=== PATIENT | female | born 1960 | race Caucasian/White ===

== ENCOUNTER 2016-11-15 16:07 | Inpatient (IN) ==
[2016-11-15] MEDS ORDERED: methylPREDNISolone 125 MG/2 ML VIAL IVP ONE (16:50)
[2016-11-15] MEDS ORDERED: Ipratropium/Albuterol Neb 3 ML IH ONE (16:50)
--- NOTE | 2016-11-15 17:02 | Emergency Department Note ---
Disposition Clinical Impression: Acute exacerbation of chronic obstructive airways disease Disposition: Admitted As Inpatient Condition: Good Time of Disposition: 18:53 SOB HPI - General Chief Complaint: ED Shortness of Breath/Dyspnea Stated Complaint: Cough, MARITZA, weak Time Seen by Provider: 11/15/16 16:50 Source: patient Limitations: no limitations Nursing Notes Reviewed: Yes Vital Signs Reviewed: Yes - History of Present Illness 56-year-old history of COPD comes in complaining of cough congestion shortness of breath over the last several days. Patient continues to smoke. Pt Subjective Complaint: shortness of breath, cough Onset (ago): day(s) Context: recent illness Severity: moderate Consistency/Duration: constant Improves with: nothing Worsens with: exertion, coughing Known history of: COPD Associated symptoms: Reports: cough, wheezing Treatment prior to arrival: none Cough present: Yes Cough Description: Involuntary Cough Frequency: Intermittent Sputum production: No - Related Data Home Medications Medication Instructions Recorded Confirmed Albuterol Neb [Proventil Neb] 2.5 mg IH Q6H PRN 11/16/16 11/16/16 Buspirone HCl [Buspar] 10 mg PO BID 11/16/16 11/16/16 Gabapentin [Neurontin] 300 mg PO TID 11/16/16 11/16/16 Oxygen 1 each NS AD 11/16/16 11/16/16 Allergies Allergy/AdvReac Type Severity Reaction Status Date / Time No Known Allergies Allergy Verified 09/11/15 22:57 All systems ED: reviewed and negative except as stated. Constitutional: Denies: fever, chills, weakness, weight change Eyes: Denies: eye pain, eye discharge, vision change ENT ED: Denies: ear pain, throat pain, dental pain, hearing loss, epistaxis, congestion, dysphagia Cardiovascular: Denies: chest pain, palpitations, dyspnea on exertion, edema, syncope Respiratory: Reports: cough, dyspnea, wheezes. Denies: hemoptysis, stridor Gastrointestinal: Denies: abdominal pain, nausea, vomiting, diarrhea, constipation, hematemesis, melena, hematochezia Genitourinary: Denies: dysuria, frequency, hematuria, discharge Musculoskeletal: Denies: back pain, neck pain, arthralgia, myalgia Integumentary: Denies: rash, abrasion, lesions Neurological: Denies: headache, weakness, numbness, paresthesias, confusion, abnormal gait, vertigo Psychiatric: Denies: anxiety, depression, suicidal thoughts, homicidal thoughts , auditory hallucinations, visual hallucinations Endocrine: Denies: fatigue Hematological/Lymphatic: Denies: easy bleeding, easy bruising Allergic/Immunologic: Denies: facial swelling, urticaria Past Medical History - Past Medical History Medical history: Reports: arthritis, COPD, GERD, hyperlipidemia, hypertension, osteoporosis, other Surgical history: Reports: other Psychiatric history: Reports: anxiety, depression PROJECT COORDINATOR history: Reports: no PROJECT COORDINATOR history - Social History Smoking Status: Current every day smoker Smokeless Tobacco Status: No Alcohol use: Reports: none Drug use: Reports: none Physical Exam - General Limitations: no limitations General appearance: alert, in no apparent distress - Head Head exam: atraumatic - Eye Eye exam: Present: normal appearance, PERRL, EOMI - ENT ENT exam: normal exam, normal oropharynx, mucous membranes moist - Neck Neck exam: Present: normal inspection, full ROM, trachea midline - Chest Chest inspection: Present: normal inspection, symmetric chest wall rise - Respiratory Respiratory exam: Present: respiratory distress, wheezes, accessory muscle use, prolonged expiratory phase - Cardiovascular Cardiovascular exam: Present: regular rate, normal rhythm, normal heart sounds - Abdominal Exam Abdominal exam: Present: soft, Non-Tender. Absent: tenderness, distention, guarding, rebound, rigidity - Extremities Exam Extremities exam: Present: normal inspection, full ROM. Absent: tenderness, pedal edema - Expanded Lower Extremity Exam Neurovascular/Tendon exam: Absent: motor deficit, sensory deficit, tendon deficit Gait: observed and normal - Back Exam Back exam: Present: normal inspection, full ROM. Absent: tenderness - Neurological Exam Neurological exam: Present: alert, oriented X3 - Psychiatric Psychiatric exam: Present: normal affect, normal mood - Skin Skin exam: Present: warm, dry, intact, normal color Course - Reevaluation(s) Reevaluation #1: Patient presents with increasing shortness of breath. Workup includes negative cardiac workup negative chest x-ray. Patient had diffuse wheezes is given IV steroids and albuterol had some improvement but continued to wheeze will be admitted for further evaluation and treatment. Time: 19:05 - Consultations Consultation #1: Discussed with , admit. Time: 19:06 Vital Signs Temperature 97.8 F 11/15/16 16:47 Pulse Rate 92 11/15/16 16:47 Respiratory Rate 16 11/15/16 16:47 Blood Pressure 109/74 11/15/16 16:47 O2 Sat by Pulse Oximetry 93 11/15/16 16:47 Temperature 97.5 F L 11/17/16 04:25 Pulse Rate 81 11/17/16 04:25 Respiratory Rate 16 11/17/16 04:25 Blood Pressure 119/72 11/17/16 04:25 O2 Sat by Pulse Oximetry 91 11/17/16 04:25 Oxygen Delivery Oxygen Delivery Nasal Cannula Shortness of Breath/Dyspnea - Lab Data Lab results reviewed: Yes I reviewed the patient's lab results. Result diagrams: 11/16/16 05:35 11/16/16 05:35 Lab Results 11/15/16 11/15/16 11/15/16 Range/Units 17:07 17:07 17:08 WBC 9.3 (4.3-11.1) K/mcL RBC 5.16 H (3.82-4.97) M/mcL Hgb 14.6 (11.5-15.4) g/dL Hct 45.0 H (35.3-44.9) % MCV 87.2 (83.0-100.0) fL MCH 28.3 (28.0-33.3) pg MCHC 32.4 (31.6-35.5) g/dL RDW 13.1 (11.5-14.5) % Plt Count 303 (140-400) K/mcL MPV 9.2 L (9.4-12.4) fL Immature Gran % 0.3 (0-4) % Seg Neutrophils % 54.1 % Lymphocytes % 32.9 % Monocytes % 9.2 % Eosinophils % 2.7 % Basophils % 0.8 % Neutrophils # 5.0 (1.6-8.9) K/mcL Lymphocytes # 3.1 (0.6-4.6) K/mcL Monocytes # 0.9 (0.0-1.3) K/mcL Eosinophils # 0.3 (0.0-0.6) K/mcL Basophils # 0.1 (0.0-0.2) K/mcL Immature Plt Fraction 4.1 (1.1-6.1) % Sodium 139 (136-145) mEq/L Potassium 4.1 (3.5-4.5) mEq/L Chloride 103 (98-109) mEq/L Carbon Dioxide 26 (19-29) mEq/L BUN 7 (7-20) mg/dL Creatinine 0.71 (0.57-1.11) mg/dL Est GFR ( Amer) > 60 (> 60) Est GFR (Non-Af Amer) > 60 (> 60) BUN/Creatinine Ratio 10 (6-26) Glucose 50 L (70-99) mg/dL Calculated Osmolality 283 (280-300) Lactic Acid 1.3 (0.5-2.2) mmol/L Calcium 9.7 (8.6-10.8) mg/dL Troponin I (0-0.03) ng/mL B-Natriuretic Peptide (0-100) pg/mL 11/15/16 11/15/16 Range/Units 17:08 17:08 WBC (4.3-11.1) K/mcL RBC (3.82-4.97) M/mcL Hgb (11.5-15.4) g/dL Hct (35.3-44.9) % MCV (83.0-100.0) fL MCH (28.0-33.3) pg MCHC (31.6-35.5) g/dL RDW (11.5-14.5) % Plt Count (140-400) K/mcL MPV (9.4-12.4) fL Immature Gran % (0-4) % Seg Neutrophils % % Lymphocytes % % Monocytes % % Eosinophils % % Basophils % % Neutrophils # (1.6-8.9) K/mcL Lymphocytes # (0.6-4.6) K/mcL Monocytes # (0.0-1.3) K/mcL Eosinophils # (0.0-0.6) K/mcL Basophils # (0.0-0.2) K/mcL Immature Plt Fraction (1.1-6.1) % Sodium (136-145) mEq/L Potassium (3.5-4.5) mEq/L Chloride (98-109) mEq/L Carbon Dioxide (19-29) mEq/L BUN (7-20) mg/dL Creatinine (0.57-1.11) mg/dL Est GFR ( Amer) (> 60) Est GFR (Non-Af Amer) (> 60) BUN/Creatinine Ratio (6-26) Glucose (70-99) mg/dL Calculated Osmolality (280-300) Lactic Acid (0.5-2.2) mmol/L Calcium (8.6-10.8) mg/dL Troponin I 0.00 (0-0.03) ng/mL B-Natriuretic Peptide 14 (0-100) pg/mL - Radiology Data Radiology results reviewed: Yes I reviewed the patient's radiology results. Chest X-Ray 11/15/16 16:50 IMPRESSION: No acute abnormality. COPD. D/ / Julien Huang MD / Julien Huang MD Interpreting Provider: Julien Huang MD - EKG Data EKG attestation: Yes I reviewed and interpreted this EKG. EKG shows normal: Reports: sinus rhythm Rate: Reports: normal Rhythm: Reports: NSR Interpretation: Reports: no acute changes
[2016-11-15 17:21] LABS: Basophils # 0.1 K/mcL (0.0-0.2); Basophils % 0.8 %; Eosinophils # 0.3 K/mcL (0.0-0.6); Eosinophils % 2.7 %; Hemoglobin 14.6 g/dL (11.5-15.4); Immature Granulocytes % 0.3 % (0-4); Immature Platelets 4.1 % (1.1-6.1); Lymphocytes # 3.1 K/mcL (0.6-4.6); Lymphocytes % 32.9 %; Mean Corpuscular HGB Conc 32.4 g/dL (31.6-35.5); Mean Corpuscular Hemoglobin 28.3 pg (28.0-33.3); Mean Corpuscular Volume 87.2 fL (83.0-100.0); Mean Platelet Volume 9.2 fL (9.4-12.4); Monocytes # 0.9 K/mcL (0.0-1.3); Monocytes % 9.2 %; Platelet Count 303 K/mcL (140-400); Red Blood Count 5.16 M/mcL (3.82-4.97); Red Cell Distribution Width 13.1 % (11.5-14.5); Segmented Neutrophils % 54.1 %
[2016-11-15 17:32] LABS: BUN/Creatinine Ratio 10 (6-26); Blood Urea Nitrogen 7 mg/dL (7-20); Calcium 9.7 mg/dL (8.6-10.8); Carbon Dioxide 26 mEq/L (19-29); Chloride 103 mEq/L (98-109); Glucose 50 mg/dL (70-99); Osmolality,Calculated 283 (280-300); Potassium 4.1 mEq/L (3.5-4.5); Sodium 139 mEq/L (136-145); eGFR For African Americans > 60 (> 60); eGFR For Non-African Americans > 60 (> 60)
[2016-11-15] MEDS ORDERED: Acetaminophen 325 MG TABLET PO PRN (21:08)
[2016-11-15] MEDS ORDERED: Ondansetron 4 MG/2 ML VIAL IVP PRN (21:08)
[2016-11-15] MEDS ORDERED: Naloxone 0.4 MG/ML INJ IVP PRN (21:08)
[2016-11-15] MEDS ORDERED: Albuterol 2.5 MG/3 ML NEBULIZER IH PRN (21:11)
[2016-11-15] MEDS ORDERED: methylPREDNISolone 60 MG in 0.9 % Sodium Chloride 100 ML IVPB SCH (21:15)
[2016-11-15] MEDS: Azithromycin 500 MG in D5% in Water 250 ML IVPB SCH (22:38)
[2016-11-15] MEDS: *HR* HYDROcodone/Acet 5/325 mg TABLET PO PRN (22:38)
[2016-11-15] MEDS: Ipratropium/Albuterol Neb 3 ML IH SCH (23:19)
[2016-11-15] MEDS: methylPREDNISolone 125 MG/2 ML VIAL IVP SCH (23:26)
--- NOTE | 2016-11-16 03:15 | Internal Med History&Physical ---
Date of Encounter: 11/15/16 Time of Encounter: 21:00 Assessment and Plan (1) Acute exacerbation of chronic obstructive pulmonary disease (COPD) Current visit: Yes Status: Acute Presents with worsening cough, dyspnea, wheezing. No infiltrates on chest XRay. Improving with nebs. Will continue IV steroids, scheduled bronchodilator treatments, supplemental O2 and ICS. Monitor closely. (2) Tobacco abuse Current visit: Yes Status: Chronic Smoking cessation counseling done; patient reluctant to consider quitting, but being encouraged to do so by family. Refuses Nicotine transdermal patch. (3) Osteoarthritis Current visit: Yes Status: Chronic Qualifiers: Osteoarthritis location: unspecified site Osteoarthritis type: unspecified Qualified Code(s): M19.90 - Unspecified osteoarthritis, unspecified site (4) Depression Current visit: Yes Status: Chronic resume home meds; Qualifiers: Depression Type: unspecified Qualified Code(s): F32.9 - Major depressive disorder, single episode, unspecified (5) Anxiety Current visit: Yes Status: Chronic (6) Chronic respiratory failure Current visit: Yes Status: Chronic due to COPD; noted to have 3L/min O2 at home via [place]; Qualifiers: Respiratory failure complication: hypoxia Qualified Code(s): J96.11 - Chronic respiratory failure with hypoxia Internal Medicine - H&P: HPI Chief complaint: Shortness of breath Admitted From: Emergency Dept Plans for Post Hospital Care: Home History of present illness: Ms. Bush is a 56 year old female with h/o- COPD and chronic tobacco abuse, presents with c/o- worsening cough and shortness of breath. Patient reports having some dyspnea and dry cough at baseline, but started to have significantly worsening dyspnea, both at rest and on exertion, associated with productive cough with clear mucus, chest tightness, chills and wheezing. No reported fever, dizziness, syncope, hemoptysis. She reports compliance to inhalers and nebs at home, but continues to smoke heavily per family. Past Med Surg Social Fam HX - Past Medical History Medical history: arthritis, COPD, GERD, hypertension, osteoporosis, other Psychiatric history: anxiety, depression - Past Surgical History Surgical History: cholecystectomy, other (tubal ligation, brain aneurysm repair) - Social History Smoking Status: Current every day smoker Packs per day: 1-1.5, at least 35 pack years Smokeless Tobacco Status: No Alcohol use: none Drug use: none Current living situation: Home, With Family Activity Level: Independent ambulation Recent Out of Country Travel Within the Last 8 Weeks: No - Family History Mother Living Status: Still Living Hx Family Cardiac Disorders: Yes (HTN) Hx Family Respiratory Disorders: No Hx Family Cancer: No Hx Family GI Disorders: No Hx Family Endocrine Disorder: No Hx Family Neuromuscular Disorders: No Hx Family Neurologic Disorders: No Hx Family HEENT Disorders: No Hx Family Autoimmune Disorders: No Father Living Status: Hx Family Cardiac Disorders: No Hx Family Respiratory Disorders: No Hx Family Cancer: No Hx Family GI Disorders: No Hx Family Endocrine Disorder: No Hx Family Neuromuscular Disorders: No Hx Family Neurologic Disorders: No Hx Family HEENT Disorders: No Hx Family Autoimmune Disorders: No Internal Medicine - H&P: Meds Allergies No Known Allergies Allergy (Verified 09/11/15 22:57) All Systems PM: A 10-system review of systems was performed and is negative for pertinent findings except as documented above in the HPI. - Constitutional Constitutional: chills, malaise - EENT Eyes: no change in vision, no discharge, no pain, no photophobia Ears: no ear discharge, no ear pain, no tinnitus Nose, mouth and throat: no dysphagia, no nasal discharge, no neck pain, no sore throat - Cardiovascular Cardiovascular ROS IM: dyspnea, dyspnea on exertion, no chest pain, no diaphoresis, no lightheadedness, no palpitations, no syncope - Respiratory Respiratory: cough, dyspnea, dyspnea on exertion, wheezing, chest congestion - Gastrointestinal Gastrointestinal: no abdominal pain, no diarrhea, no hematemesis, no hematochezia, no melena, no nausea, no vomiting - Genitourinary Genitourinary: no change in urinary stream, no dysuria, no flank pain, no hematuria - Musculoskeletal Musculoskeletal ROS IM: no numbness, no tingling - Integumentary Integumentary IM: no rash, no unusual bruising - Neurological Neurological ROS: no confusion, no convulsions, no focal weakness, no numbness, no tingling, no tremor(s) - Hematologic/Lymphatic Hematologic/Lymphatic: no easy bruising - Constitutional Vitals: Temp Pulse Resp BP Pulse Ox 97.8 F 78 16 118/75 96 11/15/16 22:34 11/15/16 22:34 11/15/16 23:19 11/15/16 22:34 11/15/16 23:19 General appearance: Present: mild distress, A&O X 3, answers questions appropriately - Respiratory Respiratory exam: Present: CTAB (B/L coarse breath sounds). Absent: accessory muscle use, rales, rhonchi, wheezes - Cardiovascular Cardiovascular exam: Present: RRR, +S1, +S2. Absent: diastolic murmur, gallop, rubs, systolic murmur - GI/Abdominal GI/Abdominal exam: Present: normal bowel sounds, soft, no peritoneal signs. Absent: distended, tenderness - Extremities Exam Extremities exam: Present: full ROM, warm, radial pulses palpable and symetrical. Absent: calf tenderness, cyanotic, pedal edema - Neurological Exam Neurological exam: Present: CN II-XII intact, oriented X3, no focal deficits. Absent: pronater drift, facial droop, speech deficit - Skin Skin exam: Present: dry, intact Internal Med - H&P Results - Labs CBC & Chem 7: 11/15/16 17:07 11/15/16 17:07
[2016-11-16] MEDS: Ipratropium/Albuterol Neb 3 ML IH SCH ×6 (03:37→23:45)
[2016-11-16] MEDS: *HR* Heparin 5,000 UNIT/ML VIAL SQ SCH ×2 (05:47→17:57)
[2016-11-16 05:52] LABS: Basophils % 0.2 %; Hematocrit 39.6 % (35.3-44.9); Immature Granulocytes % 0.4 % (0-4); Lymphocytes # 0.8 K/mcL (0.6-4.6); Lymphocytes % 14.5 %; Mean Corpuscular HGB Conc 32.6 g/dL (31.6-35.5); Mean Corpuscular Hemoglobin 28.4 pg (28.0-33.3); Mean Platelet Volume 9.5 fL (9.4-12.4); Monocytes # 0.1 K/mcL (0.0-1.3); Monocytes % 1.5 %; Neutrophils # 4.5 K/mcL (1.6-8.9); Platelet Count 268 K/mcL (140-400); Red Blood Count 4.55 M/mcL (3.82-4.97); Red Cell Distribution Width 12.7 % (11.5-14.5); Segmented Neutrophils % 83.4 %
[2016-11-16 05:57] LABS: Hemoglobin 12.9 g/dL (11.5-15.4)
[2016-11-16 06:11] LABS: BUN/Creatinine Ratio 14 (6-26); Blood Urea Nitrogen 10 mg/dL (7-20); Calcium 9.4 mg/dL (8.6-10.8); Carbon Dioxide 24 mEq/L (19-29); Chloride 103 mEq/L (98-109); Glucose 189 mg/dL (70-99); Magnesium 2.4 mg/dL (1.6-2.6); Osmolality,Calculated 286 (280-300); Potassium 4.2 mEq/L (3.5-4.5); Sodium 136 mEq/L (136-145); eGFR For African Americans > 60 (> 60); eGFR For Non-African Americans > 60 (> 60)
[2016-11-16] MEDS: methylPREDNISolone 125 MG/2 ML VIAL IVP SCH ×2 (08:21→16:08)
[2016-11-16] MEDS: *HR* HYDROcodone/Acet 5/325 mg TABLET PO PRN ×2 (08:28→17:57)
[2016-11-16] MEDS ORDERED: ALPRAZolam 1 MG TABLET PO SCH (09:00)
[2016-11-16] MEDS ORDERED: ALPRAZolam 1 MG TABLET PO PRN (11:07)
--- NOTE | 2016-11-16 12:57 | Internal Med Progress Note ---
Date of Encounter: 11/16/16 Time of Encounter: 09:30 - Assessment and plan (1) Acute exacerbation of chronic obstructive pulmonary disease (COPD) Current Visit: Yes Status: Acute Assessment and plan: Patient stating her shortness of breath has improved but she is not yet back to her baseline. She has a moist but nonproductive cough, will add expectorants. Continue duo nebs every 4, albuterol every 2 as needed. In further discussion with the patient, she states she is only able to afford 3 medications at home including albuterol, gabapentin, and BuSpar. services host brought on board. Chest x-ray without acute processes. Continue azithromycin. ITS Impressions Chest X-Ray 11/15/16 16:50 IMPRESSION: No acute abnormality. COPD. D/ / Julien Huang MD / Julien Huang MD Interpreting Provider: Julien Huang MD (2) Acute and chronic respiratory failure Current Visit: Yes Status: Acute Assessment and plan: Increased need for supplemental oxygenation. At home, patient wears 3 L per nasal cannula as needed, she is currently on 4 L continuously here. (3) Tobacco abuse Current Visit: Yes Status: Chronic Assessment and plan: Patient continues to smoke approximately 1-1-1/2 packs per day. She declines smoking cessation counseling. She declines nicotine replacement therapy at this time. (4) Depression Current Visit: Yes Status: Chronic Assessment and plan: Mood and affect stable. Qualifiers: Depression Type: unspecified Qualified Code(s): F32.9 - Major depressive disorder, single episode, unspecified (5) Anxiety Current Visit: Yes Status: Chronic (6) History of sciatica Current Visit: No Status: Chronic Assessment and plan: denies current symptoms. - Subjective Interval history: Patient seen and examined. On examination, patient is sitting upright in bed conversing with her . Patient continued to endorse shortness of breath above her norm though states she feels better than yesterday. She states she is only able to afford 3 of her oral medications. She states she feels as if she has a lot of mucus in her chest but her cough has been nonproductive. - Constitutional Vitals: Temp Pulse Resp BP Pulse Ox 98.2 F 70 16 100/65 93 11/16/16 11:13 11/16/16 11:13 11/16/16 11:13 11/16/16 11:13 11/16/16 11:13 General appearance: Present: mild distress, A&O X 3, pleasant, answers questions appropriately - Head Head exam: Present: atraumatic, normocephalic - Eye Eye exam: Present: PERRL, conjuntiva pink, sclera anicteric Pupils: Present: PERRL - Neck Neck exam general surgery: Present: supple, trachea midline. Absent: lymphadenopathy - Respiratory Respiratory exam: Present: accessory muscle use, decreased breath sounds, prolonged expiratory phase, respiratory distress, rhonchi, wheezes. Absent: rales - Cardiovascular Cardiovascular exam: Present: RRR, +S1, +S2. Absent: diastolic murmur, gallop, rubs, systolic murmur - GI/Abdominal GI/Abdominal exam: Present: normal bowel sounds, soft, no peritoneal signs. Absent: distended, tenderness - Extremities Exam Extremities exam: Present: warm, radial pulses palpable and symetrical. Absent : calf tenderness, cyanotic, pedal edema - Neurological Exam Neurological exam: Present: alert, CN II-XII intact, oriented X3, no focal deficits, strengths equal and symetr throughout. Absent: pronater drift, facial droop, speech deficit - Skin Skin exam: Present: dry, intact, pallor, warm Internal Medicine: Result - Labs CBC & Chem 7: 11/16/16 05:35 11/16/16 05:35 Labs: Short CBC 11/16/16 Range/Units 05:35 WBC 5.4 (4.3-11.1) K/mcL Hgb 12.9 D (11.5-15.4) g/dL Hct 39.6 (35.3-44.9) % Plt Count 268 (140-400) K/mcL Neutrophils # 4.5 (1.6-8.9) K/mcL BMP 11/16/16 05:35 Sodium 136 Potassium 4.2 Chloride 103 Carbon Dioxide 24 BUN 10 Creatinine 0.74 Glucose 189 H Calcium 9.4 Consult Discharge Plan - Plan Referrals: Denisse Asher DO [Primary Care Provider] -
[2016-11-16] MEDS ORDERED: *HR* Acetaminophen w/Cod 300-30 mg 1 TAB TABLET PO PRN (13:02)
[2016-11-16] MEDS ORDERED: Albuterol 2.5 MG/3 ML NEBULIZER IH PRN (13:03)
--- NOTE | 2016-11-16 17:04 | Electrocardiograph Report ---
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
[2016-11-16] MEDS: Azithromycin 500 MG in D5% in Water 250 ML IVPB SCH (22:00)
[2016-11-17] MEDS: methylPREDNISolone 125 MG/2 ML VIAL IVP SCH ×2 (00:06→09:26)
[2016-11-17] MEDS: Ipratropium/Albuterol Neb 3 ML IH SCH ×3 (03:33→11:15)
[2016-11-17] MEDS: *HR* HYDROcodone/Acet 5/325 mg TABLET PO PRN (04:20)
[2016-11-17] MEDS: *HR* Heparin 5,000 UNIT/ML VIAL SQ SCH (05:53)
[2016-11-17 07:38] VITALS: BP 101/65
--- NOTE | 2016-11-17 11:18 | Discharge Summary ---
Date of Encounter: 11/17/16 Time of Encounter: 11:16 - Discharge Diagnosis (1) Joint pain of right hip on movement Priority: Secondary Status: Acute (2) History of sciatica Priority: Secondary Status: Chronic (3) Acute exacerbation of chronic obstructive pulmonary disease (COPD) Priority: Primary Status: Acute (4) Nicotine dependence with nicotine-induced disorder Priority: Secondary Status: Chronic Qualifiers: Nicotine product type: cigarettes Qualified Code(s): F17.219 - Nicotine dependence, cigarettes, with unspecified nicotine-induced disorders (5) Acute and chronic respiratory failure Priority: Secondary Status: Acute Qualifiers: Respiratory failure complication: unspecified whether with hypoxia or hypercapnia Qualified Code(s): J96.20 - Acute and chronic respiratory failure , unspecified whether with hypoxia or hypercapnia - Discharge Medications Prescriptions: HYDROcodone/Acet 5/325 mg [Burlison 5-325 mg] 1 tab PO Q8HR PRN #20 tablet PRN Reason: Pain Azithromycin [Zithromax] 250 mg PO DAILY #5 tablet GuaiFENesin ER [Mucinex] 600 mg PO BID #14 tbbp.12hr Ipratropium/Albuterol Neb [Duoneb] 3 ml IH TID #30 inhsol predniSONE [PredniSONE] 60 mg PO DAILY #52 tablet Home Medications: Albuterol Neb [Proventil Neb] 2.5 mg IH Q6H PRN 11/16/16 [History] Buspirone HCl [Buspar] 10 mg PO BID 11/16/16 [History] Gabapentin [Neurontin] 300 mg PO TID 11/16/16 [History] Oxygen 1 each NS AD 11/16/16 [History] Azithromycin [Zithromax] 250 mg PO DAILY #5 tablet 11/17/16 [Rx] GuaiFENesin ER [Mucinex] 600 mg PO BID #14 tbbp.12hr 11/17/16 [Rx] HYDROcodone/Acet 5/325 mg [Burlison 5-325 mg] 1 tab PO Q8HR PRN #20 tablet [Rx] Ipratropium/Albuterol Neb [Duoneb] 3 ml IH TID #30 inhsol 11/17/16 [Rx] predniSONE [PredniSONE] 60 mg PO DAILY #52 tablet 11/17/16 [Rx] Allergies/Adverse Reactions: Allergies No Known Allergies Allergy (Verified 03/16/16 22:57) Date of admission: 11/15/16 21:08 Primary care physician: Denisse Asher DO Consults: 11/16/16 11:07 Consult to Signal Circuit Designer [CONS] Routine Reason for SW Consult: needs help with home medications - Patient Status Disposition: Home, Self-Care Condition: Good Functional capacity at discharge: independent ambulation Overall status at discharge: patient is progressing back to baseline - Discharge Instructions Follow Up With: Denisse Asher DO [Primary Care Provider] - Additional Instructions: Avoid cigarette smoking. Follow-up with primary care physician in one to 2 weeks. If he cannot afford your medications the hospital social media developer can help. - Diet and Activity Activity: increase activity as tolerated Diet: regular diet Hospital course: Ms. Bush is a 56 year old female with past medical history significant for COPD , chronic tobacco abuse and chronic hypoxic respiratory failure on home oxygen who presented to the hospital for worsening cough and shortness of breath. She denied fevers chills and chest pain. Her initial workup included a chest x-ray which was negative for pneumonia. She was severely hypoxic and required increased oxygen from her baseline. She was admitted to the medical service and treated with inhaled bronchodilators, IV steroids and IV azithromycin. She made a good clinical improvement and today her shortness of breath is close to her baseline. Her oxygen saturation has improved and it is up to 96% on her baseline of 3 L/m. She will be transitioned to oral steroids and prescribed a slow prednisone taper. She will be prescribed azithromycin and guaifenesin and will be discharged home. I have provided excessive smoking cessation counseling. Time spent discussing smoking cessation with patient: 3 to 10 minutes - Time Spent with Patient Total time spent providing and/or coordinating discharge services: Greater than 30 minutes (I have spent 40 minutes coordinating this discharge.) - Constitutional Vitals: Temp Pulse Resp BP Pulse Ox 97.8 F 68 14 101/65 96 11/17/16 07:37 11/17/16 07:37 11/17/16 08:06 11/17/16 07:37 11/17/16 09:22 General appearance: Present: mild distress, A&O X 3, pleasant, answers questions appropriately - Respiratory Respiratory exam: Present: CTAB. Absent: accessory muscle use, rales, rhonchi, wheezes - Cardiovascular Cardiovascular exam: Present: RRR, +S1, +S2. Absent: diastolic murmur, gallop, rubs, systolic murmur - Extremities Exam Extremities exam: Present: warm, radial pulses palpable and symetrical. Absent : calf tenderness, cyanotic, pedal edema
== END 2016-11-17 14:06 | disposition home or self-care (01) | DRG 190 ==
LOC: EMEROO 16:07 → 3BNU 16:07 → SUATTDRO 21:08
PROVIDERS: ADMIT Internal Medicine Sleep Medicine; ATTEND Internal Medicine

== ENCOUNTER 2017-06-05 11:55 | Observation (INO) ==
[2017-06-05] MEDS ORDERED: Ipratropium/Albuterol Neb 3 ML IH ONE (11:58)
--- NOTE | 2017-06-05 11:59 | Emergency Department Note ---
Disposition Clinical Impression: Acute exacerbation of chronic obstructive pulmonary disease (COPD), Community acquired pneumonia Disposition: Admitted As Inpatient Condition: Good General Adult HPI - General Chief complaint: ED Shortness of Breath/Dyspnea Stated complaint: Khai Time Seen by Provider: 06/05/17 11:57 - Related Data Home Medications Medication Instructions Recorded Confirmed Albuterol Neb [Proventil Neb] 2.5 mg IH Q6H PRN 11/16/16 06/05/17 Buspirone HCl [Buspar] 10 mg PO BID 11/16/16 06/05/17 Gabapentin [Neurontin] 300 mg PO TID 11/16/16 06/05/17 Oxygen 3 l NS HS 11/16/16 06/05/17 Previous Rx's Medication Instructions Recorded GuaiFENesin ER [Mucinex] 600 mg PO BID #14 tbbp.12hr 11/17/16 Ipratropium/Albuterol Neb [Duoneb] 3 ml IH TID #30 inhsol 11/17/16 Naproxen [Naprosyn] 500 mg PO BID #30 tablet 01/11/17 Allergies Allergy/AdvReac Type Severity Reaction Status Date / Time No Known Allergies Allergy Verified 09/11/15 22:57 Past Medical History - Past Medical History Medical history: Reports: arthritis, COPD, GERD, hyperlipidemia, hypertension, osteoporosis, other Surgical history: Reports: other Psychiatric history: Reports: anxiety, depression 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 history - Social History Smoking Status: Current every day smoker Smokeless Tobacco Status: No Alcohol use: Reports: none Drug use: Reports: none Course Vital Signs Temperature 98.7 F 06/05/17 11:58 Pulse Rate 113 06/05/17 11:58 Respiratory Rate 25 06/05/17 11:58 Blood Pressure 133/82 06/05/17 11:58 O2 Sat by Pulse Oximetry 92 06/05/17 11:58 Temperature 98.9 F 06/05/17 14:45 Pulse Rate 99 06/05/17 14:45 Respiratory Rate 16 06/05/17 15:59 Blood Pressure 107/72 06/05/17 14:45 O2 Sat by Pulse Oximetry 94 06/05/17 15:59 Oxygen Delivery Oxygen Delivery Nasal Cannula Medical Decision Making - Lab Data Result diagrams: 06/05/17 12:21 06/05/17 12:21 Lab Results 06/05/17 06/05/17 06/05/17 Range/Units 12:21 12:21 12:21 WBC 19.1 H (4.3-11.1) K/mcL RBC 5.08 H (3.82-4.97) M/mcL Hgb 14.7 (11.5-15.4) g/dL Hct 45.4 H (35.3-44.9) % MCV 89.4 (83.0-100.0) fL MCH 28.9 (28.0-33.3) pg MCHC 32.4 (31.6-35.5) g/dL RDW 13.1 (11.5-14.5) % Plt Count 318 (140-400) K/mcL MPV 9.3 L (9.4-12.4) fL Immature Gran % 0.3 (0-4) % Seg Neutrophils % 73.0 % Lymphocytes % 15.1 % Monocytes % 11.1 % Eosinophils % 0.1 % Basophils % 0.4 % Neutrophils # 14.0 H (1.6-8.9) K/mcL Lymphocytes # 2.9 (0.6-4.6) K/mcL Monocytes # 2.1 H (0.0-1.3) K/mcL Eosinophils # 0.0 (0.0-0.6) K/mcL Basophils # 0.1 (0.0-0.2) K/mcL Sodium 137 (136-145) mEq/L Potassium 3.9 (3.5-4.5) mEq/L Chloride 97 L (98-109) mEq/L Carbon Dioxide 28 (19-29) mEq/L BUN 10 (7-20) mg/dL Creatinine 0.74 (0.57-1.11) mg/dL Est GFR ( Amer) > 60 (> 60) Est GFR (Non-Af Amer) > 60 (> 60) BUN/Creatinine Ratio 14 (6-26) Glucose 113 H (70-99) mg/dL Calculated Osmolality 284 (280-300) Calcium 9.5 (8.6-10.8) mg/dL Troponin I 0.01 (0-0.03) ng/mL B-Natriuretic Peptide (0-100) pg/mL 06/05/17 Range/Units 12:21 WBC (4.3-11.1) K/mcL RBC (3.82-4.97) M/mcL Hgb (11.5-15.4) g/dL Hct (35.3-44.9) % MCV (83.0-100.0) fL MCH (28.0-33.3) pg MCHC (31.6-35.5) g/dL RDW (11.5-14.5) % Plt Count (140-400) K/mcL MPV (9.4-12.4) fL Immature Gran % (0-4) % Seg Neutrophils % % Lymphocytes % % Monocytes % % Eosinophils % % Basophils % % Neutrophils # (1.6-8.9) K/mcL Lymphocytes # (0.6-4.6) K/mcL Monocytes # (0.0-1.3) K/mcL Eosinophils # (0.0-0.6) K/mcL Basophils # (0.0-0.2) K/mcL Sodium (136-145) mEq/L Potassium (3.5-4.5) mEq/L Chloride (98-109) mEq/L Carbon Dioxide (19-29) mEq/L BUN (7-20) mg/dL Creatinine (0.57-1.11) mg/dL Est GFR ( Amer) (> 60) Est GFR (Non-Af Amer) (> 60) BUN/Creatinine Ratio (6-26) Glucose (70-99) mg/dL Calculated Osmolality (280-300) Calcium (8.6-10.8) mg/dL Troponin I (0-0.03) ng/mL B-Natriuretic Peptide 58 (0-100) pg/mL Attestation Statement - Attestation Attestation: I examined this patient and my medical decision-making was reviewed with the Resident Physician. I agree with the documented findings, disposition and treatment plan as described except to the extent set forth below. [id number] time provided Patient arrives by EMS complaining of dyspnea. She is an active smoker with history of COPD. Appears visibly dyspneic on exam. Appears thin, somewhat frail, older than stated age 12:54: Patient meets criteria for sepsis given tachycardia, tachypnea, chest x- ray infiltrate. Lactate and cultures ordered. Patient is not given 30 mL per KG of saline fluid because she is not hypotensive
[2017-06-05] MEDS ORDERED: methylPREDNISolone 125 MG/2 ML VIAL IVP ONE (12:01)
--- NOTE | 2017-06-05 12:04 | Emergency Department Note ---
Disposition Clinical Impression: Acute exacerbation of chronic obstructive pulmonary disease (COPD) Community acquired pneumonia Qualifiers: Laterality: unspecified laterality Qualified Code(s): J18.9 - Pneumonia, unspecified organism Disposition: Admitted As Inpatient Condition: Good Time of Disposition: 13:12 SOB HPI - General Chief Complaint: ED Shortness of Breath/Dyspnea Stated Complaint: Khai Time Seen by Provider: 06/05/17 11:57 Source: patient, EMS Mode of arrival: EMS Limitations: no limitations Nursing Notes Reviewed: Yes Vital Signs Reviewed: Yes - History of Present Illness 56-year-old female history of COPD on 3 L home oxygen supplementation and hyperlipidemia presents to the ED via EMS for difficulty breathing. Progressively worse over the past week. She just recently saw primary care physician who prescribed or prednisone about 4 days ago. States she is been taken that as well as increasing use of her inhalers. Today she woke up very short of breath with some intermittent chest pain on the right. Denies any diaphoresis. Patient has required admission for her COPD over year ago. She denies any other complaints at this time. She denies any recent fever or chills. She has a dry cough no change in sputum production. Pt Subjective Complaint: shortness of breath, cough, chest pain - Related Data Home Medications Medication Instructions Recorded Confirmed Albuterol Neb [Proventil Neb] 2.5 mg IH Q6H PRN 11/16/16 06/05/17 Buspirone HCl [Buspar] 10 mg PO BID 11/16/16 06/05/17 Gabapentin [Neurontin] 300 mg PO TID 11/16/16 06/05/17 Oxygen 3 l NS HS 11/16/16 06/05/17 Previous Rx's Medication Instructions Recorded GuaiFENesin ER [Mucinex] 600 mg PO BID #14 tbbp.12hr 11/17/16 Ipratropium/Albuterol Neb [Duoneb] 3 ml IH TID #30 inhsol 11/17/16 Naproxen [Naprosyn] 500 mg PO BID #30 tablet 01/11/17 Allergies Allergy/AdvReac Type Severity Reaction Status Date / Time No Known Allergies Allergy Verified 09/11/15 22:57 All systems ED: reviewed and negative except as stated. Review of Systems: As Per HPI Constitutional: Denies: fever, chills ENT ED: Reports: congestion Cardiovascular: Reports: chest pain, dyspnea on exertion Respiratory: Reports: cough, dyspnea, wheezes Gastrointestinal: Denies: abdominal pain, nausea, vomiting Genitourinary: Denies: urgency, dysuria Musculoskeletal: Denies: back pain, neck pain Integumentary: Denies: rash, abrasion, lesions Neurological: Denies: headache Past Medical History - Past Medical History Attestation: Yes The following information was validated with the patient. 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: Reports: no AFTER SCHOOL PROGRAM DIRECTOR history - Social History Smoking Status: Current every day smoker Smokeless Tobacco Status: No Alcohol use: Reports: none Drug use: Reports: none Physical Exam - General Limitations: no limitations General appearance: alert, in no apparent distress - Head Head exam: atraumatic, normocephalic, normal inspection - Eye Eye exam: Present: normal appearance, PERRL, EOMI - ENT ENT exam: normal exam, normal oropharynx, mucous membranes moist - Neck Neck exam: Present: normal inspection, full ROM, trachea midline - Chest Chest inspection: Present: normal inspection, symmetric chest wall rise - Respiratory Respiratory exam: Present: wheezes, other (tight breath sounds on right). Absent: respiratory distress - Expanded Respiratory Exam Location: wheezes: Left, decreased breath sounds: Right - Cardiovascular Cardiovascular exam: Present: regular rate, normal rhythm, normal heart sounds - Abdominal Exam Abdominal exam: Present: soft, Non-Tender, normal bowel sounds. Absent: tenderness, distention, guarding, rebound, rigidity - Extremities Exam Extremities exam: Present: normal inspection, full ROM, normal capillary refill. Absent: tenderness, pedal edema, calf tenderness - Back Exam Back exam: Present: normal inspection, full ROM. Absent: tenderness, CVA tenderness (R), CVA tenderness (L), vertebral tenderness - Neurological Exam Neurological exam: Present: alert, oriented X3, normal gait - Psychiatric Psychiatric exam: Present: normal affect, normal mood - Skin Skin exam: Present: warm, dry, intact, normal color. Absent: rash, cyanosis, diaphoresis Course - Reevaluation(s) Reevaluation #1: Patient presents with worsening shortness of breath. She has responded well after continuous DuoNeb treatment. She is received steroids as well. On repeat evaluation lungs are improved with scattered wheezing. Her right lung field is less tight. She would benefit admission she has failed outpatient treatment for her COPD exacerbation. Chest x-ray also concern for infiltrate and pneumonia. She has not been hospitalized over the past 3 months will treat for community acquired pneumonia with Levaquin. With infiltrate as well as tachycardia and leukocytosis of 19 she meets sepsis criteria. She is not hypotensive and does not require aggressive fluid resuscitation of 30 mL per kilogram. Will get a lactate in a time Lactaid as well as blood cultures. Patient has been admitted her COPD exacerbation and community acquired pneumonia. She is in agreement with this plan. Time: 13:00 Reevaluation #2: Lactate is 1.1. Time: 14:18 - Consultations Consultation #1: Spoke with on-call hospitalist david Lee to admit for COPD exacerbation and CAP. No further orders at this time Time: 13:11 Vital Signs Temperature 98.7 F 06/05/17 11:58 Pulse Rate 113 06/05/17 11:58 Respiratory Rate 25 06/05/17 11:58 Blood Pressure 133/82 06/05/17 11:58 O2 Sat by Pulse Oximetry 92 06/05/17 11:58 Temperature 98.7 F 06/05/17 11:58 Pulse Rate 107 06/05/17 13:37 Respiratory Rate 24 06/05/17 13:37 Blood Pressure 115/68 06/05/17 13:37 O2 Sat by Pulse Oximetry 92 06/05/17 13:37 Oxygen Delivery Oxygen Delivery Nasal Cannula Shortness of Breath/Dyspnea - MDM Narrative Medical decision making narrative: Patient was discussed with my attending physician who agrees with ED management and final disposition. They independently evaluated the patient. Please refer to their attestation to this encounter for additional information. This note was generated by [employer] voice recognition software and as a result grammatical or spelling errors may occur using this program. - Medical Records Medical records reviewed: Yes I reviewed the patient's medical records. - Lab Data Lab results reviewed: Yes I reviewed the patient's lab results. Result diagrams: 06/05/17 12:21 06/05/17 12:21 Lab Results 06/05/17 06/05/17 06/05/17 Range/Units 12:21 12:21 12:21 WBC 19.1 H (4.3-11.1) K/mcL RBC 5.08 H (3.82-4.97) M/mcL Hgb 14.7 (11.5-15.4) g/dL Hct 45.4 H (35.3-44.9) % MCV 89.4 (83.0-100.0) fL MCH 28.9 (28.0-33.3) pg MCHC 32.4 (31.6-35.5) g/dL RDW 13.1 (11.5-14.5) % Plt Count 318 (140-400) K/mcL MPV 9.3 L (9.4-12.4) fL Immature Gran % 0.3 (0-4) % Seg Neutrophils % 73.0 % Lymphocytes % 15.1 % Monocytes % 11.1 % Eosinophils % 0.1 % Basophils % 0.4 % Neutrophils # 14.0 H (1.6-8.9) K/mcL Lymphocytes # 2.9 (0.6-4.6) K/mcL Monocytes # 2.1 H (0.0-1.3) K/mcL Eosinophils # 0.0 (0.0-0.6) K/mcL Basophils # 0.1 (0.0-0.2) K/mcL Sodium 137 (136-145) mEq/L Potassium 3.9 (3.5-4.5) mEq/L Chloride 97 L (98-109) mEq/L Carbon Dioxide 28 (19-29) mEq/L BUN 10 (7-20) mg/dL Creatinine 0.74 (0.57-1.11) mg/dL Est GFR ( Amer) > 60 (> 60) Est GFR (Non-Af Amer) > 60 (> 60) BUN/Creatinine Ratio 14 (6-26) Glucose 113 H (70-99) mg/dL Calculated Osmolality 284 (280-300) Calcium 9.5 (8.6-10.8) mg/dL Troponin I 0.01 (0-0.03) ng/mL B-Natriuretic Peptide (0-100) pg/mL 06/05/17 Range/Units 12:21 WBC (4.3-11.1) K/mcL RBC (3.82-4.97) M/mcL Hgb (11.5-15.4) g/dL Hct (35.3-44.9) % MCV (83.0-100.0) fL MCH (28.0-33.3) pg MCHC (31.6-35.5) g/dL RDW (11.5-14.5) % Plt Count (140-400) K/mcL MPV (9.4-12.4) fL Immature Gran % (0-4) % Seg Neutrophils % % Lymphocytes % % Monocytes % % Eosinophils % % Basophils % % Neutrophils # (1.6-8.9) K/mcL Lymphocytes # (0.6-4.6) K/mcL Monocytes # (0.0-1.3) K/mcL Eosinophils # (0.0-0.6) K/mcL Basophils # (0.0-0.2) K/mcL Sodium (136-145) mEq/L Potassium (3.5-4.5) mEq/L Chloride (98-109) mEq/L Carbon Dioxide (19-29) mEq/L BUN (7-20) mg/dL Creatinine (0.57-1.11) mg/dL Est GFR ( Amer) (> 60) Est GFR (Non-Af Amer) (> 60) BUN/Creatinine Ratio (6-26) Glucose (70-99) mg/dL Calculated Osmolality (280-300) Calcium (8.6-10.8) mg/dL Troponin I (0-0.03) ng/mL B-Natriuretic Peptide 58 (0-100) pg/mL - Radiology Data Radiology results reviewed: Yes I reviewed the patient's radiology results. Chest X-Ray 06/05/17 12:01 IMPRESSION: Emphysematous changes with bibasilar scarring. Right mid lung and basilar opacities appear slightly increased from prior exam and could represent a developing infiltrate. D/ / 06/05/2017 12:47:15 Derrick Posey MD / lloyd Interpreting Provider: Derrick Posey MD - EKG Data EKG attestation: Yes I reviewed and interpreted this EKG. EKG results narrative: EKG performed 1207 sinus tachycardia 114
[2017-06-05 12:36] LABS: Basophils # 0.1 K/mcL (0.0-0.2); Basophils % 0.4 %; Eosinophils % 0.1 %; Hematocrit 45.4 % (35.3-44.9); Hemoglobin 14.7 g/dL (11.5-15.4); Immature Granulocytes % 0.3 % (0-4); Lymphocytes # 2.9 K/mcL (0.6-4.6); Lymphocytes % 15.1 %; Mean Corpuscular HGB Conc 32.4 g/dL (31.6-35.5); Mean Corpuscular Hemoglobin 28.9 pg (28.0-33.3); Mean Corpuscular Volume 89.4 fL (83.0-100.0); Mean Platelet Volume 9.3 fL (9.4-12.4); Monocytes # 2.1 K/mcL (0.0-1.3); Monocytes % 11.1 %; Platelet Count 318 K/mcL (140-400); Red Blood Count 5.08 M/mcL (3.82-4.97); Red Cell Distribution Width 13.1 % (11.5-14.5)
[2017-06-05 12:45] LABS: BUN/Creatinine Ratio 14 (6-26); Blood Urea Nitrogen 10 mg/dL (7-20); Calcium 9.5 mg/dL (8.6-10.8); Carbon Dioxide 28 mEq/L (19-29); Chloride 97 mEq/L (98-109); Glucose 113 mg/dL (70-99); Osmolality,Calculated 284 (280-300); Potassium 3.9 mEq/L (3.5-4.5); Sodium 137 mEq/L (136-145); eGFR For African Americans > 60 (> 60); eGFR For Non-African Americans > 60 (> 60)
[2017-06-05] MEDS ORDERED: Levofloxacin 750 MG/150 ML 750 MG/150 ML BAG IVPB ONE (12:52)
--- NOTE | 2017-06-05 14:50 | Internal Med History&Physical ---
Date of Encounter: 06/05/17 Time of Encounter: 14:00 Assessment and Plan (1) Community acquired pneumonia Current visit: Yes Status: Acute -In the ER, patient was found to have leukocytosis (white blood cell count 19.1 ) with right mid and lower lobe opacities concerning for pneumonia on chest x- ray. -Will continue IV ceftriaxone and azithromycin started in the ER for CAP Qualifiers: Laterality: right Lung location: middle lobe of lung Qualified Code(s): J18.1 - Lobar pneumonia, unspecified organism (2) Acute and chronic respiratory failure Current visit: No Status: Acute -Secondary to the above. -Patient currently on 3 L of supplemental oxygen; she wears 3 L daily at bedtime and as needed during the daytime. -Will continue to monitor. Qualifiers: Respiratory failure complication: unspecified whether with hypoxia or hypercapnia Qualified Code(s): J96.20 - Acute and chronic respiratory failure , unspecified whether with hypoxia or hypercapnia (3) Acute exacerbation of chronic obstructive pulmonary disease (COPD) Current visit: Yes Status: Acute -Secondary to the above. -Will continue dual nebs and IV steroids. (4) Tobacco abuse Current visit: No Status: Chronic -Discussed with patient about smoking cessation and she would like to quit. -Nicotine replacement offered (nicotine patch). (5) Anxiety Current visit: No Status: Chronic -Continue home dose of BuSpar. (6) DVT prophylaxis Current visit: Yes Status: Acute -Subcutaneous heparin. Internal Medicine - H&P: HPI Chief complaint: Shortness of breath/cough Admitted From: Home Plans for Post Hospital Care: Home History of present illness: Patient is a 48-year-old female with past medical history significant for COPD ( oxygen dependent daily at bedtime-3L), smoker and generalized anxiety disorder who presents to the ER on 06/05/17 with shortness of breath. Patient reports a one-week history of shortness of breath, nonproductive cough and fever/chills (MAXIMUM TEMPERATURE 102). Patient was concerned and decided to come to the ER for evaluation. In the ER, patient was found to have leukocytosis (white blood cell count 19.1) with right mid and lower lobe opacities concerning for pneumonia on chest x-ray. Patient will be admitted to the medical surgical floor for community acquired pneumonia and COPD exacerbation. Past Med Surg Social Fam HX - Past Medical History Medical history: arthritis, COPD, GERD, hyperlipidemia, hypertension, osteoporosis, other Psychiatric history: anxiety, depression - Past Surgical History Surgical History: other - Social History Smoking Status: Current every day smoker Smokeless Tobacco Status: No Alcohol use: none Drug use: none - Family History Mother Living Status: Still Living Hx Family Cardiac Disorders: Yes (HTN) Hx Family Respiratory Disorders: No Hx Family Cancer: No Hx Family GI Disorders: No Hx Family Endocrine Disorder: No Hx Family Neuromuscular Disorders: No Hx Family Neurologic Disorders: No Hx Family HEENT Disorders: No Hx Family Autoimmune Disorders: No Father Living Status: Hx Family Cardiac Disorders: No Hx Family Respiratory Disorders: No Hx Family Cancer: No Hx Family GI Disorders: No Hx Family Endocrine Disorder: No Hx Family Neuromuscular Disorders: No Hx Family Neurologic Disorders: No Hx Family HEENT Disorders: No Hx Family Autoimmune Disorders: No Internal Medicine - H&P: Meds Albuterol Neb [Proventil Neb] 2.5 mg IH Q6H PRN 11/16/16 [History] Buspirone HCl [Buspar] 10 mg PO BID 11/16/16 [History] Gabapentin [Neurontin] 300 mg PO TID 11/16/16 [History] Oxygen 3 l NS HS 11/16/16 [History] GuaiFENesin ER [Mucinex] 600 mg PO BID #14 tbbp.12hr 11/17/16 [Rx] Ipratropium/Albuterol Neb [Duoneb] 3 ml IH TID #30 inhsol 11/17/16 [Rx] Naproxen [Naprosyn] 500 mg PO BID #30 tablet 01/11/17 [Rx] 3 Allergy/AdvReac Type Severity Reaction Status Date / Time No Known Allergies Allergy Verified 09/11/15 22:57 All Systems PM: A 10-system review of systems was performed and is negative for pertinent findings except as documented above in the HPI. - Constitutional Vitals: Temp Pulse Resp BP Pulse Ox 98.7 F 107 24 115/68 92 06/05/17 11:58 06/05/17 13:37 06/05/17 13:37 06/05/17 13:37 06/05/17 13:37 General appearance: Present: A&O X 3, no acute distress - Head Head exam: Present: normocephalic - Eye Eye exam: Present: normal appearance - ENT ENT exam: Present: mucous membranes dry - Respiratory Respiratory exam: Present: decreased breath sounds, wheezes - Cardiovascular Cardiovascular exam: Present: RRR, +S1, +S2. Absent: diastolic murmur, gallop, rubs, systolic murmur - GI/Abdominal GI/Abdominal exam: Present: normal bowel sounds, soft, no peritoneal signs. Absent: distended, tenderness - Extremities Exam Extremities exam: Absent: pedal edema - Neurological Exam Neurological exam: Present: oriented X3, no focal deficits - Psychiatric Psychiatric exam: Present: normal mood - Skin Skin exam: Present: normal color Internal Med - H&P Results - Labs CBC & Chem 7: 06/05/17 12:21 06/05/17 12:21
[2017-06-05] MEDS ORDERED: Naloxone 0.4 MG/ML INJ IVP PRN (15:22)
[2017-06-05] MEDS: Ipratropium/Albuterol Neb 3 ML IH SCH ×3 (15:56→23:15)
[2017-06-05] MEDS: methylPREDNISolone 125 MG/2 ML VIAL IVP SCH (23:19)
[2017-06-06] MEDS: Ipratropium/Albuterol Neb 3 ML IH SCH ×6 (03:55→23:06)
[2017-06-06 04:53] LABS: Basophils % 0.2 %; Hematocrit 39.3 % (35.3-44.9); Immature Granulocytes % 0.4 % (0-4); Lymphocytes # 0.9 K/mcL (0.6-4.6); Lymphocytes % 7.3 %; Mean Corpuscular HGB Conc 32.1 g/dL (31.6-35.5); Mean Corpuscular Hemoglobin 28.8 pg (28.0-33.3); Mean Corpuscular Volume 89.7 fL (83.0-100.0); Mean Platelet Volume 9.4 fL (9.4-12.4); Monocytes # 0.2 K/mcL (0.0-1.3); Monocytes % 1.9 %; Neutrophils # 10.6 K/mcL (1.6-8.9); Platelet Count 286 K/mcL (140-400); Red Blood Count 4.38 M/mcL (3.82-4.97); Red Cell Distribution Width 12.9 % (11.5-14.5); Segmented Neutrophils % 90.2 %
[2017-06-06 04:55] LABS: Hemoglobin 12.6 g/dL (11.5-15.4)
[2017-06-06 04:59] LABS: BUN/Creatinine Ratio 17 (6-26); Blood Urea Nitrogen 12 mg/dL (7-20); Calcium 9.7 mg/dL (8.6-10.8); Carbon Dioxide 29 mEq/L (19-29); Chloride 100 mEq/L (98-109); Glucose 174 mg/dL (70-99); Osmolality,Calculated 286 (280-300); Potassium 3.8 mEq/L (3.5-4.5); Sodium 136 mEq/L (136-145); eGFR For African Americans > 60 (> 60); eGFR For Non-African Americans > 60 (> 60)
[2017-06-06] MEDS: methylPREDNISolone 125 MG/2 ML VIAL IVP SCH (08:52)
[2017-06-06] MEDS: Levofloxacin 750 MG/150 ML 750 MG/150 ML BAG IVPB SCH (08:52)
[2017-06-06] MEDS: Nicotine 21 MG PATCH.TD24 TD SCH (08:53)
--- NOTE | 2017-06-06 10:36 | Internal Med Progress Note ---
Date of Encounter: 06/06/17 Time of Encounter: 08:45 - Assessment and plan (1) Community acquired pneumonia Current Visit: Yes Status: Acute Assessment and plan: Patient presented to the emergency department with shortness of breath for one week. She reports a nonproductive cough and fever/chills at home. She reports her MAXIMUM TEMPERATURE was 102. Chest x-ray in the ER was concerning for pneumonia, this right midlung and basilar pace of these slightly increased from prior exam, could represent a developing infiltrate. Initial CBC revealed white count of 19.1, has decreased 11.7. Patient is requiring additional supplemental oxygen above her normal baseline demand. She remains afebrile, she is not tachycardic or tachypneic. Patient has been mildly hypotensive, patient is frail and cachectic. We will continue to monitor. She was admitted and is being treated with Levaquin 750 mg IV daily, 60 mg of Solu-Medrol IV every 8 hours, DuoNeb's, as well as when necessary albuterol treatments and Mucinex. Continue O2, titrate as needed to maintain sats greater than 92%. Continue IV antibiotics, steroids Continue breathing treatments and Mucinex. Qualifiers: Laterality: right Lung location: middle lobe of lung Qualified Code(s): J18.1 - Lobar pneumonia, unspecified organism (2) Acute exacerbation of chronic obstructive pulmonary disease (COPD) Current Visit: Yes Status: Acute Assessment and plan: Patient with history of COPD. Lungs are clear and diminished throughout. She is also being treated for CAP. Plan as above (3) Tobacco abuse Current Visit: Yes Status: Chronic Assessment and plan: Patient reports smoking 1 pack per day. She is interested in a prescription for Chantix for home. Nicotine patches here. (4) Acute and chronic respiratory failure Current Visit: Yes Status: Acute Assessment and plan: Pt normally wears 3L 02 at bedtime, is requiring 4L /nc here. Will attempt to wean. Qualifiers: Respiratory failure complication: unspecified whether with hypoxia or hypercapnia Qualified Code(s): J96.20 - Acute and chronic respiratory failure , unspecified whether with hypoxia or hypercapnia (5) DVT prophylaxis Current Visit: Yes Status: Acute Assessment and plan: Lovenox SQ - Time Spent With Patient less than 15 minutes - Subjective Interval history: Patient was seen and assessed by thyroid 8:45 AM. Resting comfortably. She reports that she normally wears 3 L of oxygen at bedtime. She is currently requiring 4 to maintain her sats. She is agreeable with plan of care. She denies fever or chills. No headache, blurred vision neck pain, chest pain abdominal pain, nausea vomiting or diarrhea. She will be observed overnight given IV antibiotics, most likely discharge in the morning. - Constitutional Vitals: Temp Pulse Resp BP Pulse Ox 98.3 F 85 16 96/60 91 06/06/17 08:45 06/06/17 08:45 06/06/17 08:45 06/06/17 08:45 06/06/17 08:45 General appearance: Present: cooperative, A&O X 3, pleasant, no acute distress, answers questions appropriately - Head Head exam: Present: atraumatic, normal inspection, normocephalic - Eye Eye exam: Present: normal appearance, conjuntiva pink, sclera anicteric - Neck Neck exam general surgery: Present: supple, trachea midline. Absent: lymphadenopathy - Respiratory Respiratory exam: Present: decreased breath sounds, CTAB. Absent: accessory muscle use, chest wall tenderness, rales, respiratory distress, rhonchi, wheezes - Cardiovascular Cardiovascular exam: Present: RRR, +S1, +S2. Absent: diastolic murmur, gallop, rubs, systolic murmur - GI/Abdominal GI/Abdominal exam: Present: normal bowel sounds, soft, no peritoneal signs. Absent: distended, hepatomegaly, tenderness - Extremities Exam Extremities exam: Present: normal capillary refill, warm, radial pulses palpable and symmetrical. Absent: calf tenderness, cyanotic, pedal edema, tenderness - Neurological Exam Neurological exam: Present: alert, oriented X3, no focal deficits. Absent: facial droop, speech deficit - Skin Skin exam: Present: dry, intact, normal color, warm. Absent: rash Internal Medicine: Result - Labs CBC & Chem 7: 06/06/17 04:20 06/06/17 04:20 Labs: Short CBC 06/06/17 Range/Units 04:20 WBC 11.7 H (4.3-11.1) K/mcL Hgb 12.6 D (11.5-15.4) g/dL Hct 39.3 (35.3-44.9) % Plt Count 286 (140-400) K/mcL Neutrophils # 10.6 H (1.6-8.9) K/mcL BMP 06/06/17 04:20 Sodium 136 Potassium 3.8 Chloride 100 Carbon Dioxide 29 BUN 12 Creatinine 0.70 Glucose 174 H Calcium 9.7 Consult Discharge Plan - Plan Referrals: NONE,PCP [Primary Care Provider] -
[2017-06-06] MEDS ORDERED: Albuterol 2.5 MG/3 ML NEBULIZER IH PRN (10:40)
[2017-06-06] MEDS: Gabapentin 300 MG CAPSULE PO SCH ×2 (17:10→21:53)
[2017-06-06] MEDS: MethylPREDNISolone 40 MG/ML VIAL IVP SCH (17:11)
[2017-06-07] MEDS: Ipratropium/Albuterol Neb 3 ML IH SCH ×3 (03:45→11:28)
[2017-06-07 04:45] LABS: Basophils % 0.1 %; Hematocrit 38.1 % (35.3-44.9); Hemoglobin 12.2 g/dL (11.5-15.4); Immature Granulocytes % 0.6 % (0-4); Lymphocytes # 1.7 K/mcL (0.6-4.6); Lymphocytes % 8.1 %; Mean Corpuscular Hemoglobin 28.7 pg (28.0-33.3); Mean Corpuscular Volume 89.6 fL (83.0-100.0); Mean Platelet Volume 9.5 fL (9.4-12.4); Monocytes # 0.9 K/mcL (0.0-1.3); Monocytes % 4.2 %; Neutrophils # 18.6 K/mcL (1.6-8.9); Platelet Count 345 K/mcL (140-400); Red Blood Count 4.25 M/mcL (3.82-4.97)
[2017-06-07] MEDS: MethylPREDNISolone 40 MG/ML VIAL IVP SCH (06:11)
[2017-06-07] MEDS ORDERED: *HR* Enoxaparin 40 MG/0.4 ML SYRINGE SQ SCH (07:00)
[2017-06-07] MEDS: Nicotine 21 MG PATCH.TD24 TD SCH (08:00)
[2017-06-07] MEDS: Levofloxacin 750 MG/150 ML 750 MG/150 ML BAG IVPB SCH (08:01)
[2017-06-07] MEDS: Gabapentin 300 MG CAPSULE PO SCH (08:01)
--- NOTE | 2017-06-07 11:05 | Discharge Summary ---
Date of Encounter: 06/07/17 Time of Encounter: 10:20 - Discharge Diagnosis (1) Community acquired pneumonia Priority: Primary Status: Acute Comments: Patient presented to the emergency department with shortness of breath for one week. She reports a nonproductive cough and fever/chills at home. She reports her MAXIMUM TEMPERATURE was 102. Chest x-ray in the ER was concerning for pneumonia, this right midlung and basilar pace of these slightly increased from prior exam, could represent a developing infiltrate. Initial CBC revealed white count of 19.1, has decreased 11.7. Patient is requiring additional supplemental oxygen above her normal baseline demand. She remains afebrile, she is not tachycardic or tachypneic. Patient has been mildly hypotensive, patient is frail and cachectic. We will continue to monitor. She was admitted and is being treated with Levaquin 750 mg IV daily, 60 mg of Solu-Medrol IV every 8 hours, DuoNeb's, as well as when necessary albuterol treatments and Mucinex. Pt with mild leukocytosis, most likely due to steroid use. Pt has no fever, tachycardia, or hypotension. No signs of infection or sepsis. Lungs are diminished throughout with faint expiratory wheezing. Pt states that she feels better and is ready to go home. Pt has oxygen at home and denies needs for refills in medications at home. Pt will be sent home with prescriptions for Levaquin, Mucinex, Prednisone. Qualifiers: Laterality: right Lung location: middle lobe of lung Qualified Code(s): J18.1 - Lobar pneumonia, unspecified organism (2) Acute exacerbation of chronic obstructive pulmonary disease (COPD) Priority: Secondary Status: Acute Comments: Patient with history of COPD. Lungs are clear and diminished throughout. She is also being treated for CAP. (3) Tobacco abuse Priority: Secondary Status: Chronic Comments: Patient reports smoking 1 pack per day. She is interested in a prescription for Nicoderm patches for home. Nicotine patches here, as well. (4) Acute and chronic respiratory failure Priority: Secondary Status: Acute Comments: Pt normally wears 3L 02 at bedtime, was requiring 4L /nc here. Pt has been weaned to 1 liter. Qualifiers: Respiratory failure complication: unspecified whether with hypoxia or hypercapnia Qualified Code(s): J96.20 - Acute and chronic respiratory failure , unspecified whether with hypoxia or hypercapnia (5) DVT prophylaxis Priority: Secondary Status: Acute Comments: Pt on Coumadin. - Discharge Medications Prescriptions: GuaiFENesin ER [Mucinex] 600 mg PO BID #14 tbbp.12hr Levofloxacin [Levaquin] 750 mg PO DAILY #5 tablet Nicotine Patch [Nicoderm] 21 mg TD DAILY #30 patch.td24 predniSONE [PredniSONE] 10 mg PO DAILY #27 tablet Home Medications: Albuterol Neb [Proventil Neb] 2.5 mg IH Q6H PRN 11/16/16 [History] Buspirone HCl [Buspar] 10 mg PO BID 11/16/16 [History] Gabapentin [Neurontin] 300 mg PO TID 11/16/16 [History] Oxygen 3 l NS HS 11/16/16 [History] Ipratropium/Albuterol Neb [Duoneb] 3 ml IH TID #30 inhsol 11/17/16 [Rx] Naproxen [Naprosyn] 500 mg PO BID #30 tablet 01/11/17 [Rx] GuaiFENesin ER [Mucinex] 600 mg PO BID #14 tbbp.12hr 06/07/17 [Rx] Levofloxacin [Levaquin] 750 mg PO DAILY #5 tablet 06/07/17 [Rx] Nicotine Patch [Nicoderm] 21 mg TD DAILY #30 patch.td24 06/07/17 [Rx] predniSONE [PredniSONE] 10 mg PO DAILY #27 tablet 06/07/17 [Rx] Allergies/Adverse Reactions: 3 Allergy/AdvReac Type Severity Reaction Status Date / Time No Known Allergies Allergy Verified 09/11/15 22:57 Date of admission: 06/05/17 13:08 Primary care physician: PCP NONE Discharging clinician: Veronica Harris Anticipated date of discharge: 06/07/17 - Patient Status Disposition: Home, Self-Care Condition: Good Functional capacity at discharge: independent ambulation Overall status at discharge: patient is progressing back to baseline - Discharge Instructions Follow Up With: NONE,PCP [Primary Care Provider] - Additional Instructions: Follow-up with primary care in the next 7-10 days for follow-up visit. Take medications as directed. Wear oxygen as needed. Return to the emergency department as needed for any other problems or concerns , or if your symptoms return or worsen. Return to home medications and activities as tolerated. - Diet and Activity Activity: increase activity as tolerated Diet: advance to your usual diet Hospital course: Ms. Bush is a 56 year old female with past medical history of COPD, intractable neuropathic pain, osteoporosis, osteoarthritis, tobacco abuse, depression and anxiety, chronic respiratory failure. She has been seen here for community- acquired pneumonia and acute on chronic respiratory failure, acute exacerbation of COPD. She has improved and states that she feels well enough to go home. She is going to be sent home with antibiotics, by mouth steroid taper, Mucinex, and she has expressed an interest to stop smoking and has requested a prescription for nicotine patches. Please see assessment and plan for remainder of hospital course. Time spent discussing smoking cessation with patient: 3 to 10 minutes - Time Spent with Patient Total time spent providing and/or coordinating discharge services: Less than 30 minutes - Constitutional Vitals: Temp Pulse Resp BP Pulse Ox 98.0 F 68 15 105/66 94 06/07/17 06:51 06/07/17 06:51 06/07/17 06:51 06/07/17 06:51 06/07/17 06:51 General appearance: Present: cooperative, A&O X 3, pleasant, no acute distress, answers questions appropriately - Head Head exam: Present: atraumatic, normal inspection, normocephalic - Eye Eye exam: Present: normal appearance, conjuntiva pink, sclera anicteric - Neck Neck exam general surgery: Present: supple, trachea midline. Absent: lymphadenopathy - Respiratory Respiratory exam: Present: CTAB. Absent: accessory muscle use, chest wall tenderness, rales, respiratory distress, rhonchi, wheezes - Cardiovascular Cardiovascular exam: Present: RRR, +S1, +S2. Absent: diastolic murmur, gallop, rubs, systolic murmur - GI/Abdominal GI/Abdominal exam: Present: normal bowel sounds, soft, no peritoneal signs. Absent: distended, hepatomegaly, tenderness - Extremities Exam Extremities exam: Present: normal capillary refill, warm, radial pulses palpable and symmetrical. Absent: calf tenderness, cyanotic, pedal edema - Neurological Exam Neurological exam: Present: alert, oriented X3, no focal deficits. Absent: facial droop, speech deficit - Skin Skin exam: Present: dry, intact, normal color, warm. Absent: rash
[2017-06-07 11:16] VITALS: BP 134/75
--- NOTE | 2017-06-07 14:47 | Electrocardiograph Report ---
[address] [address] Test Date: 2017-06-05 Pat Name: Yamilet Bush Department: 104 Room: 3B13 Gender: F Base Manager: : 1960 Requested By: Aravind Chavez Order Number: [id number] Reading MD: Wale Blanc Measurements Intervals [place] Rate: 114 P: 72 HI: 144 QRS: -57 QRSD: 91 T: 88 QT: 320 QTc: 387 Interpretive Statements SINUS TACHYCARDIA ARTIFACT LIMITS INTERPRETATION Electronically Signed On 06-07-2017 14:45:21 EST by Wale Blanc
== END 2017-06-07 12:33 | disposition home or self-care (01) ==
LOC: 3BNU 11:55 → EMEROO 11:55 → 3BNU 14:35
PROVIDERS: ADMIT Hospitalist; ATTEND Registered Nurse

== ENCOUNTER 2017-08-07 12:52 | Observation (INO) ==
--- NOTE | 2017-08-07 13:15 | Emergency Department Note ---
Disposition Clinical Impression: Shortness of breath, History of COPD Chest pain Qualifiers: Chest pain type: unspecified Qualified Code(s): R07.9 - Chest pain, unspecified Disposition: Admitted As Inpatient Condition: Good Referrals: NONE,PCP [Primary Care Provider] - Forms: ED Satisfaction Letter Time of Disposition: 15:38 General Adult HPI - General Chief complaint: ED Chest Pain Stated complaint: chest pain Time Seen by Provider: 08/07/17 12:58 Source: patient, EMS Mode of arrival: EMS Limitations: no limitations Nursing Notes Reviewed: Yes Vital Signs Reviewed: Yes - History of Present Illness HPI Narrative: Patient is a 56-year-old female that presents to the emergency Department for chest pain. She states that it began approximately 30 minutes prior to arrival. Patient states is left-sided chest pain that does not radiate. She describes the pain as a 10 out of 10 and sharp. Patient states that she has some associated worsening of her shortness of breath. There is no reported nausea or diaphoresis. EMS states that they gave her 4 baby aspirin in route. No nitroglycerin has been given. Patient denies any history of cardiac-related disease but does state that she has a history of COPD. She states that she wears 2 L of oxygen at home. Pain Scale: 9 - Related Data Home Medications Medication Instructions Recorded Confirmed Albuterol Neb [Proventil Neb] 2.5 mg IH Q6H PRN 11/16/16 06/05/17 Buspirone HCl [Buspar] 10 mg PO BID 11/16/16 06/05/17 Gabapentin [Neurontin] 300 mg PO TID 11/16/16 06/05/17 Oxygen 3 l NS HS 11/16/16 06/05/17 Previous Rx's Medication Instructions Recorded Ipratropium/Albuterol Neb [Duoneb] 3 ml IH TID #30 inhsol 11/17/16 Naproxen [Naprosyn] 500 mg PO BID #30 tablet 01/11/17 GuaiFENesin ER [Mucinex] 600 mg PO BID #14 tbbp.12hr 06/07/17 Levofloxacin [Levaquin] 750 mg PO DAILY #5 tablet 06/07/17 Nicotine Patch [Nicoderm] 21 mg TD DAILY #30 patch.td24 06/07/17 predniSONE [PredniSONE] 10 mg PO DAILY #27 tablet 06/07/17 Allergies Allergy/AdvReac Type Severity Reaction Status Date / Time No Known Allergies Allergy Verified 09/11/15 22:57 All systems ED: reviewed and negative except as stated. 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 - Social History Smoking Status: Current every day smoker Smokeless Tobacco Status: No Alcohol use: Reports: none Drug use: Reports: none Physical Exam - General Limitations: no limitations General appearance: alert, in no apparent distress - Head Head exam: atraumatic, normocephalic - Eye Eye exam: Present: normal appearance, EOMI - Neck Neck exam: Present: normal inspection, full ROM, trachea midline - Respiratory Respiratory exam: Present: wheezes (Mild bilateral wheezes) - Cardiovascular Cardiovascular exam: Present: regular rate, normal rhythm, normal heart sounds, +S1, +S2 - Abdominal Exam Abdominal exam: Present: soft, Non-Tender, normal bowel sounds - Neurological Exam Neurological exam: Present: alert, oriented X3 - Psychiatric Psychiatric exam: Present: normal affect, normal mood - Skin Skin exam: Present: warm, dry, intact Course Vital Signs Temperature 98.1 F 08/07/17 12:54 Pulse Rate 64 08/07/17 12:54 Respiratory Rate 20 08/07/17 12:54 Blood Pressure 151/104 08/07/17 12:54 O2 Sat by Pulse Oximetry 95 08/07/17 12:54 Temperature 98.1 F 08/07/17 12:54 Pulse Rate 53 08/07/17 14:43 Respiratory Rate 16 08/07/17 14:43 Blood Pressure 154/116 08/07/17 14:43 O2 Sat by Pulse Oximetry 99 08/07/17 14:43 Oxygen Delivery Oxygen Delivery Nasal Cannula Medical Decision Making - MDM Narrative Medical decision making narrative: Due to the patient presenting with left-sided chest pain and shortness of breath we will work this patient up for inserted for possible cardiac cause versus pulmonary cause. Patient will obtain a CBC, CMP, troponin, chest x-ray EKG and a d-dimer. The patient's troponin was negative, BNP was negative but the patient had an elevated d-dimer. We will obtain a CT of the chest to rule out possible pulmonary embolus. The patient's chest x-ray showed no superimposed acute process over the underlying chronic issues. CT of the chest did not show any evidence of acute pulmonary embolus. The remainder of the patient's laboratory testing was unremarkable. Patient will be admitted to the hospital for further evaluation management. I called and spoke the hospitalist and they have accepted the patient to their service. The patient be admitted to the hospital at this time. - Lab Data Lab results reviewed: Yes I reviewed the patient's lab results. Result diagrams: 08/07/17 13:05 08/07/17 13:05 Lab Results 08/07/17 08/07/17 08/07/17 Range/Units 13:05 13:05 13:05 WBC 8.5 (4.3-11.1) K/mcL RBC 4.98 H (3.82-4.97) M/mcL Hgb 14.4 (11.5-15.4) g/dL Hct 44.0 (35.3-44.9) % MCV 88.4 (83.0-100.0) fL MCH 28.9 (28.0-33.3) pg MCHC 32.7 (31.6-35.5) g/dL RDW 13.6 (11.5-14.5) % Plt Count 295 (140-400) K/mcL MPV 9.1 L (9.4-12.4) fL Immature Gran % 0.2 (0-4) % Seg Neutrophils % 50.6 % Lymphocytes % 40.0 % Monocytes % 6.5 % Eosinophils % 2.0 % Basophils % 0.7 % Neutrophils # 4.3 (1.6-8.9) K/mcL Lymphocytes # 3.4 (0.6-4.6) K/mcL Monocytes # 0.6 (0.0-1.3) K/mcL Eosinophils # 0.2 (0.0-0.6) K/mcL Basophils # 0.1 (0.0-0.2) K/mcL PT 11.1 (9.4-12.1) Seconds INR 1.0 APTT 36.8 H (26.0-36.0) Seconds D-Dimer 1376 H (0-500) ng/mLFEU Sodium (136-145) mEq/L Potassium (3.5-5.1) mEq/L Chloride (98-107) mEq/L Carbon Dioxide (23-29) mEq/L BUN (6-20) mg/dL Creatinine (0.60-1.20) mg/dL Est GFR ( Amer) (> 60) Est GFR (Non-Af Amer) (> 60) BUN/Creatinine Ratio (6-26) Glucose (70-105) mg/dL Calculated Osmolality (280-300) Calcium (8.6-10.3) mg/dL Troponin I (< 0.04) ng/mL B-Natriuretic Peptide 53 (Less than 100) pg/mL 08/07/17 08/07/17 Range/Units 13:05 13:05 WBC (4.3-11.1) K/mcL RBC (3.82-4.97) M/mcL Hgb (11.5-15.4) g/dL Hct (35.3-44.9) % MCV (83.0-100.0) fL MCH (28.0-33.3) pg MCHC (31.6-35.5) g/dL RDW (11.5-14.5) % Plt Count (140-400) K/mcL MPV (9.4-12.4) fL Immature Gran % (0-4) % Seg Neutrophils % % Lymphocytes % % Monocytes % % Eosinophils % % Basophils % % Neutrophils # (1.6-8.9) K/mcL Lymphocytes # (0.6-4.6) K/mcL Monocytes # (0.0-1.3) K/mcL Eosinophils # (0.0-0.6) K/mcL Basophils # (0.0-0.2) K/mcL PT (9.4-12.1) Seconds INR APTT (26.0-36.0) Seconds D-Dimer (0-500) ng/mLFEU Sodium 135 L (136-145) mEq/L Potassium 4.1 (3.5-5.1) mEq/L Chloride 101 (98-107) mEq/L Carbon Dioxide 30 H (23-29) mEq/L BUN 13 (6-20) mg/dL Creatinine 0.75 (0.60-1.20) mg/dL Est GFR ( Amer) > 60 (> 60) Est GFR (Non-Af Amer) > 60 (> 60) BUN/Creatinine Ratio 17 (6-26) Glucose 97 (70-105) mg/dL Calculated Osmolality 280 (280-300) Calcium 9.3 (8.6-10.3) mg/dL Troponin I < 0.03 (< 0.04) ng/mL B-Natriuretic Peptide (Less than 100) pg/mL - Radiology Data Radiology results reviewed: Yes I reviewed the patient's radiology results. Chest X-Ray 08/07/17 12:58 IMPRESSION: 1. Stable bibasilar scarring/fibrosis. 2. Stable blunting of the bilateral costophrenic angles, may indicate pleural scarring or chronic trace pleural effusions. 3. No superimposed acute process or significant interval change. D/ / 08/07/2017 13:49:52 Obey Jasmine MD / saurabh Interpreting Provider: Obey Jasmine MD Chest CTA 08/07/17 13:52 IMPRESSION: No evidence of pulmonary embolism or acute pulmonary abnormality. Minimal dependent bibasilar atelectasis/scarring. D/ / Amanuel Meade MD / Amanuel Meade MD Interpreting Provider: Amanuel Meade MD - EKG Data EKG #1 EKG attestation: Yes I reviewed and interpreted this EKG. EKG results narrative: EKG showed sinus rhythm at a rate of 64 bpm, [place] interval of 151, respiration of 86, QTC of 400 with a normal axis. No STEMI is noted on this EKG. This is compared to previous EKG on 06/05/17 which showed a sinus tachycardia at a rate of 114 beats per minute.
--- NOTE | 2017-08-07 13:16 | Emergency Department Note ---
Disposition Clinical Impression: Chest pain, Shortness of breath, History of COPD Disposition: Admitted As Inpatient Condition: Good Referrals: NONE,PCP [Primary Care Provider] - Forms: ED Satisfaction Letter General Adult HPI - General Chief complaint: ED Chest Pain Stated complaint: chest pain Time Seen by Provider: 08/07/17 12:58 Source: patient, EMS Mode of arrival: EMS Limitations: no limitations Nursing Notes Reviewed: Yes Vital Signs Reviewed: Yes - History of Present Illness Pain Scale: 9 - Related Data Home Medications Medication Instructions Recorded Confirmed Albuterol Neb [Proventil Neb] 2.5 mg IH Q6H PRN 11/16/16 06/05/17 Buspirone HCl [Buspar] 10 mg PO BID 11/16/16 06/05/17 Gabapentin [Neurontin] 300 mg PO TID 11/16/16 06/05/17 Oxygen 3 l NS HS 11/16/16 06/05/17 Previous Rx's Medication Instructions Recorded Ipratropium/Albuterol Neb [Duoneb] 3 ml IH TID #30 inhsol 11/17/16 Naproxen [Naprosyn] 500 mg PO BID #30 tablet 01/11/17 GuaiFENesin ER [Mucinex] 600 mg PO BID #14 tbbp.12hr 06/07/17 Levofloxacin [Levaquin] 750 mg PO DAILY #5 tablet 06/07/17 Nicotine Patch [Nicoderm] 21 mg TD DAILY #30 patch.td24 06/07/17 predniSONE [PredniSONE] 10 mg PO DAILY #27 tablet 06/07/17 Allergies Allergy/AdvReac Type Severity Reaction Status Date / Time No Known Allergies Allergy Verified 09/11/15 22:57 Past Medical History - Past Medical History Medical history: Reports: arthritis, COPD, GERD, hyperlipidemia, hypertension, osteoporosis, other Surgical history: Reports: other Psychiatric history: Reports: anxiety, depression 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 - Social History Smoking Status: Current every day smoker Smokeless Tobacco Status: No Alcohol use: Reports: none Drug use: Reports: none Physical Exam - General Limitations: no limitations General appearance: alert Course Vital Signs Temperature 98.1 F 08/07/17 12:54 Pulse Rate 64 08/07/17 12:54 Respiratory Rate 20 08/07/17 12:54 Blood Pressure 151/104 08/07/17 12:54 O2 Sat by Pulse Oximetry 95 08/07/17 12:54 Temperature 98.1 F 08/07/17 12:54 Pulse Rate 64 08/07/17 15:31 Respiratory Rate 16 08/07/17 15:31 Blood Pressure 150/76 08/07/17 15:31 O2 Sat by Pulse Oximetry 96 08/07/17 15:31 Oxygen Delivery Oxygen Delivery Nasal Cannula Medical Decision Making - MDM Narrative Medical decision making narrative: This documentation is done with the assistance of Dragon dictation. Despite efforts made to ensure accuracy, there may be inaccuracies in embossing machine tender or spelling and typographical errors. I examined this patient and my medical decision-making was reviewed with the Resident Physician. I agree with the documented findings, disposition and treatment plan as described except to the extent set forth below. Patient presents today with seen by Dr. Brady and myself, Kendall's evaluation and management plan, supervise care the patient's stay. Patient presented with chest pain today. She has chronic risk factors but no history of cardiac disease. She had baby aspirin prior to arrival she is getting nitroglycerin trial and labs here. Most likely she will need admission. She is in agreement with plan. Chest X-Ray 08/07/17 12:58 IMPRESSION: 1. Stable bibasilar scarring/fibrosis 2. Stable blunting of the bilateral costophrenic angles, may indicate pleural scarring or chronic trace pleural effusions 3. No superimposed acute process or significant interval change D/ / Obey Jasmine MD / Obey Jasmine MD Interpreting Provider: Obey Jasmine MD 1352 hrs.: D-dimer is elevated so do a CTA of her chest. She is getting her nitroglycerin trial this time. 1414 hrs.: Patient did not have relief with 2 nitroglycerin. She refused a third. We will give her something for pain. She is getting a CTA to rule out PE. Chest X-Ray 08/07/17 12:58 IMPRESSION: 1. Stable bibasilar scarring/fibrosis. 2. Stable blunting of the bilateral costophrenic angles, may indicate pleural scarring or chronic trace pleural effusions. 3. No superimposed acute process or significant interval change. D/ / 08/07/2017 13:49:52 Obey Jasmine MD / saurabh Interpreting Provider: Obey Jasmine MD Chest CTA 08/07/17 13:52 IMPRESSION: No evidence of pulmonary embolism or acute pulmonary abnormality. Minimal dependent bibasilar atelectasis/scarring. D/ / Amanuel Meade MD / Amanuel Meade MD Interpreting Provider: Amanuel Meade MD 1530 hrs.: CTA is negative. We will bring her in for chest pain rule out ACS. She is in agreement with plan. - Lab Data Result diagrams: 08/07/17 13:05 08/07/17 13:05 Lab Results 08/07/17 08/07/17 08/07/17 Range/Units 13:05 13:05 13:05 WBC 8.5 (4.3-11.1) K/mcL RBC 4.98 H (3.82-4.97) M/mcL Hgb 14.4 (11.5-15.4) g/dL Hct 44.0 (35.3-44.9) % MCV 88.4 (83.0-100.0) fL MCH 28.9 (28.0-33.3) pg MCHC 32.7 (31.6-35.5) g/dL RDW 13.6 (11.5-14.5) % Plt Count 295 (140-400) K/mcL MPV 9.1 L (9.4-12.4) fL Immature Gran % 0.2 (0-4) % Seg Neutrophils % 50.6 % Lymphocytes % 40.0 % Monocytes % 6.5 % Eosinophils % 2.0 % Basophils % 0.7 % Neutrophils # 4.3 (1.6-8.9) K/mcL Lymphocytes # 3.4 (0.6-4.6) K/mcL Monocytes # 0.6 (0.0-1.3) K/mcL Eosinophils # 0.2 (0.0-0.6) K/mcL Basophils # 0.1 (0.0-0.2) K/mcL PT 11.1 (9.4-12.1) Seconds INR 1.0 APTT 36.8 H (26.0-36.0) Seconds D-Dimer 1376 H (0-500) ng/mLFEU Sodium (136-145) mEq/L Potassium (3.5-5.1) mEq/L Chloride (98-107) mEq/L Carbon Dioxide (23-29) mEq/L BUN (6-20) mg/dL Creatinine (0.60-1.20) mg/dL Est GFR ( Amer) (> 60) Est GFR (Non-Af Amer) (> 60) BUN/Creatinine Ratio (6-26) Glucose (70-105) mg/dL Calculated Osmolality (280-300) Calcium (8.6-10.3) mg/dL Troponin I (< 0.04) ng/mL B-Natriuretic Peptide 53 (Less than 100) pg/mL 08/07/17 08/07/17 Range/Units 13:05 13:05 WBC (4.3-11.1) K/mcL RBC (3.82-4.97) M/mcL Hgb (11.5-15.4) g/dL Hct (35.3-44.9) % MCV (83.0-100.0) fL MCH (28.0-33.3) pg MCHC (31.6-35.5) g/dL RDW (11.5-14.5) % Plt Count (140-400) K/mcL MPV (9.4-12.4) fL Immature Gran % (0-4) % Seg Neutrophils % % Lymphocytes % % Monocytes % % Eosinophils % % Basophils % % Neutrophils # (1.6-8.9) K/mcL Lymphocytes # (0.6-4.6) K/mcL Monocytes # (0.0-1.3) K/mcL Eosinophils # (0.0-0.6) K/mcL Basophils # (0.0-0.2) K/mcL PT (9.4-12.1) Seconds INR APTT (26.0-36.0) Seconds D-Dimer (0-500) ng/mLFEU Sodium 135 L (136-145) mEq/L Potassium 4.1 (3.5-5.1) mEq/L Chloride 101 (98-107) mEq/L Carbon Dioxide 30 H (23-29) mEq/L BUN 13 (6-20) mg/dL Creatinine 0.75 (0.60-1.20) mg/dL Est GFR ( Amer) > 60 (> 60) Est GFR (Non-Af Amer) > 60 (> 60) BUN/Creatinine Ratio 17 (6-26) Glucose 97 (70-105) mg/dL Calculated Osmolality 280 (280-300) Calcium 9.3 (8.6-10.3) mg/dL Troponin I < 0.03 (< 0.04) ng/mL B-Natriuretic Peptide (Less than 100) pg/mL
[2017-08-07 13:20] LABS: Basophils # 0.1 K/mcL (0.0-0.2); Basophils % 0.7 %; Eosinophils # 0.2 K/mcL (0.0-0.6); Hemoglobin 14.4 g/dL (11.5-15.4); Immature Granulocytes % 0.2 % (0-4); Lymphocytes # 3.4 K/mcL (0.6-4.6); Mean Corpuscular HGB Conc 32.7 g/dL (31.6-35.5); Mean Corpuscular Hemoglobin 28.9 pg (28.0-33.3); Mean Corpuscular Volume 88.4 fL (83.0-100.0); Mean Platelet Volume 9.1 fL (9.4-12.4); Monocytes # 0.6 K/mcL (0.0-1.3); Monocytes % 6.5 %; Neutrophils # 4.3 K/mcL (1.6-8.9); Platelet Count 295 K/mcL (140-400); Red Blood Count 4.98 M/mcL (3.82-4.97); Red Cell Distribution Width 13.6 % (11.5-14.5); Segmented Neutrophils % 50.6 %
[2017-08-07 13:25] LABS: Prothrombin Time 11.1 Seconds (9.4-12.1)
[2017-08-07 13:28] LABS: Activated Partial Thrombo Time 36.8 Seconds (26.0-36.0)
[2017-08-07 13:37] LABS: BUN/Creatinine Ratio 17 (6-26); Blood Urea Nitrogen 13 mg/dL (6-20); Calcium 9.3 mg/dL (8.6-10.3); Carbon Dioxide 30 mEq/L (23-29); Chloride 101 mEq/L (98-107); Glucose 97 mg/dL (70-105); Osmolality,Calculated 280 (280-300); Potassium 4.1 mEq/L (3.5-5.1); Sodium 135 mEq/L (136-145); eGFR For African Americans > 60 (> 60); eGFR For Non-African Americans > 60 (> 60)
[2017-08-07] MEDS ORDERED: 0.9 % Sodium Chloride 1,000 ML IVC ONE (13:53)
[2017-08-07] MEDS: Nitroglycerin 0.4 MG TAB.SUBL SL PRN ×2 (13:59→14:05)
[2017-08-07] MEDS ORDERED: *HR* FentaNYL (PF) 100 MCG/2 ML VIAL IVP ONE (14:14)
--- NOTE | 2017-08-07 15:58 | Internal Med History&Physical ---
Date of Encounter: 08/07/17 Time of Encounter: 15:53 Assessment and Plan (1) Chest pain Current visit: Yes Status: Acute Her chest pain patient will risk factors of hypertension high cholesterol smoking history EKG is unremarkable troponin so far is negative we will admit and trend troponin will likely need an outpatient nuclear stress test if negative Qualifiers: Chest pain type: unspecified Qualified Code(s): R07.9 - Chest pain, unspecified (2) COPD (chronic obstructive pulmonary disease) Current visit: No Status: Chronic COPD on 3 L oxygen dependent patient is wheezing on exam we will place on DuoNeb scheduled and when necessary Qualifiers: COPD type: unspecified COPD Qualified Code(s): J44.9 - Chronic obstructive pulmonary disease, unspecified (3) Depression Current visit: No Status: Chronic Chronic resume home medication Qualifiers: Depression Type: unspecified Qualified Code(s): F32.9 - Major depressive disorder, single episode, unspecified (4) Osteoporosis Current visit: No Status: Chronic Chronic resume home medication Qualifiers: Osteoporosis type: age-related Presence of current pathological fracture: unspecified Qualified Code(s): M81.0 - Age-related osteoporosis without current pathological fracture (5) Tobacco abuse Current visit: No Status: Chronic Chronic we will place some nicotine patch Internal Medicine - H&P: HPI Chief complaint: chest pain Admitted From: Emergency Dept Plans for Post Hospital Care: Home History of present illness: Ms. Bush is a 56 year old female Patient with history of COPD, untreated of oxygen on home smoking history, high cholesterol, hypertension, osteoporosis, anxiety and depression. Patient presented emergency room with acute onset of chest pain describes as sharp pain no radiation with some shortness of breath denies any nausea Began about 30 minutes prior to arrival to the emergency room. given 4 aspirin some nitroglycerin chest pain has subsided but not resolved. Patient being admitted for rule out protocol and further evaluation. EKG is unremarkable Past Med Surg Social Fam HX - Past Medical History Medical history: arthritis, COPD, GERD, hyperlipidemia, hypertension, osteoporosis, other Psychiatric history: anxiety, depression - Past Surgical History Surgical History: other - Social History Smoking Status: Current every day smoker Smokeless Tobacco Status: No Alcohol use: none Drug use: none - Family History Mother Living Status: Still Living Hx Family Cardiac Disorders: Yes (HTN) Hx Family Respiratory Disorders: No Hx Family Cancer: No Hx Family GI Disorders: No Hx Family Endocrine Disorder: No Hx Family Neuromuscular Disorders: No Hx Family Neurologic Disorders: No Hx Family HEENT Disorders: No Hx Family Autoimmune Disorders: No Father Living Status: Hx Family Cardiac Disorders: No Hx Family Respiratory Disorders: No Hx Family Cancer: No Hx Family GI Disorders: No Hx Family Endocrine Disorder: No Hx Family Neuromuscular Disorders: No Hx Family Neurologic Disorders: No Hx Family HEENT Disorders: No Hx Family Autoimmune Disorders: No Internal Medicine - H&P: Meds Albuterol Neb [Proventil Neb] 2.5 mg IH Q6H PRN 11/16/16 [History] Buspirone HCl [Buspar] 10 mg PO BID 11/16/16 [History] Gabapentin [Neurontin] 300 mg PO TID 11/16/16 [History] Oxygen 3 l NS HS 11/16/16 [History] Ipratropium/Albuterol Neb [Duoneb] 3 ml IH TID #30 inhsol 11/17/16 [Rx] Naproxen [Naprosyn] 500 mg PO BID #30 tablet 01/11/17 [Rx] GuaiFENesin ER [Mucinex] 600 mg PO BID #14 tbbp.12hr 06/07/17 [Rx] Levofloxacin [Levaquin] 750 mg PO DAILY #5 tablet 06/07/17 [Rx] Nicotine Patch [Nicoderm] 21 mg TD DAILY #30 patch.td24 06/07/17 [Rx] predniSONE [PredniSONE] 10 mg PO DAILY #27 tablet 06/07/17 [Rx] 3 Allergy/AdvReac Type Severity Reaction Status Date / Time No Known Allergies Allergy Verified 09/11/15 22:57 All Systems PM: A 10-system review of systems was performed and is negative for pertinent findings except as documented above in the HPI. - Constitutional Constitutional: no chills, no fever(s), no night sweats - EENT Eyes: no change in vision, no discharge, no pain, no photophobia Ears: no ear discharge, no ear pain, no tinnitus Nose, mouth and throat: no dysphagia, no nasal discharge, no neck pain, no sore throat - Cardiovascular Cardiovascular ROS IM: chest pain, dyspnea, dyspnea on exertion - Respiratory Respiratory: dyspnea on exertion - Gastrointestinal Gastrointestinal: no abdominal pain, no diarrhea, no hematemesis, no hematochezia, no melena, no nausea, no vomiting - Genitourinary Genitourinary: no change in urinary stream, no dysuria, no flank pain, no hematuria - Constitutional Vitals: Temp Pulse Resp BP Pulse Ox 98.1 F 64 16 150/76 96 08/07/17 12:54 08/07/17 15:31 08/07/17 15:31 08/07/17 15:31 08/07/17 15:31 General appearance: Present: A&O X 3 - Eye Eye exam: Present: PERRL, conjuntiva pink, sclera anicteric Pupils: Present: PERRL - Neck Neck exam general surgery: Present: supple, trachea midline. Absent: lymphadenopathy - Respiratory Respiratory exam: Present: prolonged expiratory phase, wheezes - Cardiovascular Cardiovascular exam: Present: RRR, +S1, +S2. Absent: diastolic murmur, gallop, rubs, systolic murmur - GI/Abdominal GI/Abdominal exam: Present: normal bowel sounds, soft, no peritoneal signs. Absent: distended, tenderness - Extremities Exam Extremities exam: Present: warm, radial pulses palpable and symmetrical. Absent : calf tenderness, cyanotic, pedal edema Internal Med - H&P Results - Labs CBC & Chem 7: 08/07/17 13:05 08/07/17 13:05 Labs: Short CBC 08/07/17 Range/Units 13:05 WBC 8.5 (4.3-11.1) K/mcL Hgb 14.4 (11.5-15.4) g/dL Hct 44.0 (35.3-44.9) % Plt Count 295 (140-400) K/mcL Neutrophils # 4.3 (1.6-8.9) K/mcL BMP 08/07/17 13:05 Sodium 135 L Potassium 4.1 Chloride 101 Carbon Dioxide 30 H BUN 13 Creatinine 0.75 Glucose 97 Calcium 9.3 Cardiac Enzymes 08/07/17 Range/Units 13:05 Troponin I < 0.03 (< 0.04) ng/mL - Impressions ITS Impressions Chest X-Ray 08/07/17 12:58 IMPRESSION: 1. Stable bibasilar scarring/fibrosis. 2. Stable blunting of the bilateral costophrenic angles, may indicate pleural scarring or chronic trace pleural effusions. 3. No superimposed acute process or significant interval change. D/ / 08/07/2017 13:49:52 Obey Jasmine MD / saurabh Interpreting Provider: Obey Jasmine MD Chest CTA 08/07/17 13:52 IMPRESSION: No evidence of pulmonary embolism or acute pulmonary abnormality. Minimal dependent bibasilar atelectasis/scarring. D/ / Amanuel Meade MD / Amanuel Meade MD Interpreting Provider: Amanuel Meade MD
[2017-08-07] MEDS ORDERED: traMADol 50 MG TABLET PO PRN (16:03)
[2017-08-07] MEDS ORDERED: Naloxone 0.4 MG/ML INJ IVP PRN (16:03)
[2017-08-07] MEDS ORDERED: Ipratropium/Albuterol Neb 3 ML IH PRN (16:07)
[2017-08-07] MEDS: 0.9 % Sodium Chloride 1,000 ML IVC SCH (16:35)
[2017-08-07] MEDS: Acetaminophen 325 MG TABLET PO PRN (20:17)
[2017-08-07] MEDS: Gabapentin 300 MG CAPSULE PO SCH (20:17)
[2017-08-07] MEDS: Ipratropium/Albuterol Neb 3 ML IH SCH (20:38)
[2017-08-07] MEDS ORDERED: NON-FORMULARY MEDICATION 1 EACH EACH (Oxygen [Oxygen] 3 L) NS SCH (21:00)
[2017-08-08] MEDS: Ipratropium/Albuterol Neb 3 ML IH SCH ×7 (04:48→23:49)
[2017-08-08 05:07] LABS: Alanine Aminotransferase 5 Units/L (7-52); Albumin 3.1 g/dL (3.5-5.7); Albumin/Globulin Ratio 1.4 (1.1-2.2); Alkaline Phosphatase 63 Units/L (34-104); Aspartate Amino Transferase 8 Units/L (13-39); BUN/Creatinine Ratio 17 (6-26); Bilirubin,Total 0.2 mg/dL (0.3-1.0); Blood Urea Nitrogen 12 mg/dL (6-20); Carbon Dioxide 26 mEq/L (23-29); Chloride 112 mEq/L (98-107); Chol/HDL Ratio 3.1 (0-4.9); Cholesterol 121 mg/dL (< 200); Globulin 2.2 g/dL (2.4-3.5); Glucose 99 mg/dL (70-105); HDL Cholesterol 39 mg/dL (40-59); LDL Cholesterol,Calculated 60 mg/dL (0-99); Magnesium 2.3 mg/dL (1.6-2.6); Osmolality,Calculated 290 (280-300); Potassium 3.8 mEq/L (3.5-5.1); Sodium 140 mEq/L (136-145); Total Protein 5.3 g/dL (6.4-8.9); Triglycerides 111 mg/dL (< 150); eGFR For African Americans > 60 (> 60); eGFR For Non-African Americans > 60 (> 60)
[2017-08-08] MEDS: Nitroglycerin 0.4 MG TAB.SUBL SL PRN (06:12)
[2017-08-08] MEDS: 0.9 % Sodium Chloride 1,000 ML IVC SCH (06:33)
[2017-08-08] MEDS: Acetaminophen 325 MG TABLET PO PRN (06:46)
[2017-08-08] MEDS: predniSONE 10 MG TABLET PO SCH (09:30)
[2017-08-08] MEDS: Gabapentin 300 MG CAPSULE PO SCH ×3 (09:31→19:52)
[2017-08-08] MEDS: *HR* FentaNYL (PF) 100 MCG/2 ML VIAL IVP PRN ×5 (09:31→22:22)
[2017-08-08] MEDS: Nicotine 21 MG PATCH.TD24 TD SCH (09:31)
--- NOTE | 2017-08-08 14:10 | Internal Med Progress Note ---
Date of Encounter: 08/08/17 Time of Encounter: 09:30 - Assessment and plan (1) Chest pain Current Visit: Yes Status: Acute Assessment and plan: Continues to have intermittent chest pain. Given her risk factors, we will proceed with stress test tomorrow. Negative troponins. EKG shows sinus rhythm. Possible old anterior myocardial infarction. Pain controlled with nitroglycerin and fentanyl. High risk for complications due to use of intravenous narcotic medications. Qualifiers: Chest pain type: precordial pain Qualified Code(s): R07.2 - Precordial pain (2) COPD (chronic obstructive pulmonary disease) Current Visit: Yes Status: Chronic Assessment and plan: Not wheezing On today's exam. Continue bronchodilators as needed. Qualifiers: COPD type: unspecified COPD Qualified Code(s): J44.9 - Chronic obstructive pulmonary disease, unspecified (3) Depression Current Visit: Yes Status: Chronic Assessment and plan: Continue BuSpar Qualifiers: Depression Type: unspecified Qualified Code(s): F32.9 - Major depressive disorder, single episode, unspecified (4) Tobacco abuse Current Visit: Yes Status: Chronic Assessment and plan: Continue nicotine patch. - Subjective Interval history: Patient complains of chest pain radiating to left arm. It subsided yesterday evening but has returned this morning. Denies any shortness of breath associated with it. No cough. No fever or chills. No palpitations or dizziness. - Constitutional Vitals: Temp Pulse Resp BP Pulse Ox 98 F 74 16 118/57 96 08/08/17 09:43 08/08/17 09:43 08/08/17 11:22 08/08/17 09:43 08/08/17 11:22 General appearance: Present: cooperative, A&O X 3, answers questions appropriately - Neck Neck exam general surgery: Present: supple, trachea midline. Absent: lymphadenopathy - Respiratory Respiratory exam: Present: CTAB. Absent: accessory muscle use, rales, rhonchi, wheezes - Cardiovascular Cardiovascular exam: Present: RRR, +S1, +S2. Absent: diastolic murmur, gallop, rubs, systolic murmur - GI/Abdominal GI/Abdominal exam: Present: normal bowel sounds, soft, no peritoneal signs. Absent: distended, tenderness - Extremities Exam Extremities exam: Present: warm, radial pulses palpable and symmetrical. Absent : calf tenderness, cyanotic, pedal edema - Neurological Exam Neurological exam: Present: CN II-XII intact, oriented X3, no focal deficits. Absent: facial droop, speech deficit - Skin Skin exam: Present: dry, intact Internal Medicine: Result - Labs CBC & Chem 7: 08/07/17 13:05 08/08/17 03:39 Labs: BMP 08/08/17 03:39 Sodium 140 Potassium 3.8 Chloride 112 H Carbon Dioxide 26 BUN 12 Creatinine 0.70 Glucose 99 Calcium 8.0 L Cardiac Enzymes 08/07/17 08/08/17 08/08/17 Range/Units 21:15 03:39 12:34 Troponin I < 0.03 < 0.03 < 0.03 (< 0.04) ng/mL Liver Function 08/08/17 Range/Units 03:39 Total Bilirubin 0.2 L (0.3-1.0) mg/dL AST 8 L (13-39) Units/L ALT 5 L (7-52) Units/L Alkaline Phosphatase 63 (34-104) Units/L Albumin 3.1 L (3.5-5.7) g/dL - ABG Interpretation ABG results: PT/INR, D-dimer PT 11.1 Seconds (9.4-12.1) 08/07/17 13:05 D-Dimer 1376 ng/mLFEU (0-500) H 08/07/17 13:05 - EKG Interpretation EKG shows normal: sinus rhythm - Prior EKG Data When compared to previous EKG: there is no significant change Consult Discharge Plan - Plan Referrals: NONE,PCP [Primary Care Provider] -
[2017-08-09] MEDS: Ipratropium/Albuterol Neb 3 ML IH SCH ×3 (04:26→11:21)
[2017-08-09] MEDS ORDERED: Regadenoson 0.4 MG/5 ML SYRINGE IVP ONE (07:12)
[2017-08-09] MEDS: predniSONE 10 MG TABLET PO SCH (08:47)
[2017-08-09] MEDS: Nicotine 21 MG PATCH.TD24 TD SCH (08:47)
[2017-08-09] MEDS: Gabapentin 300 MG CAPSULE PO SCH (09:35)
[2017-08-09 10:59] VITALS: BP 147/78
--- NOTE | 2017-08-09 11:05 | Discharge Summary ---
Date of Encounter: 08/09/17 Time of Encounter: 11:02 - Discharge Diagnosis (1) Chest pain Priority: Primary Status: Resolved Qualifiers: Chest pain type: precordial pain Qualified Code(s): R07.2 - Precordial pain (2) COPD (chronic obstructive pulmonary disease) Priority: Secondary Status: Chronic Qualifiers: COPD type: unspecified COPD Qualified Code(s): J44.9 - Chronic obstructive pulmonary disease, unspecified (3) Depression Priority: Secondary Status: Chronic Qualifiers: Depression Type: unspecified Qualified Code(s): F32.9 - Major depressive disorder, single episode, unspecified (4) Tobacco abuse Priority: Secondary Status: Chronic (5) Essential hypertension Priority: Secondary Status: Chronic - Discharge Medications Prescriptions: Lisinopril [Zestril] 5 mg PO DAILY #30 tablet Omeprazole [PriLOSEC] 40 mg PO DAILY #30 cap predniSONE [PredniSONE] 10 mg PO DAILY 6 Days tablet Home Medications: Albuterol Neb [Proventil Neb] 2.5 mg IH Q6H PRN 11/16/16 [History] Buspirone HCl [Buspar] 10 mg PO BID 11/16/16 [History] Gabapentin [Neurontin] 300 mg PO TID 11/16/16 [History] Oxygen 3 l NS HS 11/16/16 [History] Ipratropium/Albuterol Neb [Duoneb] 3 ml IH TID #30 inhsol 11/17/16 [Rx] GuaiFENesin ER [Mucinex] 600 mg PO BID #14 tbbp.12hr 06/07/17 [Rx] Nicotine Patch [Nicoderm] 21 mg TD DAILY #30 patch.td24 06/07/17 [Rx] Citalopram [CeleXA] 20 mg PO DAILY 08/07/17 [History] Simvastatin [Zocor] 10 mg PO DAILY 08/07/17 [History] Lisinopril [Zestril] 5 mg PO DAILY #30 tablet 08/09/17 [Rx] Omeprazole [PriLOSEC] 40 mg PO DAILY #30 cap 08/09/17 [Rx] predniSONE [PredniSONE] 10 mg PO DAILY 6 Days tablet 08/09/17 [Rx] Allergies/Adverse Reactions: 3 Allergy/AdvReac Type Severity Reaction Status Date / Time No Known Allergies Allergy Verified 09/11/15 22:57 Procedures/tests Complete & Pending: Procedures Performed prior 72 hours Category Date Time Status NM cheryl perf SPECT multi [NM] Routine Exams 08/08/17 14:19 Taken EKG [ECG 12 lead ECG] [ECG] Stat Y 08/08/17 12:10 Ordered SP pharm nuclear stress Routine Y 08/09/17 08:00 Completed Date of admission: 08/07/17 15:42 Primary care physician: Enrique Amato DO Discharging clinician: Edgar Lou Anticipated date of discharge: 08/09/17 - Patient Status Disposition: Home, Self-Care Condition: Good Functional capacity at discharge: independent ambulation Overall status at discharge: patient is progressing back to baseline - Discharge Instructions Instructions: Chest Pain (DC), Chronic Obstructive Pulmonary Disease (DC) Follow Up With: NONE,PCP [Non-Partnered Physician] - (in 1-2 weeks) Additional Instructions: Follow-up appointments: If there is not an appointment listed below, please call your physician and schedule a follow-up appointment. If you have congestive heart failure and your symptoms return, make an appointment with your physician. Medication List: Carry an up to date list of medications you are taking at all time. We have given you an updated medication list including any new medications that you have been prescribed. Please provide that list to your primary provider Symptoms: If your condition changes or you experience any of the following symptoms, notify your physician immediately: Unusual or worsening pain, fever, persistent nausea and vomiting, bleeding, increase in swelling (especially in your legs), sudden weight gain, extreme dizziness, chest pain, increased drainage or redness from a wound or incision. Go to the emergency department if you experience a problem with breathing. Weights: If you have a history of swelling or shortness of breath, weigh yourself daily and notify your physician if you have a weight gain of two or more pounds in one day or 5 or more pounds in a week. If you experience any of the warning signs for stroke: Sudden numbness or weakness of the face, arm or leg; especially on one side of the body, sudden confusion, trouble speaking or understanding, sudden trouble seeing in one or both eyes, sudden trouble walking, dizziness, loss of balance or coordination, sudden sever headache with no cause; Call 911 or go to the emergency room. Stroke is a medical emergency. Some risk factors for stroke: Age, cigarette smoking, diabetes, excessive alcohol consumption, family history , high blood pressure, overweight, physical inactivity, prior stroke, heart attack, diagnosis of carotid artery stenosis or other artery disease. If you smoke, STOP: Smoking or tobacco use significantly increases your risk of heart and lung disease. Your chance of disease greatly increases if you continue to smoke. For more information, call the [place] tobacco quit line for smoking cessation QUIT-NOW ( ) - Diet and Activity Activity: wear oxygen at all times Diet: low fat, low cholesterol, low salt diet Hospital course: Ms. Bush is a 56 year old female patient with history of chronic tobacco abuse and COPD and chronic respiratory failure who was hospitalized here with chest pain. She was placed on telemetry and her troponins were trended. They were negative. Patient then underwent stress test today which did not show any signs of ischemia. Her chest pain has now resolved. Patient does take naproxen twice daily at home and this could be causing gastritis which could explain her chest pain. As such I am placing her on omeprazole to see if this would help with her symptoms. She will follow up with her primary care provider for further management. She has been counseled about tobacco cessation. Patient has had elevated blood pressures here and probably has underlying essential hypertension. She has been placed on lisinopril for this. - Time Spent with Patient Total time spent providing and/or coordinating discharge services: Less than 30 minutes (25 min) - Constitutional Vitals: Temp Pulse Resp BP Pulse Ox 98.2 F 65 16 147/78 95 08/09/17 10:58 08/09/17 10:58 08/09/17 10:58 08/09/17 10:58 08/09/17 10:58 General appearance: Present: cooperative, A&O X 3, answers questions appropriately - Neck Neck exam general surgery: Present: supple, trachea midline. Absent: lymphadenopathy - Respiratory Respiratory exam: Present: CTAB. Absent: accessory muscle use, rales, rhonchi, wheezes - Cardiovascular Cardiovascular exam: Present: RRR, +S1, +S2. Absent: diastolic murmur, gallop, rubs, systolic murmur - GI/Abdominal GI/Abdominal exam: Present: normal bowel sounds, soft, no peritoneal signs. Absent: distended, tenderness
--- NOTE | 2017-08-09 16:34 | Electrocardiograph Report ---
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
--- NOTE | 2017-08-09 17:38 | Electrocardiograph Report ---
[address] [place] [address] Test Date: 2017-08-08 Pat Name: Yamilet Bush Department: 114 Room: [facility] Gender: F [employer] Pilot: : 1960 Requested By: Edgar Lou Order Number: [id number] Reading MD: Riky Samuels DO Measurements Intervals [place] Rate: 62 P: 82 CT: 151 QRS: 48 QRSD: 82 T: 77 QT: 392 QTc: 397 Interpretive Statements SINUS RHYTHM ANTEROSEPTAL MYOCARDIAL INFARCTION, PROBABLY OLD Electronically Signed On 08-09-2017 17:36:25 EST by Riky Samuels DO
== END 2017-08-09 12:53 | disposition home or self-care (01) ==
LOC: EMEROO 12:52 → 3NENU 12:52 → SUATTDRO 15:42 → 3NENU 16:07
PROVIDERS: ADMIT Internal Medicine Cardiovascular Disease; ATTEND Internal Medicine

== ENCOUNTER 2018-05-10 13:03 | Inpatient (IN) ==
--- NOTE | 2018-05-10 13:31 | Emergency Department Note ---
Disposition Clinical Impression: Acute exacerbation of chronic obstructive pulmonary disease (COPD) Disposition: Admitted As Inpatient General Adult HPI - General Chief complaint: ED Shortness of Breath/Dyspnea Stated complaint: MARITZA CP Time Seen by Provider: 05/10/18 13:13 Source: patient Limitations: no limitations Nursing Notes Reviewed: Yes Vital Signs Reviewed: Yes - History of Present Illness HPI Narrative: Patient's a 57-year-old female with history of COPD who presents the emergency department with complaints of chest pain which radiates into her back as well as increased work of breathing. She states she uses 3 L oxygen at home at baseline when she needs it, most commonly during night but has increased her requirements to 4 L. Chest and back pain has been present since last night, severe and stabbing in nature and similar to her previous episodes of pneumonia. She states she has had nonproductive cough and fever at home for which she has been using ibuprofen. She denies any nausea, vomiting, diarrhea, dysuria, hematuria, hematochezia, peripheral edema, change in vision, numbness or tingling. Pain Scale: 8 - Related Data Home Medications Medication Instructions Recorded Confirmed RX: Buspirone HCl [Buspar] 10 mg PO BID 11/16/16 05/10/18 RX: Gabapentin [Neurontin] 300 mg PO TID 11/16/16 05/10/18 RX: Oxygen 3 l NS HS 11/16/16 05/10/18 RX: Citalopram [CeleXA] 20 mg PO DAILY 08/07/17 05/10/18 RX: Simvastatin [Zocor] 10 mg PO DAILY 08/07/17 05/10/18 Aclidinium [place] [Tudorza 1 puff IH BID 05/10/18 05/10/18 Pressair] Albuterol Sulfate [Ventolin Hfa] 2 puff IH Q4H PRN 05/10/18 05/10/18 Naproxen [Naprosyn] 250 mg PO BID 05/10/18 05/10/18 RX: Lisinopril [Zestril] 10 mg PO DAILY 05/10/18 05/10/18 RX: hydrOXYzine HCl [Hydroxyzine 25 mg PO HS 05/10/18 05/10/18 HCl] Ranitidine HCl [Acid Criminalist Technician] 150 mg PO DAILY 05/10/18 05/10/18 Previous Rx's Medication Instructions Recorded RX: Ipratropium/Albuterol Neb 3 ml IH TID #30 inhsol 11/17/16 [Duoneb] RX: Omeprazole [PriLOSEC] 40 mg PO DAILY #30 cap 08/09/17 Ondansetron [Zofran ODT] 8 mg SL ONCE PRN #10 tab.rapdis 03/24/18 Allergies Allergy/AdvReac Type Severity Reaction Status Date / Time No Known Allergies Allergy Verified 03/24/18 15:44 All systems ED: reviewed and negative except as stated. Review of Systems: As Per HPI Constitutional: Reports: fever, chills. Denies: weakness, weight change Cardiovascular: Reports: chest pain, dyspnea on exertion. Denies: palpitations, orthopnea, edema, syncope Respiratory: Reports: cough, dyspnea, wheezes. Denies: hemoptysis, stridor, sp utum production Gastrointestinal: Denies: abdominal pain, nausea, vomiting, diarrhea, constipation Genitourinary: Denies: dysuria, frequency, hematuria, discharge Musculoskeletal: Reports: back pain. Denies: neck pain Neurological: Denies: headache, weakness, numbness, paresthesias, confusion Past Medical History - Past Medical History Attestation: Yes The following information was validated with the patient. 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 - Social History Smoking Status: Current every day smoker Smokeless Tobacco Status: No Alcohol use: Reports: none Drug use: Reports: none Physical Exam - General Limitations: no limitations General appearance: alert - Head Head exam: atraumatic, normocephalic - Neck Neck exam: Present: normal inspection, full ROM, trachea midline - Chest Chest inspection: Present: normal inspection, symmetric chest wall rise, tenderness - Respiratory Respiratory exam: Present: respiratory distress (taking long pauses after short sentences, prolonged expiratory phase, breathing through pursed lips, on 4L O2) - Expanded Respiratory Exam Location: rales: Left, Right, Lower, decreased breath sounds: Left, Right, Upper - Cardiovascular Cardiovascular exam: Present: regular rate, normal rhythm, normal heart sounds - Abdominal Exam Abdominal exam: Present: soft, Non-Tender. Absent: distention, guarding, rebound, rigidity - Extremities Exam Extremities exam: Present: normal inspection. Absent: pedal edema - Back Exam Back exam: Present: normal inspection - Neurological Exam Neurological exam: Present: alert, oriented X3 - Psychiatric Psychiatric exam: Present: normal affect, normal mood - Skin Skin exam: Present: warm, dry, intact Course Vital Signs Temperature 98.2 F 05/10/18 13:05 Pulse Rate 111 05/10/18 13:05 Respiratory Rate 26 05/10/18 13:05 O2 Sat by Pulse Oximetry 87 05/10/18 13:05 Temperature 97.6 F 05/10/18 18:01 Pulse Rate 81 05/10/18 18:01 Respiratory Rate 16 05/10/18 20:02 Blood Pressure 127/78 05/10/18 18:01 O2 Sat by Pulse Oximetry 96 05/10/18 20:02 Oxygen Delivery Oxygen Delivery Bipap Medical Decision Making - MDM Narrative Medical decision making narrative: 57-year-old female with history of COPD presenting with symptoms similar to her previous episodes of COPD exacerbation. She is now increased her oxygen requirements. On exam the patient is tachypnic and pauses after each sentence. The patient does have symptoms of chest pain that radiated into her back she does note that these are not new and occur every time she has a COPD exacerbation therefore she is deemed lower risk for PE. She does however present tachycardic and hypoxic therefore obtained a d-dimer which was elevated at 1395. We therefore proceeded with CTA of the chest to evaluate for pulmonary embolism. This revealed no acute pulmonary embolism. EKG unremarkable. Other lab work including CBC, BNP, BMP and troponin also unremarkable. Patient eventually requiring BiPAP for respiratory assistance due to her work of breath ing and she experienced significant improvement in her dyspnea. Discussed the case with Dr. frost, hospitalist who will admit the patient for COPD exacerbation. Patient agrees with and understands course of treatment plan including plan for admission. All questions answered. - Medical Records Medical records reviewed: Yes I reviewed the patient's medical records. - Lab Data Lab results reviewed: Yes I reviewed the patient's lab results. Result diagrams: 05/10/18 13:17 05/10/18 13:17 Lab Results 05/10/18 05/10/18 05/10/18 Range/Units 13:17 13:17 13:17 WBC 9.5 (4.3-11.1) K/mcL RBC 5.09 H (3.82-4.97) M/mcL Hgb 14.8 (11.5-15.4) g/dL Hct 45.3 H (35.3-44.9) % MCV 89.0 (83.0-100.0) fL MCH 29.1 (28.0-33.3) pg MCHC 32.7 (31.6-35.5) g/dL RDW 13.5 (11.5-14.5) % Plt Count 250 (140-400) K/mcL MPV 9.4 (9.4-12.4) fL Immature Gran % 0.2 (0-4) % Seg Neutrophils % 54.8 % Lymphocytes % 34.7 % Monocytes % 7.7 % Eosinophils % 1.9 % Basophils % 0.7 % Neutrophils # 5.2 (1.6-8.9) K/mcL Lymphocytes # 3.3 (0.6-4.6) K/mcL Monocytes # 0.7 (0.0-1.3) K/mcL Eosinophils # 0.2 (0.0-0.6) K/mcL Basophils # 0.1 (0.0-0.2) K/mcL D-Dimer (0-500) ng/mLFEU Sodium 140 (136-145) mEq/L Potassium 3.7 (3.5-5.1) mEq/L Chloride 104 (98-107) mEq/L Carbon Dioxide 28 (23-29) mEq/L BUN 8 (6-20) mg/dL Creatinine 0.66 (0.60-1.20) mg/dL Est GFR ( Amer) > 60 (> 60) Est GFR (Non-Af Amer) > 60 (> 60) BUN/Creatinine Ratio 12 (6-26) Glucose 116 H (70-105) mg/dL Calculated Osmolality 289 (280-300) Lactic Acid (0.5-2.2) mmol/L Calcium 9.3 (8.6-10.3) mg/dL Troponin I < 0.03 (< 0.04) ng/mL B-Natriuretic Peptide 45 (Less than 100) pg/mL 05/10/18 05/10/18 Range/Units 13:17 13:41 WBC (4.3-11.1) K/mcL RBC (3.82-4.97) M/mcL Hgb (11.5-15.4) g/dL Hct (35.3-44.9) % MCV (83.0-100.0) fL MCH (28.0-33.3) pg MCHC (31.6-35.5) g/dL RDW (11.5-14.5) % Plt Count (140-400) K/mcL MPV (9.4-12.4) fL Immature Gran % (0-4) % Seg Neutrophils % % Lymphocytes % % Monocytes % % Eosinophils % % Basophils % % Neutrophils # (1.6-8.9) K/mcL Lymphocytes # (0.6-4.6) K/mcL Monocytes # (0.0-1.3) K/mcL Eosinophils # (0.0-0.6) K/mcL Basophils # (0.0-0.2) K/mcL D-Dimer 1395 H (0-500) ng/mLFEU Sodium (136-145) mEq/L Potassium (3.5-5.1) mEq/L Chloride (98-107) mEq/L Carbon Dioxide (23-29) mEq/L BUN (6-20) mg/dL Creatinine (0.60-1.20) mg/dL Est GFR ( Amer) (> 60) Est GFR (Non-Af Amer) (> 60) BUN/Creatinine Ratio (6-26) Glucose (70-105) mg/dL Calculated Osmolality (280-300) Lactic Acid 0.6 (0.5-2.2) mmol/L Calcium (8.6-10.3) mg/dL Troponin I (< 0.04) ng/mL B-Natriuretic Peptide (Less than 100) pg/mL - Radiology Data Radiology results reviewed: Yes I reviewed the patient's radiology results. Chest X-Ray 05/10/18 13:37 IMPRESSION: 1. No active pulmonary disease. 2. COPD. D/ / Ryder Patel MD / Ryder Patel MD Interpreting Provider: Ryder Patel MD Chest CTA 05/10/18 14:28 IMPRESSION: Negative for acute pulmonary embolism. Moderate centrilobular emphysema with diffuse airway inflammation, the latter of which may be smoking-related and/or acute bronchitis. No consolidative airspace disease. Ectatic descending thoracic aorta, not substantially changed since 08/07/2017 though progressive since 08/08/2008. This is advanced more than expected for patient's age. Consider follow-up CT chest in 2-3 years unless indicated earlier clinically. D/ / Melvin Zayas / Melvin Zayas Interpreting Provider: Melvin Zayas - EKG Data EKG #1 EKG attestation: Yes I reviewed and interpreted this EKG. EKG results narrative: No evidence of ST elevation. EKG shows normal: sinus rhythm Rate: tachycardia Rhythm: NSR Interpretation: no acute changes Attestation Statement - Attestation Attestation: Resident Attestation: I examined this patient and my medical decision making was reviewed with the Resident Physician. I agree with the documented findings, disposition and treatment plan as described except to the extent set forth below. We independently had [id number] contact with the patient. Resident physician Dr. Moore and Dr. Kennedy. Patient presenting today for evaluation of shortness of breath associated chest and back pain which is similar in nature to previous pneumonia. Patient will undergo further evaluation with EKG, blood work, chest x-ray. Patient with diffuse wheezing on exam. Patient has had improvement with breathing treatments. Heart rate is regular rhythm without any significant peripheral edema.
[2018-05-10] MEDS ORDERED: methylPREDNISolone 125 MG/2 ML VIAL IVP ONE (13:34)
[2018-05-10] MEDS ORDERED: Ipratropium/Albuterol Neb 3 ML IH ONE ×2 (13:34→14:00)
[2018-05-10] MEDS ORDERED: *HR* FentaNYL (PF) 100 MCG/2 ML VIAL IVP ONE (13:49)
[2018-05-10 13:59] LABS: Basophils # 0.1 K/mcL (0.0-0.2); Basophils % 0.7 %; Eosinophils # 0.2 K/mcL (0.0-0.6); Eosinophils % 1.9 %; Hematocrit 45.3 % (35.3-44.9); Hemoglobin 14.8 g/dL (11.5-15.4); Immature Granulocytes % 0.2 % (0-4); Lymphocytes # 3.3 K/mcL (0.6-4.6); Lymphocytes % 34.7 %; Mean Corpuscular HGB Conc 32.7 g/dL (31.6-35.5); Mean Corpuscular Hemoglobin 29.1 pg (28.0-33.3); Mean Platelet Volume 9.4 fL (9.4-12.4); Monocytes # 0.7 K/mcL (0.0-1.3); Monocytes % 7.7 %; Neutrophils # 5.2 K/mcL (1.6-8.9); Platelet Count 250 K/mcL (140-400); Red Blood Count 5.09 M/mcL (3.82-4.97); Red Cell Distribution Width 13.5 % (11.5-14.5); Segmented Neutrophils % 54.8 %
[2018-05-10 14:16] LABS: BUN/Creatinine Ratio 12 (6-26); Blood Urea Nitrogen 8 mg/dL (6-20); Calcium 9.3 mg/dL (8.6-10.3); Carbon Dioxide 28 mEq/L (23-29); Chloride 104 mEq/L (98-107); Glucose 116 mg/dL (70-105); Osmolality,Calculated 289 (280-300); Potassium 3.7 mEq/L (3.5-5.1); Sodium 140 mEq/L (136-145); eGFR For Non-African Americans > 60 (> 60)
[2018-05-10] MEDS ORDERED: Isovue-370 500 ML INFUS..BTL IV ONE (14:28)
[2018-05-10 14:35] LABS: Troponin I < 0.03 ng/mL (< 0.04)
[2018-05-10] MEDS: *HR* LORazepam 2 MG/ML VIAL IVP PRN (16:03)
--- NOTE | 2018-05-10 17:10 | Internal Med History&Physical ---
Date of Encounter: 05/10/18 Time of Encounter: 17:01 Internal Medicine - H&P: HPI Chief complaint: SOB Admitted From: Home Plans for Post Hospital Care: Home History of present illness: Ms. Bush is a 57 year old female with history of COPD on Home oxygen anxiety depression, current everyday smoker presented to the ED with complaint of SOB.aspe rpatient sh ehas baseline SOB secondary to her COPD however she has developed increasingly worsening SOB for the past few days. he SOB is both at rest and on ambulation. SOB is associated with dry cough, denies sputum production. she reports that her grandaughter has had recent flu and she believes that she has "caught" the same "bug". she reports that her SOB is worsened on exertion adn she has had to increase her oxygen supply. in addition she reports that her SOB is associated with chest tightness that is band like from the front of her chest and around to the back, cannot specify severity. . she denies cardiac history. and reports that she has had a stress test this year that was negative for ischemia. she reports that she has similar symptoms when she develops COPD exacerbation. she is a current everyday smoker. she denies fever, chills, PND, orthopnea, leg swelling, recent ABx use. has not recieved influenza or pneumonia vaccination this year. she denies fever, chills, N/V/D, palpitations, cold or heat intolerance, Syncope. denies chest trauma, LOC, weakness of her extremities, headache, or vision loss. While the emergency department she was found to have elevated d-dimer, CT angiogram of the chest was performed which was negative for any pulmonary embolism however she was endorsed for further management of her COPD exacerbation. Past Med Surg Social Fam HX - Past Medical History Medical history: COPD, hyperlipidemia, hypertension, other Additional medical history: Brain aneurysm Psychiatric history: anxiety, depression - Past Surgical History Surgical History: other Additional surgical history: Brain surgery. tubal ligation - Social History Smoking Status: Current every day smoker Smokeless Tobacco Status: No Alcohol use: none Drug use: none - Family History Mother Living Status: Still Living Hx Family Cardiac Disorders: Yes (HTN) Hx Family Respiratory Disorders: No Hx Family Cancer: No Hx Family GI Disorders: No Hx Family Endocrine Disorder: No Hx Family Neuromuscular Disorders: No Hx Family Neurologic Disorders: No Hx Family HEENT Disorders: No Hx Family Autoimmune Disorders: No Father Living Status: Hx Family Cardiac Disorders: No Hx Family Respiratory Disorders: No Hx Family Cancer: No Hx Family GI Disorders: No Hx Family Endocrine Disorder: No Hx Family Neuromuscular Disorders: No Hx Family Neurologic Disorders: No Hx Family HEENT Disorders: No Hx Family Autoimmune Disorders: No Internal Medicine - H&P: Meds Buspirone HCl [Buspar] 10 mg PO BID 11/16/16 [History] Gabapentin [Neurontin] 300 mg PO TID 11/16/16 [History] Oxygen 3 l NS HS 11/16/16 [History] Ipratropium/Albuterol Neb [Duoneb] 3 ml IH TID #30 inhsol 11/17/16 [Rx] Citalopram [CeleXA] 20 mg PO DAILY 08/07/17 [History] Simvastatin [Zocor] 10 mg PO DAILY 08/07/17 [History] Omeprazole [PriLOSEC] 40 mg PO DAILY #30 cap 08/09/17 [Rx] Ondansetron [Zofran ODT] 8 mg SL ONCE PRN #10 tab.rapdis 03/24/18 [Rx] Aclidinium [place] [Tudorza Pressair] 1 puff IH BID 05/10/18 [History] Albuterol Sulfate [Ventolin Hfa] 2 puff IH Q4H PRN 05/10/18 [History] Lisinopril [Zestril] 10 mg PO DAILY 05/10/18 [History] Naproxen [Naprosyn] 250 mg PO BID 05/10/18 [History] Ranitidine HCl [Acid Collet Driller] 150 mg PO DAILY 05/10/18 [History] hydrOXYzine HCl [Hydroxyzine HCl] 25 mg PO HS 05/10/18 [History] Allergy/AdvReac Type Severity Reaction Status Date / Time No Known Allergies Allergy Verified 03/24/18 15:44 All Systems PM: A 10-system review of systems was performed and is negative for pertinent findings except as documented above in the HPI. - Constitutional Vitals: Temp Pulse Resp BP Pulse Ox 98.2 F 87 15 120/77 94 05/10/18 13:12 05/10/18 16:08 05/10/18 16:08 05/10/18 16:08 05/10/18 16:12 Exam: General: Patient is alert, oriented, no acute distress, thin Head: atraumatic, normocephalic, Eye: normal appearance, PERRL, no scleral icterus, no conjunctival injection ENT: mucous membranes moist, normal external ear exam Neck: normal inspection, trachea midline, full ROM, no carotid bruits Chest: normal inspection, symmetric chest rise Respiratory: Can speak full sentences, diffuse wheezing in the anterior chest, crackles in the posterior lung field infrascapularly Cardiovascular: Regular rate and rhythm. s1 and s2 No clicks, rubs, gallops, or murmors. Abdomen: Bowel sounds present normoactive x-4 quadrants. Abdomen is soft, nondistended. no Epigastric tenderness. No guarding or rebound. No organomegaly note musculoskeletal: Spontaneously moving all extremities. no edema, no calf tenderness Skin: warm, dry, intact. Neuro: Alert and oriented x4. CN2-12 intact, no focal deficit Psych: Patient's affect is normal Internal Med - H&P Results - Labs CBC & Chem 7: 05/10/18 13:17 05/10/18 13:17 Labs: Short CBC 05/10/18 Range/Units 13:17 WBC 9.5 (4.3-11.1) K/mcL Hgb 14.8 (11.5-15.4) g/dL Hct 45.3 H (35.3-44.9) % Plt Count 250 (140-400) K/mcL Neutrophils # 5.2 (1.6-8.9) K/mcL BMP 05/10/18 13:17 Sodium 140 Potassium 3.7 Chloride 104 Carbon Dioxide 28 BUN 8 Creatinine 0.66 Glucose 116 H Calcium 9.3 Cardiac Enzymes 05/10/18 Range/Units 13:17 Troponin I < 0.03 (< 0.04) ng/mL - EKG Data -: EKG Interpreted by Myself EKG shows normal: sinus rhythm (LAFB, old anterior infarct) - EKG Data Prior EKG available for review: no - Impressions ITS Impressions Chest X-Ray 05/10/18 13:37 IMPRESSION: 1. No active pulmonary disease. 2. COPD. D/ / Ryder Patel MD / Ryder Patel MD Interpreting Provider: Ryder Patel MD Chest CTA 05/10/18 14:28 IMPRESSION: Negative for acute pulmonary embolism. Moderate centrilobular emphysema with diffuse airway inflammation, the latter of which may be smoking-related and/or acute bronchitis. No consolidative airspace disease. Ectatic descending thoracic aorta, not substantially changed since 08/07/2017 though progressive since 08/08/2008. This is advanced more than expected for patient's age. Consider follow-up CT chest in 2-3 years unless indicated earlier clinically. D/ / Melvin Zayas / Melvin Zayas Interpreting Provider: Melvin Zayas - Assessment and plan (1) Acute exacerbation of chronic obstructive pulmonary disease (COPD) Current Visit: No Status: Acute Assessment and plan: Was given Solu-Medrol 125 mg in the ED will continue with 40 mg every 8 hours started ceftriaxone and doxycyline IV BiPAP when necessary for respiratory distress Oxygen via nasal cannula to keep sats above 92 Urine antigens, respiratory viral panel, sputum culture continue home inhalers CTA 05/10/18: IMPRESSION: Negative for acute pulmonary embolism. Moderate centrilobular emphysema with diffuse airway inflammation, the latter of which may be smoking-related and/or acute bronchitis. No consolidative airspace disease. Ectatic descending thoracic aorta, not substantially changed since 08/07/2017 though progressive since 08/08/2008. This is advanced more than expected for patient's age. Consider follow-up CT chest in 2-3 years unless indicated earlier clinically. (2) Acute and chronic respiratory failure Current Visit: No Status: Acute Assessment and plan: D-Dimer elevated (1395) ruled out PE - CTA negative for PE most likely secondary to COPD exacerbation - management as above Qualifiers: Respiratory failure complication: unspecified whether with hypoxia or hypercapnia Qualified Code(s): J96.20 - Acute and chronic respiratory failure, unspecified whether with hypoxia or hypercapnia (3) Chest pain, rule out acute myocardial infarction Current Visit: Yes Status: Acute Assessment and plan: Atypical chest pain will rule out ACS First troponin was negative the emergency department we will continue to follow troponin and EKG every 6 hours Cardiac monitoring Aspirin 81 mg daily Nitroglycerin every 5 minutes when necessary for chest pain Stress test in July 2017 was negative for ischemia Echocardiogram NuCCArd 07/2017 Impression: Pharmacologic stress ECG is negative for ischemia at level of heart rate achieved. Gated EF > 70%. Small sized, mild intensity, fixed apex defect c/w artifact. Perfusion imaging was negative for ischemia or infarct. (4) Anxiety Current Visit: No Status: Chronic Assessment and plan: continue home medications (5) Tobacco abuse Current Visit: No Status: Chronic Assessment and plan: was counseled nicotine patch (6) Essential hypertension Current Visit: Yes Status: Acute Assessment and plan: continue home medications if not CI (7) DVT prophylaxis Current Visit: No Status: Acute Assessment and plan: heaprin sc - Time Spent With Patient Total time spent is greater than 50% in coordination of care (as documented) at patient's floor/unit and/or counseling patient:
[2018-05-10] MEDS ORDERED: Naloxone 0.4 MG/ML INJ IVP PRN (17:20)
[2018-05-10] MEDS: Ipratropium/Albuterol Neb 3 ML IH SCH (20:02)
[2018-05-10] MEDS ORDERED: Acetaminophen 325 MG TABLET PO ONE (20:03)
[2018-05-10] MEDS: Nicotine 14 MG PATCH.TD24 TD SCH (20:45)
[2018-05-10] MEDS: Doxycycline 100 MG in 0.9 % Sodium Chloride Mini Bag 100 ML IVPB SCH (20:46)
[2018-05-10] MEDS: cefTRIAXone 2,000 MG in Water for inj. (sterile) 20 ML 20 ML IVP SCH (20:46)
[2018-05-10] MEDS: Gabapentin 300 MG CAPSULE PO SCH (20:47)
[2018-05-10] MEDS: hydrOXYzine pamoate 25 MG CAPSULE PO SCH (22:02)
[2018-05-10] MEDS: *HR* Heparin 5,000 UNIT/ML VIAL SQ SCH (22:02)
[2018-05-10 22:12] LABS: Adenovirus Not Detected (Not Detect); Bordetella Pertussis Not Detected (Not Detect); Chlamydophila pneumoniae Not Detected (Not Detect); Coronavirus 229E Not Detected (Not Detect); Coronavirus HKU1 Not Detected (Not Detect); Coronavirus NL63 Not Detected (Not Detect); Coronavirus OC43 Not Detected (Not Detect); Human Metapneumovirus Not Detected (Not Detect); Human Rhinovirus/Enterovirus DETECTED (Not Detect); Influenza A Subtype 2009 H1 Not Detected (Not Detect); Influenza A Untypeable Not Detected (Not Detect); Influenza B Not Detected (Not Detect); Mycoplasma pneumoniae Not Detected (Not Detect); Parainfluenza Virus 1 Not Detected (Not Detect); Parainfluenza Virus 2 Not Detected (Not Detect); Parainfluenza Virus 3 Not Detected (Not Detect); Parainfluenza Virus 4 Not Detected (Not Detect); Respiratory Syncytial Virus Not Detected (Not Detect)
[2018-05-11] MEDS: Ipratropium/Albuterol Neb 3 ML IH SCH ×7 (00:08→23:43)
[2018-05-11] MEDS: MethylPREDNISolone 40 MG/ML VIAL IVP SCH ×3 (00:26→14:45)
[2018-05-11 01:08] LABS: Basophils % 0.2 %; Immature Granulocytes % 0.2 % (0-4); Lymphocytes # 1.3 K/mcL (0.6-4.6); Lymphocytes % 27.8 %; Mean Corpuscular HGB Conc 32.3 g/dL (31.6-35.5); Mean Corpuscular Hemoglobin 28.6 pg (28.0-33.3); Mean Corpuscular Volume 88.4 fL (83.0-100.0); Mean Platelet Volume 9.6 fL (9.4-12.4); Monocytes # 0.1 K/mcL (0.0-1.3); Monocytes % 2.1 %; Neutrophils # 3.3 K/mcL (1.6-8.9); Platelet Count 217 K/mcL (140-400); Red Blood Count 4.41 M/mcL (3.82-4.97); Red Cell Distribution Width 13.2 % (11.5-14.5); Segmented Neutrophils % 69.7 %
[2018-05-11 01:14] LABS: Hemoglobin 12.6 g/dL (11.5-15.4)
[2018-05-11 01:28] LABS: Alanine Aminotransferase 9 Units/L (7-52); Albumin 3.6 g/dL (3.5-5.7); Albumin/Globulin Ratio 1.3 (1.1-2.2); Alkaline Phosphatase 87 Units/L (34-104); Aspartate Amino Transferase 11 Units/L (13-39); BUN/Creatinine Ratio 17 (6-26); Bilirubin,Total 0.3 mg/dL (0.3-1.0); Blood Urea Nitrogen 12 mg/dL (6-20); Calcium 8.7 mg/dL (8.6-10.3); Carbon Dioxide 29 mEq/L (23-29); Chloride 102 mEq/L (98-107); Globulin 2.8 g/dL (2.4-3.5); Glucose 245 mg/dL (70-105); Magnesium 2.1 mg/dL (1.6-2.6); Osmolality,Calculated 292 (280-300); Phosphorous 2.9 mg/dL (2.7-4.5); Potassium 3.9 mEq/L (3.5-5.1); Sodium 137 mEq/L (136-145); Total Protein 6.4 g/dL (6.4-8.9); eGFR For Non-African Americans > 60 (> 60)
[2018-05-11] MEDS: (Aclidinium Bromide [Tudorza Pressair] 1 PUFF) IH SCH ×3 (04:00→21:35)
[2018-05-11] MEDS: Doxycycline 100 MG in 0.9 % Sodium Chloride Mini Bag 100 ML IVPB SCH ×2 (06:41→17:47)
[2018-05-11] MEDS: *HR* Heparin 5,000 UNIT/ML VIAL SQ SCH ×3 (06:41→21:29)
[2018-05-11] MEDS: Gabapentin 300 MG CAPSULE PO SCH ×3 (07:46→20:09)
[2018-05-11] MEDS: Nicotine 14 MG PATCH.TD24 TD SCH (07:46)
[2018-05-11] MEDS: Famotidine 20 MG TABLET PO SCH (07:47)
--- NOTE | 2018-05-11 08:54 | Internal Med Progress Note ---
Hospitalist Progress Note - Encounter Date of Encounter: 05/11/18 Time of Encounter: 08:51 - Subjective Interval History: ron was seen and examined at bedside reports that her SOb has improved dramatically as compared to admission. she denies chest pain. her wheezing has improved. tolerating diet, pain is controlled denies fever, chills, N/v/D, orthopnea or PND. - Exam Vitals: Temp Pulse Resp BP Pulse Ox 97.7 F 89 18 130/83 97 05/11/18 06:25 05/11/18 06:25 05/11/18 07:57 05/11/18 06:25 05/11/18 07:57 Exam: General: Patient is alert, oriented, no acute distress, thin Head: atraumatic, normocephalic, Eye: normal appearance, PERRL, no scleral icterus, no conjunctival injection ENT: mucous membranes moist, normal external ear exam Neck: normal inspection, trachea midline, full ROM, no carotid bruits Chest: normal inspection, symmetric chest rise Respiratory: Can speak full sentences, occasional wheezing in the anterior chest, crackles in the posterior lung field infrascapularly ( improved) Cardiovascular: Regular rate and rhythm. s1 and s2 No clicks, rubs, gallops, or murmors. Abdomen: Bowel sounds present normoactive x-4 quadrants. Abdomen is soft, nondistended. no Epigastric tenderness. No guarding or rebound. No organomegaly noted musculoskeletal: Spontaneously moving all extremities. no edema, no calf tenderness Skin: warm, dry, intact. Neuro: Alert and oriented x4. CN2-12 intact, no focal deficit Psych: Patient's affect is normal - Assessment and Plan (1) Acute exacerbation of chronic obstructive pulmonary disease (COPD) Current Visit: Yes Status: Acute Assessment and Plan: Was given Solu-Medrol 125 mg in the ED will continue with 40 mg every 8 hours started ceftriaxone and doxycyline IV BiPAP when necessary for respiratory distress Oxygen via nasal cannula to keep sats above 92 Urine antigens - pending - nusing staff aware respiratory viral panel- positive for rhino/entero virus sputum culture- pending continue home inhalers CTA 05/10/18: IMPRESSION: Negative for acute pulmonary embolism. Moderate centrilobular emphysema with diffuse airway inflammation, the latter of which may be smoking-related and/or acute bronchitis. No consolidative airspace disease. Ectatic descending thoracic aorta, not substantially changed since 08/07/2017 though progressive since 08/08/2008. This is advanced more than expected for patient's age. Consider follow-up CT chest in 2-3 years unless indicated earlier clinically. (2) Acute and chronic respiratory failure Current Visit: No Status: Acute Assessment and Plan: acute on chronic hypoxic respiratory failure secondary to COPD exacerbation - management as above D-Dimer elevated (1395) ruled out PE - CTA negative for PE (3) Chest pain, rule out acute myocardial infarction Current Visit: Yes Status: Acute Assessment and Plan: Atypical chest pain will rule out ACS- currently chest pain free troponin negative x 3 Cardiac monitoring Aspirin 81 mg daily Nitroglycerin every 5 minutes when necessary for chest pain Stress test in July 2017 was negative for ischemia Echocardiogram - pending NuCCArd 07/2017 Impression: Pharmacologic stress ECG is negative for ischemia at level of heart rate achieved. Gated EF > 70%. Small sized, mild intensity, fixed apex defect c/w artifact. Perfusion imaging was negative for ischemia or infarct. (4) Anxiety Current Visit: No Status: Chronic Assessment and Plan: continue home medications (5) Tobacco abuse Current Visit: No Status: Chronic Assessment and Plan: was counseled nicotine patch (6) Essential hypertension Current Visit: Yes Status: Acute Assessment and Plan: continue home medications if not CI (7) DVT prophylaxis Current Visit: No Status: Acute Assessment and Plan: heaprin sc - Time Spent with Patient Total time spent is greater than 50% in coordination of care (as documented) at patient's floor/unit and/or counseling patient: Internal Medicine: Result - Labs CBC & Chem 7: 05/11/18 00:31 05/11/18 00:31 Labs: Short CBC 05/10/18 05/11/18 Range/Units 13:17 00:31 WBC 9.5 4.8 (4.3-11.1) K/mcL Hgb 14.8 12.6 D (11.5-15.4) g/dL Hct 45.3 H 39.0 (35.3-44.9) % Plt Count 250 217 (140-400) K/mcL Neutrophils # 5.2 3.3 (1.6-8.9) K/mcL BMP 05/10/18 05/11/18 13:17 00:31 Sodium 140 137 Potassium 3.7 3.9 Chloride 104 102 Carbon Dioxide 28 29 BUN 8 12 Creatinine 0.66 0.70 Glucose 116 H 245 H Calcium 9.3 8.7 Cardiac Enzymes 05/10/18 05/10/18 05/11/18 Range/Units 13:17 18:24 00:31 Troponin I < 0.03 < 0.03 < 0.03 (< 0.04) ng/mL Liver Function 05/11/18 Range/Units 00:31 Total Bilirubin 0.3 (0.3-1.0) mg/dL AST 11 L (13-39) Units/L ALT 9 (7-52) Units/L Alkaline Phosphatase 87 (34-104) Units/L Albumin 3.6 (3.5-5.7) g/dL - ABG Interpretation ABG results: PT/INR, D-dimer D-Dimer 1395 ng/mLFEU (0-500) H 05/10/18 13:17 - Impressions Impressions Chest X-Ray 05/10/18 13:37 IMPRESSION: 1. No active pulmonary disease. 2. COPD. D/ / Ryder Patel MD / Ryder Patel MD Interpreting Provider: Ryder Patel MD Chest CTA 05/10/18 14:28 IMPRESSION: Negative for acute pulmonary embolism. Moderate centrilobular emphysema with diffuse airway inflammation, the latter of which may be smoking-related and/or acute bronchitis. No consolidative airspace disease. Ectatic descending thoracic aorta, not substantially changed since 08/07/2017 though progressive since 08/08/2008. This is advanced more than expected for patient's age. Consider follow-up CT chest in 2-3 years unless indicated earlier clinically. D/ / Melvin Zayas / Melvin Zayas Interpreting Provider: Melvin Zayas Consult Discharge Plan - Plan Referrals: NONE,PCP [Primary Care Provider] - (2) Acute and chronic respiratory failure Qualifiers: Respiratory failure complication: hypoxia Qualified Code(s): J96.21 - Acute and chronic respiratory failure with hypoxia
[2018-05-11] MEDS ORDERED: Dextrose Gel 15 GM/37.5 ML TUBE PO PRN ×2 (08:56)
[2018-05-11] MEDS ORDERED: *HR* Dextrose 50 % in Water (Syg) 50 ML SYRINGE IVP PRN (08:56)
[2018-05-11] MEDS ORDERED: D5% in Water 1,000 ML IVC PRN (08:56)
[2018-05-11] MEDS: Insulin LISPRO 300 UNITS/3 ML VIAL SQ SCH ×2 (14:28→17:48)
[2018-05-11] MEDS: Acetaminophen 325 MG TABLET PO PRN ×2 (14:45→20:38)
[2018-05-11] MEDS ORDERED: *HR* LORazepam 2 MG/ML VIAL ONE (17:36)
[2018-05-11] MEDS: cefTRIAXone 2,000 MG in Water for inj. (sterile) 20 ML 20 ML IVP SCH (17:45)
[2018-05-11] MEDS: *HR* LORazepam 2 MG/ML VIAL IVP PRN ×2 (17:45→18:54)
[2018-05-11] MEDS ORDERED: Perflutren Lipid Microsphere 1.3 ML in 0.9 % Sodium Chloride 8.7 ML IVP ONE (18:01)
[2018-05-11] MEDS: hydrOXYzine pamoate 25 MG CAPSULE PO SCH (20:09)
[2018-05-11 21:00] LABS: Amphetamine Screen,Urine Negative ng/mL (Cutoff=1000); Barbiturate Screen,Urine Negative ng/mL (Cutoff=200); Benzodiazepines Screen,Urine Negative ng/mL (Cutoff=200); Cannabinoid Screen,Urine Negative ng/mL (Cutoff = 50); Cocaine Screen,Urine Negative ng/mL (Cutoff= 300); Opiate Screen,Urine Positive ng/mL (Cutoff=300); Phencyclidine Screen,Urine Negative ng/mL (Cutoff=25)
[2018-05-12] MEDS: Insulin LISPRO 300 UNITS/3 ML VIAL SQ SCH ×4 (00:09→17:05)
[2018-05-12] MEDS: MethylPREDNISolone 40 MG/ML VIAL IVP SCH ×3 (00:10→17:04)
[2018-05-12] MEDS: Ipratropium/Albuterol Neb 3 ML IH SCH ×6 (03:52→23:19)
[2018-05-12] MEDS: *HR* Heparin 5,000 UNIT/ML VIAL SQ SCH ×3 (05:44→21:45)
[2018-05-12] MEDS: Doxycycline 100 MG in 0.9 % Sodium Chloride Mini Bag 100 ML IVPB SCH (05:45)
[2018-05-12] MEDS: Gabapentin 300 MG CAPSULE PO SCH ×3 (08:22→20:01)
[2018-05-12] MEDS: Famotidine 20 MG TABLET PO SCH (08:22)
[2018-05-12] MEDS: Nicotine 14 MG PATCH.TD24 TD SCH (08:22)
[2018-05-12] MEDS: (Aclidinium Bromide [Tudorza Pressair] 1 PUFF) IH SCH ×2 (08:23→20:01)
[2018-05-12] MEDS: Acetaminophen 325 MG TABLET PO PRN (08:28)
[2018-05-12] MEDS ORDERED: *HR* OxyCODONE Immed Rel 5 MG TABLET PO ONE (11:07)
--- NOTE | 2018-05-12 11:49 | Internal Med Progress Note ---
Hospitalist Progress Note - Encounter Date of Encounter: 05/12/18 Time of Encounter: 07:47 - Subjective Interval History: ron was seen and examined at bedside reports that she was feeling better however developed worsening wheezing overnight and is afraid to go home having to come back again. tolerating diet, pain is controlled denies fever, chills, N/v/D, orthopnea or PND. - Exam Vitals: Temp Pulse Resp BP Pulse Ox 98.1 F 69 18 108/70 96 05/12/18 11:20 05/12/18 11:20 05/12/18 11:22 05/12/18 11:20 05/12/18 11:22 Exam: General: Patient is alert, oriented, no acute distress, thin Head: atraumatic, normocephalic, Eye: normal appearance, PERRL, no scleral icterus, no conjunctival injection ENT: mucous membranes moist, normal external ear exam Neck: normal inspection, trachea midline, full ROM, no carotid bruits Chest: normal inspection, symmetric chest rise Respiratory: Can speak full sentences, occasional wheezing in the anterior chest, crackles in the posterior lung field infrascapularly ( improved) Cardiovascular: Regular rate and rhythm. s1 and s2 No clicks, rubs, gallops, or murmors. Abdomen: Bowel sounds present normoactive x-4 quadrants. Abdomen is soft, nondistended. no Epigastric tenderness. No guarding or rebound. No organomegaly noted musculoskeletal: Spontaneously moving all extremities. no edema, no calf tenderness Skin: warm, dry, intact. Neuro: Alert and oriented x4. CN2-12 intact, no focal deficit Psych: Patient's affect is normal - Assessment and Plan (1) Acute exacerbation of chronic obstructive pulmonary disease (COPD) Current Visit: Yes Status: Acute Assessment and Plan: Was given Solu-Medrol 125 mg in the ED will continue with 40 mg every 8 hours started ceftriaxone and doxycyline IV - will discontinue doxycyline as her Uagx are negative BiPAP when necessary for respiratory distress Oxygen via nasal cannula to keep sats above 92 Urine antigens - negative respiratory viral panel- positive for rhino/entero virus sputum culture- pending continue home inhalers CTA 05/10/18: IMPRESSION: Negative for acute pulmonary embolism. Moderate centrilobular emphysema with diffuse airway inflammation, the latter of which may be smoking-related and/or acute bronchitis. No consolidative airspace disease. Ectatic descending thoracic aorta, not substantially changed since 08/07/2017 though progressive since 08/08/2008. This is advanced more than expected for patient's age. Consider follow-up CT chest in 2-3 years unless indicated earlier clinically. (2) Acute and chronic respiratory failure Current Visit: No Status: Acute Assessment and Plan: acute on chronic hypoxic respiratory failure secondary to COPD exacerbation - management as above D-Dimer elevated (1395) ruled out PE - CTA negative for PE (3) Chest pain, rule out acute myocardial infarction Current Visit: Yes Status: Acute Assessment and Plan: Atypical chest pain will rule out ACS- currently chest pain free troponin negative x 3 Cardiac monitoring Aspirin 81 mg daily Nitroglycerin every 5 minutes when necessary for chest pain Stress test in July 2017 was negative for ischemia Echocardiogram on TTE 05/12/18 LVEF 70-75%. Normal LV chamber size, wall thickness and function. Normal right ventricular structure and function. No significant valvular dysfunction. Unable to estimate RVSP due to lack of TR jet. NuCCArd 07/2017 Impression: Pharmacologic stress ECG is negative for ischemia at level of heart rate achieved. Gated EF > 70%. Small sized, mild intensity, fixed apex defect c/w artifact. Perfusion imaging was negative for ischemia or infarct. (4) Anxiety Current Visit: No Status: Chronic Assessment and Plan: continue home medications (5) Tobacco abuse Current Visit: No Status: Chronic Assessment and Plan: was counseled nicotine patch (6) Essential hypertension Current Visit: Yes Status: Acute Assessment and Plan: continue home medications if not CI (7) DVT prophylaxis Current Visit: No Status: Acute Assessment and Plan: heaprin sc - Time Spent with Patient Total time spent is greater than 50% in coordination of care (as documented) at patient's floor/unit and/or counseling patient: Internal Medicine: Result - Labs CBC & Chem 7: 05/11/18 00:31 05/11/18 00:31 - ABG Interpretation ABG results: PT/INR, D-dimer D-Dimer 1395 ng/mLFEU (0-500) H 05/10/18 13:17 - Impressions Impressions Echocardiogram 05/10/18 17:22 Impressions: LVEF 70-75%. Normal LV chamber size, wall thickness and function. Normal right ventricular structure and function. No significant valvular dysfunction. Unable to estimate RVSP due to lack of TR jet. Left Ventricular Wall Motion: Rest Echo Findings All wall segments showed normal motion. Findings: Study Quality * Technically adequate exam. ECG Findings * Normal sinus rhythm. Left Ventricle * LVEF 70-75%. * Normal LV chamber size, wall thickness and function. * Normal left ventricular diastolic function. Right Ventricle * Normal right ventricular structure and function. Left Atrium * Normal left atrial size. Right Atrium * Normal right atrial size. Interatrial Septum * Interatrial septum not well evaluated. * No evidence of PFO by color Doppler. Aortic Valve * Aortic valve not well visualized. * No aortic stenosis. * No aortic regurgitation. Mitral Valve * Normal mitral valve structure and function. * No mitral stenosis. * No mitral regurgitation. Tricuspid Valve * Normal tricuspid valve structure and function. * No tricuspid stenosis. * No tricuspid regurgitation. * Unable to estimate RVSP due to lack of TR jet. * Estimated RA pressure is 8 mmHg. Pulmonic Valve * Pulmonic valve not well visualized. * No pulmonic stenosis. * Trace pulmonic regurgitation. Aorta * Normally sized aortic root. Pericardium * The pericardium appears normal. IVC * Normal IVC dimensions and inspiratory collapse. Consult Discharge Plan - Plan Referrals: NONE,PCP [Primary Care Provider] - (2) Acute and chronic respiratory failure Qualifiers: Respiratory failure complication: hypoxia Qualified Code(s): J96.21 - Acute and chronic respiratory failure with hypoxia
[2018-05-12] MEDS: cefTRIAXone 2,000 MG in Water for inj. (sterile) 20 ML 20 ML IVP SCH (17:04)
[2018-05-12] MEDS: hydrOXYzine pamoate 25 MG CAPSULE PO SCH (20:01)
[2018-05-13] MEDS: Insulin LISPRO 300 UNITS/3 ML VIAL SQ SCH ×3 (00:25→12:01)
[2018-05-13] MEDS: MethylPREDNISolone 40 MG/ML VIAL IVP SCH ×2 (00:26→09:46)
[2018-05-13] MEDS: Ipratropium/Albuterol Neb 3 ML IH SCH ×4 (04:02→16:07)
[2018-05-13 06:08] LABS: Hematocrit 38.6 % (35.3-44.9); Mean Corpuscular HGB Conc 31.1 g/dL (31.6-35.5); Mean Corpuscular Hemoglobin 28.6 pg (28.0-33.3); Mean Corpuscular Volume 91.9 fL (83.0-100.0); Mean Platelet Volume 9.4 fL (9.4-12.4); Platelet Count 256 K/mcL (140-400); Red Cell Distribution Width 13.3 % (11.5-14.5)
[2018-05-13] MEDS: *HR* Heparin 5,000 UNIT/ML VIAL SQ SCH ×2 (06:29→14:13)
[2018-05-13 06:34] LABS: BUN/Creatinine Ratio 27 (6-26); Blood Urea Nitrogen 17 mg/dL (6-20); Calcium 9.2 mg/dL (8.6-10.3); Carbon Dioxide 34 mEq/L (23-29); Chloride 102 mEq/L (98-107); Glucose 137 mg/dL (70-105); Osmolality,Calculated 290 (280-300); Potassium 4.7 mEq/L (3.5-5.1); Sodium 138 mEq/L (136-145); eGFR For Non-African Americans > 60 (> 60)
[2018-05-13] MEDS: Famotidine 20 MG TABLET PO SCH (09:45)
[2018-05-13] MEDS: Nicotine 14 MG PATCH.TD24 TD SCH (09:46)
[2018-05-13] MEDS: Gabapentin 300 MG CAPSULE PO SCH ×2 (09:46→14:13)
[2018-05-13 11:17] VITALS: BP 130/75
--- NOTE | 2018-05-13 12:48 | Discharge Summary ---
<Kilo Riggs - Last Filed: 05/13/18 13:14> Orders not resulted at time of discharge: Pending orders 05/10/18 17:22 Culture,Sputum with Gram Stain [RM] Stat Date of Encounter: 05/13/18 - Discharge Diagnosis (1) Acute and chronic respiratory failure Priority: Primary Status: Acute Qualifiers: Respiratory failure complication: hypoxia Qualified Code(s): J96.21 - Acute and chronic respiratory failure with hypoxia (2) Acute exacerbation of chronic obstructive pulmonary disease (COPD) Priority: Secondary Status: Acute (3) Tobacco abuse Priority: Secondary Status: Chronic (4) Anxiety Priority: Secondary Status: Chronic (5) Chest pain, rule out acute myocardial infarction Priority: Secondary Status: Acute (6) Essential hypertension Priority: Secondary Status: Acute Discharge discussed with: patient, family - Time Spent with Patient Total time spent providing and/or coordinating discharge services: Less than 30 minutes - Discharge Medications Prescriptions: Aclidinium Harrison [Tudorza Pressair] 1 puff IH BID 30 Days #1 [email or web address] Albuterol Sulfate [Ventolin Hfa] 2 puff IH Q4H PRN #1 [email or web address] PRN Reason: Dyspnea GuaiFENesin ER [Mucinex] 600 mg PO BID 10 Days #20 tbbp.12hr Ipratropium/Albuterol Neb [Duoneb] 3 ml IH TID PRN 30 Days #90 inhsol PRN Reason: Dyspnea predniSONE [PredniSONE] 20 mg PO AD 12 Days #20 tablet Home Medications: Buspirone HCl [Buspar] 10 mg PO BID 11/16/16 [History] Gabapentin [Neurontin] 300 mg PO TID 11/16/16 [History] Citalopram [CeleXA] 20 mg PO DAILY 08/07/17 [History] Simvastatin [Zocor] 10 mg PO DAILY 08/07/17 [History] Omeprazole [PriLOSEC] 40 mg PO DAILY #30 cap 08/09/17 [Rx] Ondansetron [Zofran ODT] 8 mg SL ONCE PRN #10 tab.rapdis 03/24/18 [Rx] Lisinopril [Zestril] 10 mg PO DAILY 05/10/18 [History] Naproxen [Naprosyn] 250 mg PO BID 05/10/18 [History] Ranitidine HCl [Acid Stem Roller Or Crusher Operator] 150 mg PO DAILY 05/10/18 [History] hydrOXYzine HCl [Hydroxyzine HCl] 25 mg PO HS 05/10/18 [History] Acetaminophen [Tylenol] 650 mg PO Q6HR PRN tablet 05/13/18 [Rx] Aclidinium Harrison [Tudorza Pressair] 1 puff IH BID 30 Days #1 aer.[email or web address] 05/13/18 [Rx] Albuterol Sulfate [Ventolin Hfa] 2 puff IH Q4H PRN #1 hfa.aer.ad 05/13/18 [Rx] GuaiFENesin ER [Mucinex] 600 mg PO BID 10 Days #20 tbbp.12hr 05/13/18 [Rx] Ipratropium/Albuterol Neb [Duoneb] 3 ml IH TID PRN 30 Days #90 inhsol 05/13/18 [Rx] Oxygen 4 l NS CONT #0 05/13/18 [Rx] predniSONE [PredniSONE] 20 mg PO AD 12 Days #20 tablet 05/13/18 [Rx] Allergies/Adverse Reactions: Allergy/AdvReac Type Severity Reaction Status Date / Time No Known Allergies Allergy Verified 03/24/18 15:44 Date of admission: 05/10/18 17:59 Primary care physician: PCP NONE Consults: 05/10/18 17:22 Consult to Nutrition [CONS] Routine Comment: Consulting Provider: NUTRITION Reason for Dietary Consult: PO Supplementation - Constitutional Vitals: Temp Pulse Resp BP Pulse Ox 97.7 F 71 16 130/75 97 05/13/18 11:11 05/13/18 11:11 05/13/18 11:11 05/13/18 11:11 05/13/18 12:31 Exam: General: Patient is alert, oriented, no acute distress, thin Head: atraumatic, normocephalic Neck: normal inspection, trachea midline, full ROM, supple Chest: normal inspection, symmetric chest rise Respiratory: Bilateral expiratory wheezing, no resp distress on O2. Cardiovascular: Regular rate and rhythm. s1 and s2 No clicks, rubs, gallops, or murmurs. Abdomen: +BS. Abdomen is soft, nondistended, nontender musculoskeletal: Spontaneously moving all extremities. no edema, no calf tenderness Skin: warm, dry, intact. Neuro: Alert and oriented x4. speech clear, no focal deficit Psych: Patient's affect is normal - Patient Status Disposition: Home, Self-Care Condition: Good Functional capacity at discharge: independent ambulation Overall status at discharge: patient is back to baseline - Discharge Instructions Instructions: Chronic Obstructive Pulmonary Disease (DC) Follow Up With: NONE,PCP [Primary Care Provider] - (In 1-2 weeks) Luther Echeverria MD [Partnered Physician] - (In 1-2 weeks) Additional Instructions: Please continue medications as prescribed and follow up with your primary care provider next week. Return or seek medical care if you have any new or worsening symptoms such as shortness of breath, increased sputum, fever, or chest pain. - Diet and Activity Activity: increase activity as tolerated Diet: low salt diet (with protein shakes with lunch/dinner.) <Evan Bravo - Last Filed: 05/13/18 13:49> - NOTES TO OUTPATIENT PROVIDER Notes to Outpatient Provider: Follow up CT chest 2-3 years to re-evaluate AAA Orders not resulted at time of discharge: Pending orders 05/10/18 17:22 Culture,Sputum with Gram Stain [RM] Stat Date of Encounter: 05/13/18 Time of Encounter: 09:00 - Discharge Diagnosis (1) Acute exacerbation of chronic obstructive pulmonary disease (COPD) Priority: Primary Status: Acute (2) Acute and chronic respiratory failure Priority: Secondary Status: Acute Qualifiers: Respiratory failure complication: hypoxia Qualified Code(s): J96.21 - Acute and chronic respiratory failure with hypoxia (3) Chest pain, rule out acute myocardial infarction Priority: Secondary Status: Acute (4) Anxiety Priority: Secondary Status: Chronic (5) Tobacco abuse Priority: Secondary Status: Chronic (6) Essential hypertension Priority: Secondary Status: Chronic (7) DVT prophylaxis Priority: Secondary Status: Acute Hospital course: Ms. Bush is a 57 year old female who had a hospital stay from 05/10 to 05/13. She presented to the ED with SOB, dyspnea, CP radiating to her back, and increased work of breathing. The pt has a PMH of COPD, HLD, and HTN. The following series of exams/procedures were obtained: - Chest x-ray: - no acute pulmonary disease - COPD - Chest CTA: - no PE - ectactic descending aorta (follow up CT chest 2-3 yrs) - Echo: - LVEF 70-75% - Serial trops: - negative The pt had an acute COPD exacerbation and was started on steroids IV solumedrol, then transitioned to PO steriods when tolerable. Pt also completed an abx course of ceftriaxone and doxycycline. Pts respiratory status improved with supplemental O2. Pt is hemodynamically stable with no more acute complaints besides dry cough and weakness. Plan: - Prednisone taper - Prescription for home O2, inhaler, nebullizer - Mucinx for dry cough - Follow up CT chest 2-3 yrs to re-evaluate AAA - Lifestyle modifications - Smoking cessation Discharge discussed with: patient - Time Spent with Patient Total time spent providing and/or coordinating discharge services: Date of admission: 05/10/18 17:59 Primary care physician: PCP NONE Consults: 05/10/18 17:22 Consult to Nutrition [CONS] Routine Comment: Consulting Provider: NUTRITION Reason for Dietary Consult: PO Supplementation Discharging clinician: Edgar Lou Anticipated date of discharge: 05/13/18 - Constitutional Vitals: Temp Pulse Resp BP Pulse Ox 97.7 F 71 16 130/75 97 05/13/18 11:11 05/13/18 11:11 05/13/18 11:11 05/13/18 11:11 05/13/18 12:31 General appearance: Present: A&O X 3, answers questions appropriately Exam: General: Patient is alert, oriented, no acute distress, thin Head: atraumatic, normocephalic, Neck: normal inspection, trachea midline, full ROM, no carotid bruits Chest: normal inspection, symmetric chest rise Respiratory: Can speak full sentences, occasional wheezing in the anterior chest, crackles in the posterior lung field infrascapularly ( improved) Cardiovascular: Regular rate and rhythm. s1 and s2 No clicks, rubs, gallops, or murmors. Abdomen: Bowel sounds present normoactive x-4 quadrants. Abdomen is soft, nondistended. no Epigastric tenderness. No guarding or rebound. No organome jeromy noted musculoskeletal: Spontaneously moving all extremities. no edema, no calf tenderness Skin: warm, dry, intact. Neuro: Alert and oriented x4. CN2-12 intact, no focal deficit Psych: Patient's affect is normal - Patient Status Functional capacity at discharge: independent ambulation Overall status at discharge: patient is back to baseline <Edgar Lou - Last Filed: 05/13/18 14:37> Orders not resulted at time of discharge: Pending orders 05/10/18 17:22 Culture,Sputum with Gram Stain [RM] Stat Date of Encounter: 05/13/18 Time of Encounter: 10:10 - Discharge Diagnosis (1) Acute exacerbation of chronic obstructive pulmonary disease (COPD) Status: Acute (2) Tobacco abuse Status: Chronic (3) Anxiety Status: Chronic (4) Acute and chronic respiratory failure Status: Acute Qualifiers: Respiratory failure complication: hypoxia Qualified Code(s): J96.21 - Acute and chronic respiratory failure with hypoxia (5) DVT prophylaxis Status: Acute (6) Chest pain, rule out acute myocardial infarction Status: Acute (7) Essential hypertension Status: Acute Hospital course: Ms. Bush is a 57 year old female - Time Spent with Patient Total time spent providing and/or coordinating discharge services: Less than 30 minutes (10 min) Date of admission: 05/10/18 17:59 Primary care physician: PCP NONE Consults: 05/10/18 17:22 Consult to Nutrition [CONS] Routine Comment: Consulting Provider: NUTRITION Reason for Dietary Consult: PO Supplementation - Constitutional Vitals: Temp Pulse Resp BP Pulse Ox 97.7 F 71 16 130/75 97 05/13/18 11:11 05/13/18 11:11 05/13/18 11:11 05/13/18 11:11 05/13/18 12:31 - Diet and Activity Activity: increase activity as tolerated, wear oxygen at all times - Attending Attestation I saw evaluated and examined this patient and my medical decision-making was reviewed with the Resident Physician, Kilo Riggs. I agree with the documented findings, disposition and treatment plan as described except to any changes set forth below. We independently had [id number] contact with the patient. Patient with a history of COPD, anxiety, depression was a chronic smoker was hospitalized here after she presented to the ER with complaints of shortness of breath. Patient has been using her significant other's oxygen at home. She was admitted here for acute COPD exacerbation and treated with bronchodilators, antibiotics and steroids. She also had some chest pain reported which was worked up with troponins and EKG and was found to be negative. Since she had a stress test earlier this year and her symptoms more pointed toward COPD, no further workup was done for this. She also underwent CT angiogram which was negative for PE. Her symptoms have slowly improved with aggressive treatment of COPD. She does not have chest pain at this time. She does become dyspneic when she is off oxygen. She has been qualified for home oxygen today and will be prescribed the same. On exam, patient does have improved air entry bilaterally with minimal wheezing. S1 and S2 are normal. No chest wall tenderness noted. Patient will be discharged today on steroid taper and will follow up with pulmonology after discharge. Addendum entered and electronically signed by Kilo Riggs DO 05/13/18 13:52: Seen and reviewed.
[2018-05-13] MEDS ORDERED: predniSONE 20 MG TABLET PO SCH (16:00)
--- NOTE | 2018-05-14 21:58 | Electrocardiograph Report ---
[address] [address] Test Date: 2018-05-10 Pat Name: Yamilet Bush Department: EXAM2 Room: 2A Gender: F Maintenance Scheduler: : 1960 Requested By: Madelaine Kennedy Order Number: [id number] Reading MD: Candie Roche Measurements Intervals [place] Rate: 99 P: 83 CA: 122 QRS: -55 QRSD: 93 T: 73 QT: 350 QTc: 450 Interpretive Statements Sinus rhythm Left axis deviation Poor R wave progression Nonspecific T abnormalities Electronically Signed On 05-14-2018 21:56:47 EST by Candie Roche
== END 2018-05-13 16:15 | disposition home or self-care (01) | DRG 190 ==
LOC: 3BNU 13:03 → EMEROOARM 13:03 → SUATTDRO 17:01 → 3BNU 18:09 → 2ANU 05-12 18:47
PROVIDERS: ADMIT Internal Medicine; ATTEND Internal Medicine

== ENCOUNTER 2019-06-24 14:07 | Inpatient (IN) ==
[2019-06-24] MEDS ORDERED: Ipratropium/Albuterol Neb 3 ML IH ONE (14:13)
[2019-06-24] MEDS ORDERED: methylPREDNISolone 125 MG/2 ML VIAL IVP ONE (14:13)
[2019-06-24] MEDS ORDERED: *HR* FentaNYL (PF) 100 MCG/2 ML VIAL IVP ONE (14:21)
[2019-06-24 14:59] LABS: Basophils # 0.1 K/mcL (0.0-0.2); Basophils % 0.4 %; Eosinophils # 0.1 K/mcL (0.0-0.6); Eosinophils % 0.6 %; Hematocrit 40.5 % (35.3-44.9); Hemoglobin 13.9 g/dL (11.5-15.4); Immature Granulocytes % 0.3 % (0-4); Lymphocytes # 2.5 K/mcL (0.6-4.6); Lymphocytes % 19.2 %; Mean Corpuscular HGB Conc 34.3 g/dL (31.6-35.5); Mean Corpuscular Hemoglobin 29.4 pg (28.0-33.3); Mean Corpuscular Volume 85.8 fL (83.0-100.0); Mean Platelet Volume 9.6 fL (9.4-12.4); Monocytes % 7.9 %; Neutrophils # 9.2 K/mcL (1.6-8.9); Platelet Count 283 K/mcL (140-400); Red Blood Count 4.72 M/mcL (3.82-4.97); Red Cell Distribution Width 12.2 % (11.5-14.5); Segmented Neutrophils % 71.6 %; White Blood Count 12.9 K/mcL (4.3-11.1)
[2019-06-24 15:05] LABS: Prothrombin Time 11.9 Seconds (9.4-12.1)
[2019-06-24] MEDS ORDERED: levoFLOXacin 750 MG/150 ML 750 MG/150 ML BAG IVPB ONE (15:16)
[2019-06-24 15:20] LABS: Alanine Aminotransferase 13 Units/L (7-52); Albumin 3.8 g/dL (3.5-5.7); Albumin/Globulin Ratio 1.2 (1.1-2.2); Alkaline Phosphatase 94 Units/L (34-104); Aspartate Amino Transferase 14 Units/L (13-39); BUN/Creatinine Ratio 13 (6-26); Bilirubin,Direct 0.1 mg/dL (0.0-0.2); Bilirubin,Indirect 0.5 mg/dL (0.0-1.0); Bilirubin,Total 0.6 mg/dL (0.3-1.0); Blood Urea Nitrogen 8 mg/dL (8-23); Calcium 9.5 mg/dL (8.6-10.3); Carbon Dioxide 28 mEq/L (23-29); Chloride 101 mEq/L (98-107); Globulin 3.2 g/dL (2.4-3.5); Glucose 90 mg/dL (70-105); Osmolality,Calculated 278 (280-300); Potassium 3.5 mEq/L (3.5-5.1); Sodium 135 mEq/L (136-145); Troponin I < 0.03 ng/mL (< 0.04); eGFR For African Americans > 60 (> 60); eGFR For Non-African Americans > 60 (> 60)
[2019-06-24] MEDS ORDERED: Naloxone 0.4 MG/ML INJ IVP PRN (17:21)
[2019-06-24] MEDS ORDERED: Ondansetron 4 MG/2 ML VIAL IVP PRN (17:21)
[2019-06-24] MEDS ORDERED: Ipratropium/Albuterol Neb 3 ML IH PRN (17:24)
[2019-06-24] MEDS ORDERED: tiZANidine 4 MG TABLET PO PRN (17:29)
[2019-06-24] MEDS ORDERED: Ondansetron ODT 4 MG TAB.RAPDIS SL PRN (17:29)
[2019-06-24] MEDS ORDERED: Acetaminophen 325 MG TABLET PO PRN (17:29)
[2019-06-24] MEDS: MethylPREDNISolone 40 MG/ML VIAL IVP SCH (18:37)
[2019-06-24] MEDS: *HR* Heparin 5,000 UNIT/ML VIAL SQ SCH (18:37)
[2019-06-24 19:45] LABS: Adenovirus Not Detected (Not Detect); Bordetella Pertussis Not Detected (Not Detect); Chlamydophila pneumoniae Not Detected (Not Detect); Coronavirus 229E Not Detected (Not Detect); Coronavirus HKU1 Not Detected (Not Detect); Coronavirus NL63 Not Detected (Not Detect); Coronavirus OC43 Not Detected (Not Detect); Human Metapneumovirus Not Detected (Not Detect); Human Rhinovirus/Enterovirus Not Detected (Not Detect); Influenza A Subtype 2009 H1 Not Detected (Not Detect); Influenza A Untypeable Not Detected (Not Detect); Influenza B Not Detected (Not Detect); Mycoplasma pneumoniae Not Detected (Not Detect); Parainfluenza Virus 1 Not Detected (Not Detect); Parainfluenza Virus 2 Not Detected (Not Detect); Parainfluenza Virus 3 Not Detected (Not Detect); Parainfluenza Virus 4 Not Detected (Not Detect); Respiratory Syncytial Virus Not Detected (Not Detect)
[2019-06-24] MEDS: Budesonide/Formoterol 160/4.5 1 PUFF INH IH SCH (20:35)
[2019-06-24] MEDS: Ipratropium/Albuterol Neb 3 ML IH SCH (20:35)
[2019-06-24] MEDS: Gabapentin 300 MG CAPSULE PO SCH (20:45)
[2019-06-24] MEDS: hydrOXYzine pamoate 25 MG CAPSULE PO SCH (20:45)
[2019-06-24] MEDS: *HR* LORazepam 2 MG/ML VIAL IVP PRN (21:59)
[2019-06-25] MEDS: Ipratropium/Albuterol Neb 3 ML IH SCH ×6 (00:18→20:03)
[2019-06-25] MEDS ORDERED: 0.9 % Sodium Chloride 1,000 ML IVC ONE (00:44)
[2019-06-25 03:47] LABS: Basophils % 0.2 %; Hematocrit 33.2 % (35.3-44.9); Immature Granulocytes % 0.2 % (0-4); Lymphocytes # 0.5 K/mcL (0.6-4.6); Lymphocytes % 11.6 %; Mean Corpuscular HGB Conc 32.8 g/dL (31.6-35.5); Mean Corpuscular Hemoglobin 29.9 pg (28.0-33.3); Monocytes # 0.1 K/mcL (0.0-1.3); Monocytes % 2.5 %; Neutrophils # 3.7 K/mcL (1.6-8.9); Platelet Count 221 K/mcL (140-400); Red Blood Count 3.65 M/mcL (3.82-4.97); Segmented Neutrophils % 85.5 %
[2019-06-25 03:49] LABS: Hemoglobin 10.9 g/dL (11.5-15.4); White Blood Count 4.3 K/mcL (4.3-11.1)
[2019-06-25] MEDS: *HR* LORazepam 2 MG/ML VIAL IVP PRN ×3 (03:57→19:48)
[2019-06-25 04:00] LABS: BUN/Creatinine Ratio 17 (6-26); Blood Urea Nitrogen 11 mg/dL (8-23); Calcium 8.4 mg/dL (8.6-10.3); Carbon Dioxide 31 mEq/L (23-29); Chloride 100 mEq/L (98-107); Cholesterol 143 mg/dL (< 200); Glucose 200 mg/dL (70-105); HDL Cholesterol 36 mg/dL (40-59); LDL Cholesterol,Calculated 89 mg/dL (0-99); Osmolality,Calculated 291 (280-300); Potassium 3.4 mEq/L (3.5-5.1); Sodium 138 mEq/L (136-145); Triglycerides 89 mg/dL (< 150); eGFR For African Americans > 60 (> 60); eGFR For Non-African Americans > 60 (> 60)
[2019-06-25] MEDS: *HR* Heparin 5,000 UNIT/ML VIAL SQ SCH ×2 (06:00→16:53)
[2019-06-25] MEDS: MethylPREDNISolone 40 MG/ML VIAL IVP SCH ×2 (06:01→16:53)
[2019-06-25] MEDS: Budesonide/Formoterol 160/4.5 1 PUFF INH IH SCH ×2 (07:44→20:03)
[2019-06-25] MEDS: Azithromycin 500 MG in 0.9 % Sodium Chloride 250 ML IVPB SCH (09:22)
[2019-06-25] MEDS: cefTRIAXone 1,000 MG in Water for inj. (sterile) 10 ML IVP SCH (09:23)
[2019-06-25] MEDS: Gabapentin 300 MG CAPSULE PO SCH ×3 (09:23→19:44)
[2019-06-25] MEDS: hydrOXYzine pamoate 25 MG CAPSULE PO SCH (19:44)
[2019-06-26] MEDS: Ipratropium/Albuterol Neb 3 ML IH SCH ×4 (00:05→11:43)
[2019-06-26] MEDS: MethylPREDNISolone 40 MG/ML VIAL IVP SCH (05:28)
[2019-06-26] MEDS: *HR* Heparin 5,000 UNIT/ML VIAL SQ SCH (05:28)
[2019-06-26] MEDS: *HR* LORazepam 2 MG/ML VIAL IVP PRN (05:35)
[2019-06-26 06:51] VITALS: BP 138/75
[2019-06-26] MEDS: Budesonide/Formoterol 160/4.5 1 PUFF INH IH SCH (07:26)
[2019-06-26] MEDS: Gabapentin 300 MG CAPSULE PO SCH (08:05)
[2019-06-26] MEDS: cefTRIAXone 1,000 MG in Water for inj. (sterile) 10 ML IVP SCH (08:06)
[2019-06-26] MEDS: Azithromycin 500 MG in 0.9 % Sodium Chloride 250 ML IVPB SCH (08:06)
[2019-06-26] MEDS ORDERED: FLU Vac QV 19-20 (6Month+)/PF 0.5 ML SYRINGE IM ONE (11:01)
== END 2019-06-26 12:50 | disposition home or self-care (01) | DRG 193 ==
LOC: 2ANU 14:07 → EMEROOARM 14:07 → SUATTDRO 18:14 → 2ANU 18:20
PROVIDERS: ADMIT Internal Medicine; ATTEND Internal Medicine

== ENCOUNTER 2021-02-09 16:50 | Inpatient (IN) ==
[2021-02-09] MEDS ORDERED: 0.9 % Sodium Chloride 1,000 ML IVC ONE (17:15)
[2021-02-09] MEDS ORDERED: methylPREDNISolone 125 MG/2 ML VIAL IVP ONE (17:15)
[2021-02-09] MEDS ORDERED: Ipratropium/Albuterol Neb 3 ML IH ONE (17:16)
[2021-02-09 17:37] LABS: Basophils # 0.1 K/mcL (0.0-0.2); Basophils % 0.4 %; Eosinophils # 0.2 K/mcL (0.0-0.6); Eosinophils % 1.4 %; Hematocrit 41.4 % (35.3-44.9); Immature Granulocytes % 0.3 % (0-4); Lymphocytes # 2.1 K/mcL (0.6-4.6); Lymphocytes % 16.3 %; Mean Corpuscular HGB Conc 31.4 g/dL (31.6-35.5); Mean Corpuscular Hemoglobin 28.6 pg (28.0-33.3); Mean Corpuscular Volume 91.2 fL (83.0-100.0); Mean Platelet Volume 9.2 fL (9.4-12.4); Monocytes % 8.1 %; Neutrophils # 9.4 K/mcL (1.6-8.9); Platelet Count 346 K/mcL (140-400); Red Blood Count 4.54 M/mcL (3.82-4.97); Red Cell Distribution Width 12.5 % (11.5-14.5); Segmented Neutrophils % 73.5 %; White Blood Count 12.8 K/mcL (4.3-11.1)
[2021-02-09 17:44] LABS: INR 1.2; Prothrombin Time 13.3 Seconds (9.4-12.1)
[2021-02-09 17:47] LABS: Activated Partial Thrombo Time 54.8 Seconds (26.0-36.0)
[2021-02-09 17:58] LABS: Alanine Aminotransferase 4 Units/L (7-52); Albumin 3.8 g/dL (3.5-5.7); Albumin/Globulin Ratio 1.1 (1.1-2.2); Alkaline Phosphatase 110 Units/L (34-104); Aspartate Amino Transferase 7 Units/L (13-39); BUN/Creatinine Ratio 13 (6-26); Bilirubin,Direct 0.1 mg/dL (0.0-0.2); Bilirubin,Indirect 0.2 mg/dL (0.0-1.0); Bilirubin,Total 0.3 mg/dL (0.3-1.0); Blood Urea Nitrogen 8 mg/dL (8-23); Calcium 9.3 mg/dL (8.6-10.3); Carbon Dioxide 37 mEq/L (23-29); Chloride 97 mEq/L (98-107); Globulin 3.5 g/dL (2.4-3.5); Glucose 118 mg/dL (70-105); Osmolality,Calculated 291 (280-300); Potassium 3.8 mEq/L (3.5-5.1); Sodium 141 mEq/L (136-145); Total Protein 7.3 g/dL (6.4-8.9); Troponin I < 0.03 ng/mL (< 0.04); eGFR For African Americans > 60 (> 60); eGFR For Non-African Americans > 60 (> 60)
[2021-02-09] MEDS ORDERED: Azithromycin 500 MG in 0.9 % Sodium Chloride 250 ML IVPB ONE (18:17)
[2021-02-09] MEDS ORDERED: cefTRIAXone 1,000 MG in 0.9 % Sodium Chloride Mini Bag 100 ML IVPB ONE (18:17)
[2021-02-09 20:12] LABS: Influenza A PCR Negative (Negative); Influenza B PCR Negative (Negative); Resp. Syncytial Virus PCR Negative (Negative); SARS-CoV-2 by PCR (In House) Negative (Negative)
[2021-02-09] MEDS ORDERED: Isovue-370 500 ML BOTTLE IVP ONE (20:37)
[2021-02-09 21:27] LABS: Bilirubin,Urine Negative (Negative); Blood,Urine Negative (Negative); Clarity,Urine Clear (Clear); Color,Urine Colorless (Yellow); Glucose,Urine (UA) Normal (Normal); Ketones,Urine Negative (Negative); Leukocyte Esterase,Urine Small (Negative); Nitrite,Urine Negative (Negative); Protein,Urine Negative (Neg-Trace); RBC,Urine 0-3 per hpf (0-3); Specific Gravity,Urine 1.008 (1.010-1.025); Urobilinogen,Urine Normal (Normal); WBC,Urine 0-3 per hpf (0-3)
[2021-02-10] MEDS ORDERED: Ondansetron 4 MG/2 ML VIAL IVP PRN (00:54)
[2021-02-10] MEDS ORDERED: Naloxone 0.4 MG/ML INJ IVP PRN (00:54)
[2021-02-10] MEDS ORDERED: 0.9 % Sodium Chloride 1,000 ML IVC SCH (01:00)
[2021-02-10 02:37] LABS: Hematocrit 34.8 % (35.3-44.9); Mean Corpuscular Hemoglobin 28.3 pg (28.0-33.3); Mean Corpuscular Volume 91.1 fL (83.0-100.0); Mean Platelet Volume 9.2 fL (9.4-12.4); Platelet Count 275 K/mcL (140-400); Red Blood Count 3.82 M/mcL (3.82-4.97); Red Cell Distribution Width 12.3 % (11.5-14.5); White Blood Count 8.3 K/mcL (4.3-11.1)
[2021-02-10 02:39] LABS: Hemoglobin 10.8 g/dL (11.5-15.4)
[2021-02-10 02:54] LABS: BUN/Creatinine Ratio 10 (6-26); Blood Urea Nitrogen 5 mg/dL (8-23); Calcium 8.5 mg/dL (8.6-10.3); Carbon Dioxide 32 mEq/L (23-29); Chloride 99 mEq/L (98-107); Glucose 163 mg/dL (70-105); Osmolality,Calculated 285 (280-300); Potassium 3.9 mEq/L (3.5-5.1); Sodium 137 mEq/L (136-145); eGFR For African Americans > 60 (> 60); eGFR For Non-African Americans > 60 (> 60)
[2021-02-10] MEDS ORDERED: CefTRIAXone 1,000 MG VIAL ONE (08:52)
[2021-02-10] MEDS: MethylPREDNISolone 40 MG/ML VIAL IVP SCH ×3 (08:58→23:40)
[2021-02-10] MEDS: cefTRIAXone 1,000 MG in 0.9 % Sodium Chloride Mini Bag 100 ML IVPB SCH (08:58)
[2021-02-10] MEDS: Ipratropium/Albuterol Neb 3 ML IH SCH ×5 (09:31→23:20)
[2021-02-10] MEDS: Azithromycin 500 MG in 0.9 % Sodium Chloride 250 ML IVPB SCH (09:45)
[2021-02-10] MEDS: Budesonide/Formoterol 160/4.5 1 PUFF INH IH SCH ×2 (09:51→20:13)
[2021-02-10] MEDS: GuaiFENesin Liq 200 MG/10 ML UDC PO PRN (16:53)
[2021-02-11] MEDS: Ipratropium/Albuterol Neb 3 ML IH SCH ×2 (03:15→07:36)
[2021-02-11 06:43] LABS: Basophils % 0.1 %; Hematocrit 31.7 % (35.3-44.9); Hemoglobin 10.1 g/dL (11.5-15.4); Immature Granulocytes % 0.4 % (0-4); Lymphocytes # 0.8 K/mcL (0.6-4.6); Lymphocytes % 8.8 %; Mean Corpuscular HGB Conc 31.9 g/dL (31.6-35.5); Mean Corpuscular Hemoglobin 28.5 pg (28.0-33.3); Mean Corpuscular Volume 89.3 fL (83.0-100.0); Mean Platelet Volume 9.3 fL (9.4-12.4); Monocytes # 0.2 K/mcL (0.0-1.3); Monocytes % 2.3 %; Neutrophils # 8.3 K/mcL (1.6-8.9); Platelet Count 302 K/mcL (140-400); Red Blood Count 3.55 M/mcL (3.82-4.97); Red Cell Distribution Width 12.1 % (11.5-14.5); Segmented Neutrophils % 88.4 %; White Blood Count 9.3 K/mcL (4.3-11.1)
[2021-02-11 07:01] LABS: BUN/Creatinine Ratio 17 (6-26); Blood Urea Nitrogen 8 mg/dL (8-23); Calcium 9.2 mg/dL (8.6-10.3); Carbon Dioxide 37 mEq/L (23-29); Chloride 99 mEq/L (98-107); Glucose 143 mg/dL (70-105); Magnesium 2.1 mg/dL (1.6-2.6); Osmolality,Calculated 291 (280-300); Phosphorous 2.7 mg/dL (2.7-4.5); Potassium 3.5 mEq/L (3.5-5.1); Sodium 140 mEq/L (136-145); eGFR For African Americans > 60 (> 60); eGFR For Non-African Americans > 60 (> 60)
[2021-02-11] MEDS: Budesonide/Formoterol 160/4.5 1 PUFF INH IH SCH ×2 (07:36→19:49)
[2021-02-11] MEDS: MethylPREDNISolone 40 MG/ML VIAL IVP SCH ×3 (08:16→23:55)
[2021-02-11] MEDS ORDERED: *HR* Propofol 200 MG/20 ML VIAL IVP ONE (09:43)
[2021-02-11] MEDS ORDERED: Lidocaine -MPF 2% 5 ML VIAL ONE (09:43)
[2021-02-11] MEDS ORDERED: *HR* Succinylcholine 200 MG/10 ML VIAL IVP ONE (09:43)
[2021-02-11] MEDS ORDERED: Ipratropium/Albuterol Neb 3 ML ONE (09:52)
[2021-02-11] MEDS ORDERED: tiZANidine 4 MG TABLET PO PRN (10:44)
[2021-02-11] MEDS ORDERED: Ipratropium/Albuterol Neb 3 ML IH PRN (11:15)
[2021-02-11] MEDS: Azithromycin 500 MG in 0.9 % Sodium Chloride 250 ML IVPB SCH (11:17)
[2021-02-11] MEDS: lisinopriL 10 MG TABLET PO SCH (11:17)
[2021-02-11] MEDS: Gabapentin 300 MG CAPSULE PO SCH ×2 (11:17→20:09)
[2021-02-11] MEDS: cefTRIAXone 1,000 MG in 0.9 % Sodium Chloride Mini Bag 100 ML IVPB SCH (11:17)
[2021-02-11] MEDS: Ringers Solution, Lactated 1,000 ML IVC SCH (11:22)
[2021-02-11] MEDS: GuaiFENesin Liq 200 MG/10 ML UDC PO PRN ×2 (11:27→20:08)
[2021-02-11] MEDS: Tiotropium 10 INH DOSE IH SCH (11:29)
[2021-02-11 12:41] LABS: Appearance of Body Fluid Cloudy (Clear); Volume of Body Fluid 13 mL
[2021-02-11] MEDS ORDERED: Melatonin 3 MG TABLET PO PRN (17:17)
[2021-02-12 03:12] VITALS: PULSE 77
[2021-02-12] MEDS: Ringers Solution, Lactated 1,000 ML IVC SCH (05:11)
[2021-02-12 05:33] LABS: Basophils % 0.1 %; Hematocrit 33.3 % (35.3-44.9); Hemoglobin 10.5 g/dL (11.5-15.4); Immature Granulocytes % 0.4 % (0-4); Lymphocytes % 10.9 %; Mean Corpuscular HGB Conc 31.5 g/dL (31.6-35.5); Mean Corpuscular Hemoglobin 28.4 pg (28.0-33.3); Mean Platelet Volume 9.1 fL (9.4-12.4); Monocytes # 0.3 K/mcL (0.0-1.3); Monocytes % 3.1 %; Neutrophils # 7.7 K/mcL (1.6-8.9); Platelet Count 350 K/mcL (140-400); Red Cell Distribution Width 12.4 % (11.5-14.5); Segmented Neutrophils % 85.5 %
[2021-02-12 05:50] LABS: BUN/Creatinine Ratio 19 (6-26); Blood Urea Nitrogen 10 mg/dL (8-23); Calcium 9.6 mg/dL (8.6-10.3); Carbon Dioxide 37 mEq/L (23-29); Chloride 97 mEq/L (98-107); Glucose 132 mg/dL (70-105); Magnesium 2.1 mg/dL (1.6-2.6); Osmolality,Calculated 295 (280-300); Potassium 3.8 mEq/L (3.5-5.1); Sodium 142 mEq/L (136-145); eGFR For African Americans > 60 (> 60); eGFR For Non-African Americans > 60 (> 60)
[2021-02-12 06:54] VITALS: BP 151/76; TEMP 97.7
[2021-02-12] MEDS: Budesonide/Formoterol 160/4.5 1 PUFF INH IH SCH (07:45)
[2021-02-12] MEDS: Tiotropium 10 INH DOSE IH SCH (07:45)
[2021-02-12 08:13] VITALS: O2SAT 97
[2021-02-12] MEDS ORDERED: NON-FORMULARY MEDICATION 1 EACH EACH (Fluticasone/Umeclidin/Vilanter [Trelegy Ellipta 100- PO SCH (09:00)
[2021-02-12] MEDS: Gabapentin 300 MG CAPSULE PO SCH (09:06)
[2021-02-12] MEDS: lisinopriL 10 MG TABLET PO SCH (09:06)
[2021-02-12] MEDS: MethylPREDNISolone 40 MG/ML VIAL IVP SCH (09:09)
[2021-02-12] MEDS: cefTRIAXone 1,000 MG in 0.9 % Sodium Chloride Mini Bag 100 ML IVPB SCH (09:09)
[2021-02-12] MEDS: Azithromycin 500 MG in 0.9 % Sodium Chloride 250 ML IVPB SCH (09:52)
== END 2021-02-12 12:02 | disposition home or self-care (01) | DRG 163 ==
LOC: 3ANU 16:50 → EMEROOARM 16:50 → SUATTDRO 23:25 → 3ANU 02-10 00:20
PROVIDERS: ADMIT Student in an Organized Health Care Education/Training Program; ATTEND Internal Medicine

== ENCOUNTER 2021-10-30 18:46 | Inpatient (IN) ==
[2021-10-30] MEDS ORDERED: Ipratropium/Albuterol Neb 3 ML IH ONE ×2 (19:00→20:30)
[2021-10-30] MEDS ORDERED: 0.9 % Sodium Chloride 1,000 ML IVC ONE (19:00)
[2021-10-30 19:15] LABS: Basophils % 0.2 %; Red Cell Distribution Width 13.2 % (11.5-14.5)
[2021-10-30 19:16] LABS: Basophils # 0.1 K/mcL (0.0-0.2); Eosinophils # 0.1 K/mcL (0.0-0.6); Eosinophils % 0.2 %; Hematocrit 40.1 % (35.3-44.9); Immature Granulocytes % 0.7 % (0-4); Lymphocytes # 2.7 K/mcL (0.6-4.6); Lymphocytes % 10.4 %; Mean Corpuscular HGB Conc 32.4 g/dL (31.6-35.5); Mean Corpuscular Hemoglobin 28.6 pg (28.0-33.3); Mean Corpuscular Volume 88.3 fL (83.0-100.0); Mean Platelet Volume 9.5 fL (9.4-12.4); Monocytes # 2.2 K/mcL (0.0-1.3); Monocytes % 8.3 %; Neutrophils # 20.9 K/mcL (1.6-8.9); Platelet Count 331 K/mcL (140-400); Red Blood Count 4.54 M/mcL (3.82-4.97); Segmented Neutrophils % 80.2 %; White Blood Count 26.1 K/mcL (4.3-11.1)
[2021-10-30 19:35] LABS: Alanine Aminotransferase 10 Units/L (7-52); Albumin 4.1 g/dL (3.5-5.7); Albumin/Globulin Ratio 1.1 (1.1-2.2); Alkaline Phosphatase 120 Units/L (34-104); Aspartate Amino Transferase 14 Units/L (13-39); BUN/Creatinine Ratio 14 (6-26); Bilirubin,Direct 0.3 mg/dL (0.0-0.2); Bilirubin,Indirect 0.8 mg/dL (0.0-1.0); Bilirubin,Total 1.1 mg/dL (0.3-1.0); Blood Urea Nitrogen 9 mg/dL (8-23); Calcium 9.3 mg/dL (8.6-10.3); Carbon Dioxide 34 mEq/L (23-29); Chloride 88 mEq/L (98-107); Globulin 3.7 g/dL (2.4-3.5); Glucose 151 mg/dL (70-105); Osmolality,Calculated 268 (280-300); Potassium 4.1 mEq/L (3.5-5.1); Sodium 128 mEq/L (136-145); Total Protein 7.8 g/dL (6.4-8.9); Troponin I < 0.03 ng/mL (< 0.04); eGFR For African Americans > 60 (> 60); eGFR For Non-African Americans > 60 (> 60)
[2021-10-30 19:40] LABS: INR 1.2; Prothrombin Time 13.4 Seconds (9.4-12.1)
[2021-10-30 19:43] LABS: Activated Partial Thrombo Time 44.2 Seconds (26.0-36.0)
[2021-10-30 19:48] LABS: Influenza A PCR Negative (Negative); Influenza B PCR Negative (Negative); Resp. Syncytial Virus PCR Negative (Negative)
[2021-10-30 19:56] LABS: SARS-CoV-2 by PCR (In House) Negative (Negative)
[2021-10-30] MEDS ORDERED: Azithromycin 500 MG in 0.9 % Sodium Chloride 250 ML IVPB ONE (20:22)
[2021-10-30] MEDS ORDERED: cefTRIAXone 1,000 MG in 0.9 % Sodium Chloride Mini Bag 100 ML IVPB ONE (20:22)
[2021-10-30 20:23] LABS: ABG Base Excess 4 mEq/L (-2 to 3); ABG HCO3 33 mEq/L (21-27); ABG Oxygen Saturation 96 % (95-98); ABG PCO2 75 mmHg (35-45); ABG PH 7.25 pH Units (7.32-7.45); ABG PO2 102 mmHg (85-104); ABG TCO2 35 mEq/L (20-26); Blood Gas Modality NIV
[2021-10-30] MEDS ORDERED: Acetaminophen 325 MG TABLET PO PRN (22:16)
[2021-10-30] MEDS ORDERED: Ondansetron 4 MG/2 ML VIAL IVP PRN (22:16)
[2021-10-30] MEDS ORDERED: Naloxone 0.4 MG/ML INJ IVP PRN (22:16)
[2021-10-30 22:28] LABS: ABG Base Excess 2 mEq/L (-2 to 3); ABG HCO3 33 mEq/L (21-27); ABG Oxygen Saturation 91 % (95-98); ABG PCO2 91 mmHg (35-45); ABG PH 7.17 pH Units (7.32-7.45); ABG PO2 81 mmHg (85-104); ABG TCO2 36 mEq/L (20-26); Blood Gas Modality NIV
[2021-10-30 22:39] LABS: ABG Base Excess 1 mEq/L (-2 to 3); ABG HCO3 32 mEq/L (21-27); ABG Oxygen Saturation 93 % (95-98); ABG PCO2 85 mmHg (35-45); ABG PH 7.19 pH Units (7.32-7.45); ABG PO2 88 mmHg (85-104); ABG TCO2 35 mEq/L (20-26)
[2021-10-30] MEDS ORDERED: methylPREDNISolone 125 MG/2 ML VIAL IVP ONE (23:58)
[2021-10-30] MEDS ORDERED: Magnesium Sulfate 1 GM/102 ML PIGGYBACK IVPB ONE (23:58)
[2021-10-31 02:31] LABS: Basophils % 0.1 %; Hemoglobin 12.9 g/dL (11.5-15.4); Immature Granulocytes % 0.5 % (0-4); Lymphocytes # 0.4 K/mcL (0.6-4.6); Lymphocytes % 2.1 %; Mean Corpuscular HGB Conc 32.3 g/dL (31.6-35.5); Mean Corpuscular Hemoglobin 29.1 pg (28.0-33.3); Mean Corpuscular Volume 90.1 fL (83.0-100.0); Mean Platelet Volume 9.5 fL (9.4-12.4); Monocytes # 0.5 K/mcL (0.0-1.3); Monocytes % 2.6 %; Neutrophils # 18.5 K/mcL (1.6-8.9); Platelet Count 198 K/mcL (140-400); Red Blood Count 4.44 M/mcL (3.82-4.97); Red Cell Distribution Width 13.3 % (11.5-14.5); Segmented Neutrophils % 94.7 %; White Blood Count 19.5 K/mcL (4.3-11.1)
[2021-10-31 03:27] LABS: Thyroid Stimulating Hormone 0.602 mcIU/mL (0.340-5.600); Troponin I 0.04 ng/mL (< 0.04)
[2021-10-31 03:38] LABS: ABG Base Excess 3 mEq/L (-2 to 3); ABG HCO3 32 mEq/L (21-27); ABG Oxygen Saturation 95 % (95-98); ABG PCO2 71 mmHg (35-45); ABG PH 7.26 pH Units (7.32-7.45); ABG PO2 87 mmHg (85-104); ABG TCO2 34 mEq/L (20-26); Blood Gas Modality NIV; Blood Gas VT 400 cc
[2021-10-31 04:22] LABS: BUN/Creatinine Ratio 16 (6-26); Blood Urea Nitrogen 11 mg/dL (8-23); Calcium 8.4 mg/dL (8.6-10.3); Carbon Dioxide 27 mEq/L (23-29); Chloride 94 mEq/L (98-107); Glucose 122 mg/dL (70-105); Magnesium 2.2 mg/dL (1.6-2.6); Osmolality,Calculated 275 (280-300); Potassium 4.6 mEq/L (3.5-5.1); Sodium 132 mEq/L (136-145); eGFR For African Americans > 60 (> 60); eGFR For Non-African Americans > 60 (> 60)
[2021-10-31] MEDS: MethylPREDNISolone 40 MG/ML VIAL IVP SCH ×2 (05:30→17:58)
[2021-10-31] MEDS ORDERED: Ipratropium/Albuterol Neb 3 ML IH PRN (08:18)
[2021-10-31] MEDS: cefTRIAXone 2,000 MG in 0.9 % Sodium Chloride 20 ML IVP SCH (09:05)
[2021-10-31] MEDS: *HR* Enoxaparin 30 MG/0.3 ML SYRINGE SQ SCH (09:05)
[2021-10-31] MEDS ORDERED: ALPRAZolam 0.25 MG TABLET PO PRN (09:30)
[2021-10-31] MEDS: Ipratropium/Albuterol Neb 3 ML IH SCH ×3 (11:01→20:25)
[2021-10-31] MEDS ORDERED: tiZANidine 4 MG TABLET PO PRN (12:49)
[2021-10-31] MEDS: ALPRAZolam 0.25 MG TABLET PO PRN ×2 (14:06→19:38)
[2021-10-31] MEDS ORDERED: Azithromycin 500 MG in 0.9 % Sodium Chloride 250 ML IVPB SCH (18:00)
[2021-11-01 01:44] LABS: VBG HCO3 40 mEq/L (21-27); VBG PCO2 85 mmHg (41-51); VBG PH 7.28 pH Units (7.32-7.42); VBG PO2 143 mmHg (25-50)
[2021-11-01 01:57] LABS: Hematocrit 32.7 % (35.3-44.9); Immature Granulocytes % 0.3 % (0-4); Lymphocytes # 0.5 K/mcL (0.6-4.6); Lymphocytes % 3.1 %; Mean Corpuscular HGB Conc 31.8 g/dL (31.6-35.5); Mean Corpuscular Hemoglobin 28.5 pg (28.0-33.3); Mean Corpuscular Volume 89.6 fL (83.0-100.0); Mean Platelet Volume 9.9 fL (9.4-12.4); Monocytes # 0.5 K/mcL (0.0-1.3); Monocytes % 3.1 %; Neutrophils # 14.7 K/mcL (1.6-8.9); Platelet Count 200 K/mcL (140-400); Red Blood Count 3.65 M/mcL (3.82-4.97); Segmented Neutrophils % 93.5 %; White Blood Count 15.7 K/mcL (4.3-11.1)
[2021-11-01 02:02] LABS: Hemoglobin 10.4 g/dL (11.5-15.4)
[2021-11-01 02:04] LABS: BUN/Creatinine Ratio 30 (6-26); Blood Urea Nitrogen 14 mg/dL (8-23); Calcium 8.8 mg/dL (8.6-10.3); Carbon Dioxide 37 mEq/L (23-29); Chloride 94 mEq/L (98-107); Glucose 141 mg/dL (70-105); Osmolality,Calculated 283 (280-300); Potassium 4.3 mEq/L (3.5-5.1); Sodium 135 mEq/L (136-145); eGFR For African Americans > 60 (> 60); eGFR For Non-African Americans > 60 (> 60)
[2021-11-01] MEDS: Ipratropium/Albuterol Neb 3 ML IH SCH ×2 (03:26→09:08)
[2021-11-01 03:35] VITALS: TEMP 97.8
[2021-11-01] MEDS: ALPRAZolam 0.25 MG TABLET PO PRN (04:20)
[2021-11-01] MEDS: MethylPREDNISolone 40 MG/ML VIAL IVP SCH (04:20)
[2021-11-01] MEDS: cefTRIAXone 2,000 MG in 0.9 % Sodium Chloride 20 ML IVP SCH (08:56)
[2021-11-01 08:59] VITALS: BP 124/61; PULSE 75
[2021-11-01] MEDS ORDERED: Gabapentin 300 MG CAPSULE PO SCH (09:00)
[2021-11-01] MEDS ORDERED: lisinopriL 10 MG TABLET PO SCH (09:00)
[2021-11-01] MEDS ORDERED: Aspirin 81 MG TAB.CHEW PO SCH (09:00)
[2021-11-01] MEDS: *HR* Enoxaparin 30 MG/0.3 ML SYRINGE SQ SCH (09:05)
[2021-11-01 09:15] VITALS: O2SAT 98
[2021-11-01] MEDS ORDERED: Budesonide/Formoterol 160/4.5 1 PUFF INH IH SCH (10:00)
[2021-11-03 14:37] LABS: ABG Base Excess 5 mEq/L (-2 to 3); ABG HCO3 37 mEq/L (21-27); ABG Oxygen Saturation 94 % (95-98); ABG PCO2 93 mmHg (35-45); ABG PO2 90 mmHg (85-104); ABG TCO2 39 mEq/L (20-26); Blood Gas Modality NIV
== END 2021-11-01 12:55 | disposition home or self-care (01) | DRG 193 ==
LOC: EMEROOARM 18:46 → 3NENU 22:27
PROVIDERS: ADMIT Internal Medicine; ATTEND Internal Medicine

== ENCOUNTER 2022-03-03 17:11 | Inpatient (IN) ==
[2022-03-03] MEDS ORDERED: Ipratropium/Albuterol Neb 3 ML IH ONE (17:19)
[2022-03-03] MEDS ORDERED: methylPREDNISolone 125 MG/2 ML VIAL IVP ONE (17:19)
[2022-03-03] MEDS ORDERED: Ipratropium/Albuterol Neb 3 ML ONE (17:19)
[2022-03-03] MEDS ORDERED: methylPREDNISolone 125 MG/2 ML VIAL ONE (17:29)
[2022-03-03 17:39] LABS: Basophils % 0.2 %; Hematocrit 38.4 % (35.3-44.9); Hemoglobin 11.7 g/dL (11.5-15.4); Immature Granulocytes % 0.4 % (0-4); Lymphocytes # 0.9 K/mcL (0.6-4.6); Lymphocytes % 5.5 %; Mean Corpuscular HGB Conc 30.5 g/dL (31.6-35.5); Mean Corpuscular Hemoglobin 27.3 pg (28.0-33.3); Mean Corpuscular Volume 89.5 fL (83.0-100.0); Mean Platelet Volume 9.9 fL (9.4-12.4); Monocytes # 1.5 K/mcL (0.0-1.3); Neutrophils # 14.2 K/mcL (1.6-8.9); Platelet Count 256 K/mcL (140-400); Red Blood Count 4.29 M/mcL (3.82-4.97); Red Cell Distribution Width 13.6 % (11.5-14.5); Segmented Neutrophils % 84.9 %; White Blood Count 16.6 K/mcL (4.3-11.1)
[2022-03-03 17:50] LABS: VBG HCO3 35 mEq/L (21-27); VBG PCO2 75 mmHg (41-51); VBG PH 7.28 pH Units (7.32-7.42); VBG PO2 57 mmHg (25-50)
[2022-03-03 18:05] LABS: Calcium 9.4 mg/dL (8.6-10.3); Potassium 4.9 mEq/L (3.5-5.1); Troponin I 0.12 ng/mL (< 0.04)
[2022-03-03] MEDS ORDERED: Ringers Solution, Lactated 1,000 ML IVC ONE (18:14)
[2022-03-03 18:30] LABS: Influenza A PCR Negative (Negative); Influenza B PCR Negative (Negative); Resp. Syncytial Virus PCR Negative (Negative)
[2022-03-03 18:46] LABS: Bilirubin,Urine Negative (Negative); Blood,Urine Negative (Negative); Clarity,Urine Clear (Clear); Color,Urine Yellow (Yellow); Glucose,Urine (UA) Normal (Normal); Hyaline Casts,Urine Few per lpf (None Seen); Ketones,Urine Negative (Negative); Leukocyte Esterase,Urine Negative (Negative); Mucus,Urine Few per lpf (None-Few); Nitrite,Urine Negative (Negative); PH,Urine 5.5 pH Units (5.0-8.0); Protein,Urine 70 mg/dL (Neg-Trace); RBC,Urine 0-3 per hpf (0-3); Specific Gravity,Urine 1.021 (1.010-1.025); Squamous Epithelial Cell,Urine Few per hpf (None-Few); WBC,Urine 0-3 per hpf (0-3)
[2022-03-03 18:47] LABS: SARS-CoV-2 by PCR (In House) Negative (Negative)
[2022-03-03] MEDS ORDERED: Albuterol 2.5 MG/3 ML NEBULIZER IH ONE (19:52)
[2022-03-03] MEDS ORDERED: 0.9 % Sodium Chloride 1,000 ML IVC SCH (20:00)
[2022-03-03] MEDS ORDERED: Ondansetron 4 MG/2 ML VIAL IVP PRN (20:00)
[2022-03-03] MEDS ORDERED: Naloxone 0.4 MG/ML INJ IVP PRN (20:00)
[2022-03-03] MEDS ORDERED: Iopamidol - 370 500 ML MLS IVP ONE (20:31)
[2022-03-03] MEDS ORDERED: cefTRIAXone 1,000 MG in Water for inj. (sterile) 10 ML IVP ONE (20:52)
[2022-03-03] MEDS ORDERED: Aspirin 325 MG TABLET PO ONE (21:00)
[2022-03-03] MEDS: Azithromycin 500 MG in 0.9 % Sodium Chloride 250 ML IVPB SCH (22:20)
[2022-03-03] MEDS: Ipratropium/Albuterol Neb 3 ML IH SCH ×2 (22:28→23:51)
[2022-03-03] MEDS: *HR* Heparin 5,000 UNIT/ML VIAL SQ SCH (23:26)
[2022-03-03] MEDS: MethylPREDNISolone 40 MG/ML VIAL IVP SCH (23:26)
[2022-03-04 03:11] LABS: Hematocrit 33.7 % (35.3-44.9); Hemoglobin 10.5 g/dL (11.5-15.4); Mean Corpuscular HGB Conc 31.2 g/dL (31.6-35.5); Mean Corpuscular Volume 89.9 fL (83.0-100.0); Platelet Count 177 K/mcL (140-400); Red Blood Count 3.75 M/mcL (3.82-4.97); Red Cell Distribution Width 13.5 % (11.5-14.5); White Blood Count 9.7 K/mcL (4.3-11.1)
[2022-03-04 03:17] LABS: VBG HCO3 29 mEq/L (21-27); VBG PCO2 45 mmHg (41-51); VBG PH 7.41 pH Units (7.32-7.42); VBG PO2 157 mmHg (25-50)
[2022-03-04 03:31] LABS: Albumin 3.2 g/dL (3.5-5.7); Bilirubin,Total 0.3 mg/dL (0.3-1.0); Calcium 8.6 mg/dL (8.6-10.3); Globulin 3.1 g/dL (2.4-3.5); Potassium 4.7 mEq/L (3.5-5.1); Total Protein 6.3 g/dL (6.4-8.9)
[2022-03-04] MEDS: Ipratropium/Albuterol Neb 3 ML IH SCH ×6 (04:24→23:03)
[2022-03-04] MEDS: *HR* Heparin 5,000 UNIT/ML VIAL SQ SCH (05:09)
[2022-03-04] MEDS: MethylPREDNISolone 40 MG/ML VIAL IVP SCH ×2 (05:10→17:57)
[2022-03-04] MEDS ORDERED: *HR* Heparin 5,000 UNIT/ML VIAL IVP PRN ×2 (06:27)
[2022-03-04] MEDS ORDERED: Heparin 25,000UNIT/250ML 1/2NS 25,000 UNIT/250 ML IV.SOLN IVC SCH (06:30)
[2022-03-04] MEDS: Acetaminophen 325 MG TABLET PO PRN ×2 (09:12→15:56)
[2022-03-04 09:14] LABS: Heparin anti-factor XA UFH 0.05 IU/mL (0.30-0.70); INR 1.1; Prothrombin Time 12.4 Seconds (9.4-12.1)
[2022-03-04] MEDS ORDERED: ALPRAZolam 0.25 MG TABLET PO PRN (11:32)
[2022-03-04] MEDS: cefTRIAXone 1,000 MG in Water for inj. (sterile) 10 ML IVP SCH (13:02)
[2022-03-04] MEDS ORDERED: tiZANidine 4 MG TABLET PO PRN (13:45)
[2022-03-04] MEDS: lisinopriL 10 MG TABLET PO SCH (14:38)
[2022-03-04] MEDS: Gabapentin 300 MG CAPSULE PO SCH (14:38)
[2022-03-04] MEDS: ALPRAZolam 0.5 MG TABLET PO PRN (21:12)
[2022-03-04] MEDS: Azithromycin 500 MG in 0.9 % Sodium Chloride 250 ML IVPB SCH (21:13)
[2022-03-05 01:27] LABS: Hematocrit 28.9 % (35.3-44.9); Immature Granulocytes % 0.3 % (0-4); Lymphocytes # 0.5 K/mcL (0.6-4.6); Lymphocytes % 5.6 %; Mean Corpuscular HGB Conc 30.4 g/dL (31.6-35.5); Mean Corpuscular Hemoglobin 27.5 pg (28.0-33.3); Mean Corpuscular Volume 90.3 fL (83.0-100.0); Mean Platelet Volume 10.1 fL (9.4-12.4); Monocytes # 0.4 K/mcL (0.0-1.3); Monocytes % 3.9 %; Neutrophils # 8.1 K/mcL (1.6-8.9); Platelet Count 214 K/mcL (140-400); Red Cell Distribution Width 13.7 % (11.5-14.5); Segmented Neutrophils % 90.2 %
[2022-03-05 01:32] LABS: Hemoglobin 8.8 g/dL (11.5-15.4)
[2022-03-05 01:39] LABS: BUN/Creatinine Ratio 41 (6-26); Blood Urea Nitrogen 26 mg/dL (8-23); Calcium 8.6 mg/dL (8.6-10.3); Carbon Dioxide 37 mEq/L (23-29); Chloride 100 mEq/L (98-107); Glucose 138 mg/dL (70-105); Osmolality,Calculated 293 (280-300); Potassium 4.3 mEq/L (3.5-5.1); Sodium 138 mEq/L (136-145)
[2022-03-05] MEDS: Ipratropium/Albuterol Neb 3 ML IH SCH ×6 (03:13→23:17)
[2022-03-05] MEDS: MethylPREDNISolone 40 MG/ML VIAL IVP SCH ×2 (05:33→18:34)
[2022-03-05] MEDS: ALPRAZolam 0.5 MG TABLET PO PRN ×3 (07:42→19:51)
[2022-03-05] MEDS: lisinopriL 10 MG TABLET PO SCH (07:43)
[2022-03-05] MEDS: Gabapentin 300 MG CAPSULE PO SCH (07:43)
[2022-03-05] MEDS: Aspirin 81 MG TAB.CHEW PO SCH (07:43)
[2022-03-05] MEDS: cefTRIAXone 1,000 MG in Water for inj. (sterile) 10 ML IVP SCH (15:00)
[2022-03-05] MEDS: Azithromycin 500 MG in 0.9 % Sodium Chloride 250 ML IVPB SCH (19:51)
[2022-03-06 02:53] LABS: Hematocrit 28.8 % (35.3-44.9); Hemoglobin 8.6 g/dL (11.5-15.4); Immature Granulocytes % 0.3 % (0-4); Lymphocytes # 0.5 K/mcL (0.6-4.6); Lymphocytes % 7.6 %; Mean Corpuscular HGB Conc 29.9 g/dL (31.6-35.5); Mean Corpuscular Hemoglobin 27.2 pg (28.0-33.3); Mean Corpuscular Volume 91.1 fL (83.0-100.0); Mean Platelet Volume 9.9 fL (9.4-12.4); Monocytes # 0.3 K/mcL (0.0-1.3); Neutrophils # 5.9 K/mcL (1.6-8.9); Platelet Count 270 K/mcL (140-400); Red Blood Count 3.16 M/mcL (3.82-4.97); Red Cell Distribution Width 13.9 % (11.5-14.5); Segmented Neutrophils % 88.1 %; White Blood Count 6.7 K/mcL (4.3-11.1)
[2022-03-06 02:59] LABS: Prothrombin Time 10.9 Seconds (9.4-12.1)
[2022-03-06 03:21] LABS: BUN/Creatinine Ratio 53 (6-26); Blood Urea Nitrogen 23 mg/dL (8-23); Carbon Dioxide 40 mEq/L (23-29); Chloride 99 mEq/L (98-107); Glucose 124 mg/dL (70-105); Osmolality,Calculated 299 (280-300); Potassium 4.7 mEq/L (3.5-5.1); Sodium 142 mEq/L (136-145)
[2022-03-06] MEDS ORDERED: *HR* LORazepam 2 MG/ML VIAL IVP ONE (03:32)
[2022-03-06] MEDS: Ipratropium/Albuterol Neb 3 ML IH SCH ×6 (03:52→23:03)
[2022-03-06] MEDS: MethylPREDNISolone 40 MG/ML VIAL IVP SCH ×2 (05:45→17:58)
[2022-03-06] MEDS: Gabapentin 300 MG CAPSULE PO SCH (08:26)
[2022-03-06] MEDS: lisinopriL 10 MG TABLET PO SCH (08:26)
[2022-03-06] MEDS: ALPRAZolam 0.5 MG TABLET PO PRN ×3 (08:26→23:46)
[2022-03-06 11:19] LABS: ABG Base Excess 12 mEq/L (-2 to 3); ABG HCO3 40 mEq/L (21-27); ABG Oxygen Saturation 97 % (95-98); ABG PCO2 71 mmHg (35-45); ABG PH 7.36 pH Units (7.32-7.45); ABG PO2 103 mmHg (85-104); ABG TCO2 42 mEq/L (20-26); Blood Gas FiO2 4.5 (1-15=lpm or21-100=%)
[2022-03-06] MEDS: cefTRIAXone 1,000 MG in Water for inj. (sterile) 10 ML IVP SCH (12:26)
[2022-03-06] MEDS: Azithromycin 500 MG in 0.9 % Sodium Chloride 250 ML IVPB SCH (20:33)
[2022-03-07 02:53] LABS: Mean Corpuscular Volume 90.3 fL (83.0-100.0); Mean Platelet Volume 9.3 fL (9.4-12.4); Platelet Count 273 K/mcL (140-400); Red Blood Count 3.21 M/mcL (3.82-4.97); Red Cell Distribution Width 13.6 % (11.5-14.5); White Blood Count 5.3 K/mcL (4.3-11.1)
[2022-03-07 03:20] LABS: BUN/Creatinine Ratio 46 (6-26); Blood Urea Nitrogen 19 mg/dL (8-23); Calcium 8.9 mg/dL (8.6-10.3); Carbon Dioxide 42 mEq/L (23-29); Chloride 94 mEq/L (98-107); Glucose 122 mg/dL (70-105); Osmolality,Calculated 290 (280-300); Potassium 4.3 mEq/L (3.5-5.1); Sodium 138 mEq/L (136-145)
[2022-03-07] MEDS: Ipratropium/Albuterol Neb 3 ML IH SCH ×5 (03:57→20:24)
[2022-03-07] MEDS: MethylPREDNISolone 40 MG/ML VIAL IVP SCH ×2 (05:04→16:51)
[2022-03-07] MEDS: Gabapentin 300 MG CAPSULE PO SCH (08:23)
[2022-03-07] MEDS: lisinopriL 10 MG TABLET PO SCH (08:24)
[2022-03-07] MEDS: ALPRAZolam 0.5 MG TABLET PO PRN ×2 (08:29→20:50)
[2022-03-07] MEDS ORDERED: Albuterol 2.5 MG/3 ML NEBULIZER IH PRN (09:53)
[2022-03-07] MEDS ORDERED: Lidocaine HCL 4 ML Topical Solution (Laryng-O-Jet Kit Sterile Pak) TP ONE (10:07)
[2022-03-07] MEDS ORDERED: *HR* Rocuronium Bromide 50 MG/5 ML VIAL ONE (10:07)
[2022-03-07] MEDS ORDERED: Ondansetron 4 MG/2 ML VIAL ONE (10:07)
[2022-03-07] MEDS ORDERED: Lidocaine -MPF 2% 5 ML VIAL ONE (10:07)
[2022-03-07] MEDS ORDERED: *HR* FentaNYL (PF) 100 MCG/2 ML VIAL ONE (10:12)
[2022-03-07] MEDS ORDERED: Sugammadex Sodium 200 MG/2 ML VIAL IV ONE (11:17)
[2022-03-07] MEDS ORDERED: *HR* Labetalol 20 MG/4 ML SYRINGE IVP ONE ×2 (11:48→11:49)
[2022-03-07] MEDS: cefTRIAXone 1,000 MG in Water for inj. (sterile) 10 ML IVP SCH (14:09)
[2022-03-07 15:40] LABS: Appearance of Body Fluid Slightly Hazy (Clear); Source of Body Fluid RIGHT LOWER LOBE LUN; Volume of Body Fluid 24 mL
[2022-03-07] MEDS: Aspirin 81 MG TAB.CHEW PO SCH (16:50)
[2022-03-07] MEDS: Azithromycin 500 MG in 0.9 % Sodium Chloride 250 ML IVPB SCH (20:47)
[2022-03-08] MEDS: Ipratropium/Albuterol Neb 3 ML IH SCH ×4 (00:35→11:11)
[2022-03-08] MEDS: MethylPREDNISolone 40 MG/ML VIAL IVP SCH (06:14)
[2022-03-08 07:27] VITALS: BP 177/84; PULSE 75; TEMP 97.8
[2022-03-08] MEDS: Aspirin 81 MG TAB.CHEW PO SCH (09:16)
[2022-03-08] MEDS: ALPRAZolam 0.5 MG TABLET PO PRN (09:16)
[2022-03-08] MEDS: lisinopriL 10 MG TABLET PO SCH (09:16)
[2022-03-08] MEDS: Gabapentin 300 MG CAPSULE PO SCH (09:16)
[2022-03-08 12:17] VITALS: O2SAT 90
[2022-03-08] MEDS ORDERED: Azithromycin 250 MG TABLET PO SCH (21:00)
== END 2022-03-08 14:22 | disposition home or self-care (01) | DRG 871 ==
LOC: EMEROOARM 17:11 → 2NENU 17:11
PROVIDERS: ADMIT Internal Medicine; ATTEND Internal Medicine